=== PATIENT | female | born 1950 | race Caucasian/White ===

== ENCOUNTER 2019-01-26 08:12 | Inpatient (IN) | payer MEDICARE ==
[2019-01-26 08:37] LABS: #Basophils 0.1 thou/uL (0.0-0.2); #Eosinphils 0.6 thou/uL (0.0-0.7); #Lymphocytes 1.5 thou/uL (1.20-3.40); #Monocytes 0.4 thou/uL (0.11-0.59); %Basophils 1.2 % (0.0-1.0); %Eosinophils 8.2 % (0.0-10.0); %Lymphocytes 19.5 % (21.0-51.0); %Monocytes 5.2 % (0.0-10.0); Hemoglobin 13.5 g/dL (12.0-16.0); Mean Corpuscular Hemoglobin 33.2 pg (27.0-31.0); Mean Platelet Volume 7.4 fL (7.4-10.4); Platelet Count 195 thou/uL (130-400); RBC Distribution Width 14.2 % (11.5-14.5); Red Blood Cell (RBC) Count 4.07 mill/uL (4.20-5.40); White Blood Cell (WBC) Count 7.6 thou/uL (4.8-10.8)
[2019-01-26] MEDS ORDERED: Nitroglycerin 2% Ointment 1 INCH/1 GM Packet ONE (08:52)
[2019-01-26] MEDS ORDERED: Furosemide 40 MG/4 ML VIAL ONE (08:52)
[2019-01-26] MEDS ORDERED: Nitrazine Tape 1 ROLL ONE (08:53)
[2019-01-26 09:56] LABS: Carbon Dioxide 29 mmol/L (23-31); Chloride 102 mmol/L (98-107); Potassium 3.3 mmol/L (3.5-5.1); Sodium 138 mmol/L (136-145)
[2019-01-26 09:58] LABS: Anion Gap 10 mmol/L (10-20); BUN (Urea Nitrogen) 13 mg/dL (9.8-20.1); Calc. Creatinine Clearance 0 mL/min (70-130); Estimated GFR-MDRD 35
[2019-01-26 09:59] LABS: Albumin 2.4 g/dL (3.4-4.8); Bilirubin, Total 2.6 mg/dL (0.2-1.2); Calcium 7.9 mg/dL (7.8-10.44); Globulin 5.7 g/dL (2.4-3.5); Glucose 90 mg/dL (80-115); Protein, Total 8.1 g/dL (5.8-8.1)
[2019-01-26 10:00] LABS: ALT (SGPT) 20 U/L (8-55); AST (SGOT) 47 U/L (5-34); Alkaline Phosphatase 87 U/L (40-110)
[2019-01-26] MEDS ORDERED: Aspirin Chewable 81 MG TAB ONE (10:18)
--- NOTE | 2019-01-26 10:25 | RAD ---
PORTABLE CHEST: Date: 01/26/19 HISTORY: Shortness of breath. FINDINGS: Heart size within normal limits for portable technique with atherosclerotic changes of the aorta. The re are some mild chronic appearing interstitial lung changes seen. No focal infiltrative process. IMPRESSION: Chronic appearing lung change. POS: [facility]
[2019-01-26 12:50] LABS: Troponin I Less than 0.010 ng/mL (< 0.028)
[2019-01-26] MEDS ORDERED: Bacteriostatic Water 30 ML VIAL FS PRN (13:01)
[2019-01-26] MEDS ORDERED: Acetaminophen 650 MG Suppository PR PRN (13:07)
--- NOTE | 2019-01-26 14:03 | HP ---
TIME OF ASSESSMENT: 1200 hours. PRIMARY CARE PHYSICIAN: None. CHIEF COMPLAINT: Cough and wheezing. HISTORY OF PRESENT ILLNESS: Ms. Busch is a pleasant 68-year-old woman, who presents with complaints of a new cough for the last three days, productive for white sputum. The patient states she has been wheezing and feeling very short of breath. The patient denies any associated chest pain. She reports feeling feverish at night with chills. She states she was feeling well up until three days ago when she had generalized aching and then began to feel feverish and came down with a cough. Denies being around any sick family members at home. Denies having any history of COPD or asthma. Denies any hemoptysis. Due to feeling unwell, she has been more sedentary for the last three days and reports feeling generally weak. In the emergency department, she underwent an EKG that showed sinus bradycardia with a heart rate of 55. No ST changes or T-wave abnormalities. She had laboratory studies done demonstrating a white count of 7.6, hemoglobin of 13.5, hematocrit 42.2, platelets 195, neutrophils 66%. Sodium 138, potassium 3.3, BUN 13, creatinine 1.48, GFR 35, glucose 90, calcium 7.9, total bilirubin was elevated at 2.6 and AST of 47, ALT 20, alkaline phosphatase 87. Troponin negative x1. BNP 146.5, albumin 2.4. She underwent a chest x-ray that demonstrated chronic appearing lung changes. The patient was thought to be in fluid overload due to history of cirrhosis and was treated with furosemide 80 mg. She was given 324 mg of aspirin and 1 inch of Nitro-Bid. Per the Emergency Department, she had a saturation of 85%, which improved to 96% on 4 L of oxygen by nasal cannula. PAST MEDICAL HISTORY: 1. Nephrolithiasis. 2. Hypothyroidism. 3. Cirrhosis. 4. Irritable bowel syndrome. 5. Hypertension. 6. Psoriasis. 7. Anxiety. 8. Depression. PAST SURGICAL HISTORY: 1. Kidney stone removal. 2. Cholecystectomy. 3. Hernia repair x2. 4. Tonsillectomy. 5. Tubal ligation. SOCIAL HISTORY: The patient lives with her daughter. She recently moved to the area and has not established care with a physician yet. Denies any tobacco use, alcohol consumption, or illicit drug use. ALLERGIES: PENICILLIN, ALBUTEROL. CURRENT MEDICATIONS: 1. Trazodone. 2. Loratadine. 3. Potassium chloride. 4. Lactulose. 5. Morphine. 6. Tylenol with Codeine. 7. Venlafaxine. 8. Synthroid. 9. Tylenol. 10. Lorazepam. 11. Hyoscyamine. 12. Dulcolax. 13. Promethazine. 14. Furosemide. 15. Propranolol. 16. Spironolactone. PHYSICAL EXAMINATION: GENERAL: The patient appears fatigued, but is resting comfortably and is in no acute distress. VITAL SIGNS: Temperature 97.8, pulse 60, blood pressure 148/81, respirations 16, O2 saturation 95% on 4 L of oxygen. HEENT: Normocephalic and atraumatic. Pupils are equal, round, and reactive to light. Sclerae without icterus. Oropharynx is clear. NECK: Supple. No lymphadenopathy. LUNGS: Notable for diffuse inspiratory and expiratory wheezing. No crackles. The patient became significantly short of breath with minimal exertion such as sitting forward in order for me to listen to her lungs. CARDIAC: Regular rate and rhythm. No chest wall tenderness. ABDOMEN: Soft, nondistended, obese, nontender. No guarding or rigidity. No renal angle tenderness. EXTREMITIES: No evidence of edema. No calf tenderness. NEUROLOGIC: Alert and oriented x3. No neuro deficits on exam. SKIN: Warm and dry. INVESTIGATIONS: As mentioned above in HPI. IMPRESSION AND PLAN: Ms. Busch is a 68-year-old woman, who is being admitted for management of the following. 1. Shortness of breath. This was initially felt to be associated with fluid overload. Chest x-ray was unremarkable. No crackles on exam. She did have an elevated BNP 146.5, therefore was treated with 80 mg of IV Lasix in the emergency department. We will obtain an echo, though it appears that the shortness of breath is acute and going on for the last three days along with a cough productive for white sputum, generalized aches and chills. Lactic acid and procalcitonin added on to labs. No evidence of pneumonia on the chest x-ray. Consider CT chest. We will obtain respiratory viral panel as well. Given the fact that she was saturating 85% on room air and does not require oxygen at home and has no underlying lung disease, we will obtain an ABG. We will also add a D-dimer. Due to poor renal function, she may not be able to undergo CT angiogram. We will obtain venous Dopplers. If D-dimer is elevated, we will obtain V/Q scan. 2. Acute kidney injury. The patient with elevated creatinine of 1.48 and a GFR of 35. This was prior to the 80 mg of Lasix given in the emergency department. No evidence of fluid overload on the chest x-ray or on exam. Therefore, we will give very gentle hydration and monitor renal function. Consider Nephrology consult, if renal function worsens. No previous renal functions to compare to, and the patient denies any known history of chronic kidney disease. 3. Elevated bilirubin. Total bilirubin 2.6. We will obtain a direct bilirubin. We will obtain a right upper quadrant ultrasound. Repeat LFTs and lipase with morning labs. Monitor for now. The patient apparently with a known history of cirrhosis. 4. Hypertension. Monitor blood pressure and resume home medications once verified. 5. Hypothyroidism. We will check TSH. Resume home medications once verified. 6. Gastrointestinal prophylaxis with famotidine. 7. Code status full. Surrogate decision maker is her daughter, Beverley Waters. The patient's case was discussed with Dr. Freire, who agrees with plan of care as described above. Job ID: [id number]
[2019-01-26 14:22] LABS: Lactic Acid 1.5 mmol/L (0.5-2.2)
[2019-01-26 14:35] LABS: Actual Bicarbonate (HCO3a) 30.1 mEq/L (22-28); Analyzer IN Cardio ER; Base Excess (BEa) 2.6 mEq/L (-2.0 to +3.0); Calcium, Ionized 1.08 mmol/L (1.12-1.30); Carboxyhemoglobin (COHb) 0.9 gm% (0.0-3.0); Hemoglobin (Hb) 12.8 g/dL (12.0-16.0); Potassium - ABG Lab 3.24 mmol/L (3.70-5.30); pH, Arterial 7.32 (7.35-7.45)
[2019-01-26 14:39] LABS: Puncture Site RRA
--- NOTE | 2019-01-26 15:05 | ULT ---
BILATERAL LOWER EXTREMITY VENOUS ULTRASOUND: Date: 01/26/19 HISTORY: Bilateral lower extremity pain and edema. TECHNIQUE: Multiplanar Vinson scale and color Doppler images were obtained in a bilateral lower extremity venous u ltrasound. Spectral analysis of the Doppler waveforms were performed. FINDINGS: Bilateral common femoral veins, profunda femoral veins, superficial femoral veins, and popliteal vein s are normal in appearance without visible thrombus. These vessels demonstrate normal compression, fl ow, and augmentation. The posterior tibial veins and greater saphenous veins are also patent. IMPRESSION: No evidence of deep venous thrombosis. POS: [facility]
--- NOTE | 2019-01-26 15:12 | ULT ---
RIGHT UPPER QUADRANT ABDOMINAL ULTRASOUND: Date: 01/26/19 COMPARISON: None. HISTORY: Elevated bilirubin with possible ascites. TECHNIQUE: Multiplanar Vinson scale and color Doppler images were obtained in a limited right upper quadrant abdom inal ultrasound. FINDINGS: The liver is nodular and cirrhotic in appearance. There is moderate ascites. No focal liver lesions a re seen. Evaluation is limited secondary to the ascites and cirrhotic appearance of the liver. The pancreas and common bile duct could not be seen at this time. The portal vein was not well visual ized. The right kidney is normal in echogenicity without hydronephrosis or calculus and measures 9.0 cm in length. The gallbladder has been removed. IMPRESSION: Cirrhosis with ascites. POS: [facility]
[2019-01-26 16:15] LABS: Troponin I 0.019 ng/mL (< 0.028)
[2019-01-26] MEDS: Ipratropium Bromide 2.5 ml Neb NEB SCH ×3 (18:56→22:25)
--- NOTE | 2019-01-26 19:12 | NM ---
VQ SCAN: HISTORY: Difficulty breathing. CORRELATION: Chest radiograph from the same date. TECHNIQUE: VQ scan was performed using 10 millicuries Xenon 133 by inhalation for the ventilation study followed by the intravenous administration of 6.6 millicuries of technetium 99m MAA for the perfusion scan. FINDINGS: No mismatched, pleural-based, wedge-shaped, segmental or subsegmental perfusion defects are seen. The re is tracer retention on the wash-out phase of the ventilation study. IMPRESSION: Low probability for pulmonary embolism. POS: [facility]
[2019-01-26] MEDS ORDERED: Potassium Chloride 20 MEQ TAB PO SCH (19:15)
[2019-01-26 20:36] LABS: Actual Bicarbonate (HCO3a) 31.9 mEq/L (22-28); Base Excess (BEa) 4.5 mEq/L (-2.0 to +3.0); Calcium, Ionized 1.09 mmol/L (1.12-1.30); Carboxyhemoglobin (COHb) 0.8 gm% (0.0-3.0); Hemoglobin (Hb) 13.1 g/dL (12.0-16.0); O2 Tension (PaO2) 60.6 mmHg (> 70.0); Potassium - ABG Lab 3.47 mmol/L (3.70-5.30); pH, Arterial 7.34 (7.35-7.45)
[2019-01-26 20:40] LABS: CO2 Tension 60.7 mmHg (35.0-45.0)
[2019-01-26 20:41] LABS: ALV-art Gradient 63.165 (0-20); Puncture Site RRADIAL
[2019-01-26] MEDS ORDERED: Prevnar 13-Val Conj/PF 0.5 ML SYRINGE IM ONE (21:00)
[2019-01-26] MEDS ORDERED: FLU VACC TS2019-20(65YR UP)/PF 180 MCG/0.5 ML SYRINGE IM ONE (21:00)
[2019-01-26] MEDS: Famotidine/PF 20 mg/2ml Vial SLOW IVP SCH (21:34)
[2019-01-26] MEDS: Sodium Chloride 0.9% 1,000 ML IV SCH (21:34)
[2019-01-26] MEDS: methylPREDNISolone Sod Succ 40 MG VIAL IVP SCH (21:34)
[2019-01-27] MEDS: methylPREDNISolone Sod Succ 40 MG VIAL IVP SCH ×3 (01:26→13:05)
[2019-01-27] MEDS: Ipratropium Bromide 2.5 ml Neb NEB SCH ×4 (03:06→13:48)
[2019-01-27 05:02] LABS: #Lymphocytes 0.6 thou/uL (1.20-3.40); #Neutrophils 3.7 thou/uL (1.40-6.50); %Eosinophils 0.6 % (0.0-10.0); %Lymphocytes 13.8 % (21.0-51.0); %Monocytes 0.8 % (0.0-10.0); %Neutrophils 84.8 % (42.0-75.0); Hemoglobin 11.6 g/dL (12.0-16.0); Mean Corpuscular Hemoglobin 33.4 pg (27.0-31.0); Mean Platelet Volume 7.7 fL (7.4-10.4); Platelet Count 135 thou/uL (130-400); RBC Distribution Width 13.9 % (11.5-14.5); Red Blood Cell (RBC) Count 3.46 mill/uL (4.20-5.40); White Blood Cell (WBC) Count 4.4 thou/uL (4.8-10.8)
[2019-01-27 05:22] LABS: ALT (SGPT) 16 U/L (8-55); AST (SGOT) 37 U/L (5-34); Albumin 2.1 g/dL (3.4-4.8); Alkaline Phosphatase 74 U/L (40-110); Bilirubin, Direct 1.2 mg/dL (0.1-0.3); Cardiac Risk 3.7 (Less than 4.5); Cholesterol 89 mg/dl (< 200 Desired); HDL Cholesterol 24 mg/dL (>60 Neg Risk); LDL Cholesterol, Calculated 51 mg/dL; Protein, Total 7.2 g/dL (6.0-8.3); Triglycerides 71 mg/dL (Less than 150)
[2019-01-27 05:25] LABS: Anion Gap 7 mmol/L (10-20); BUN (Urea Nitrogen) 15 mg/dL (9.8-20.1); Calc. Creatinine Clearance 53 mL/min (70-130); Calcium 7.7 mg/dL (7.8-10.44); Carbon Dioxide 32 mmol/L (23-31); Chloride 102 mmol/L (98-107); Estimated GFR-MDRD 35; Glucose 158 mg/dL (80-115); Lipase 21 U/L (8-78); Sodium 137 mmol/L (136-145)
[2019-01-27] MEDS: Famotidine/PF 20 mg/2ml Vial SLOW IVP SCH (09:32)
[2019-01-27 11:44] LABS: Actual Bicarbonate (HCO3a) 25.7 mEq/L (22-28); Base Excess (BEa) -0.7 mEq/L (-2.0 to +3.0); CO2 Tension 49.6 mmHg (35.0-45.0); Calcium, Ionized 1.11 mmol/L (1.12-1.30); Hemoglobin (Hb) 12.7 g/dL (12.0-16.0); O2 Tension (PaO2) 75.4 mmHg (> 70.0); Potassium - ABG Lab 3.83 mmol/L (3.70-5.30); pH, Arterial 7.33 (7.35-7.45)
--- NOTE | 2019-01-27 11:45 | PDOC.HOSPP ---
- Subjective Encounter Date: 01/27/19 Encounter Time: 11:43 Subjective: 68 y/o female with liver cirrhosis, nephrolithiasis, Psoriasis,HTN and IBS admitted with worsening cough and SOB associated with sputum production and wheezing as well as chills and subjective fever. CXR showed chronic appearing interstitial infiltrates. Reports feeling better. - Objective Vital Signs & Weight: Vital Signs (12 hours) Temp Pulse Pulse Pulse Resp BP BP 01/27/19 10:00 65 104/54 L 01/27/19 08:40 68 70 111/56 L 01/27/19 07:45 97.5 F L 74 18 127/62 01/27/19 07:05 63 18 01/27/19 04:00 97.9 F 59 L 16 124/60 01/27/19 03:06 16 Pulse Ox Pulse Ox Pulse Ox 01/27/19 10:00 01/27/19 08:40 93 L 92 L 01/27/19 07:45 93 L 01/27/19 07:05 88 L 01/27/19 04:00 93 L 01/27/19 03:06 Weight Weight 209 lb 6.4 oz I&O: 01/26/19 01/27/19 01/28/19 06:59 06:59 06:59 Intake Total 240 Balance 240 Result Diagrams: 01/27/19 04:21 01/27/19 04:21 Hospitalist ROS - Medication Medications: Active Medications Generic Name Dose Route Start Last Admin Trade Name Freq PRN Reason Stop Dose Admin Famotidine 20 mg 01/26/19 21:00 01/27/19 09:32 Pepcid SLOW IVP 20 mg Q12HR PATSY Administration Sodium Chloride 1,000 mls @ 30 mls/hr 01/26/19 13:30 01/26/19 21:34 Normal Saline 0.9% IV 1,000 mls .Q24H PATSY Administration Ipratropium [place] 2.5 ml 01/26/19 14:30 01/27/19 07:05 Atrovent NEB 2.5 ml [id number] PATSY Administration Methylprednisolone Sodium Succinate 40 mg 01/26/19 18:00 01/27/19 05:50 Solu-Medrol IVP 40 mg Q6HR PATSY Administration - Exam General Appearance: awake alert ENT: normocephalic atraumatic Neck: symmetric, no JVD Heart: RRR, murmur present Respiratory - other findings: fair air entry with prolongedexpiration and rhonchi Gastrointestinal: soft, non-tender, normal bowel sounds, distended Extremities: no cyanosis, no edema Neurological: cranial nerve grossly intact, no focal deficits Psychiatric: A&O x 3 Hosp A/P (1) Acute respiratory failure with hypoxia and hypercapnia Code(s): J96.01 - ACUTE RESPIRATORY FAILURE WITH HYPOXIA; J96.02 - ACUTE RESPIRATORY FAILURE WITH HYPERCAPNIA Status: Acute (2) Pneumonia Code(s): J18.9 - PNEUMONIA, UNSPECIFIED ORGANISM Status: Acute (3) COPD (chronic obstructive pulmonary disease) with acute bronchitis Code(s): J44.0 - CHR OBSTRUCTIVE PULMON DISEASE WITH (ACUTE) LOWER RESP INFCT; J20.9 - ACUTE BRONCHITIS, UNSPECIFIED Status: Acute (4) Decompensated hepatic cirrhosis Code(s): K72.90 - HEPATIC FAILURE, UNSPECIFIED WITHOUT COMA Status: Acute (5) Ascites Code(s): R18.8 - OTHER ASCITES Status: Acute (6) HTN (hypertension) Code(s): I10 - ESSENTIAL (PRIMARY) HYPERTENSION Status: Acute (7) Mitral regurgitation Status: Acute (8) Nephrolithiasis Status: Acute (9) IBS (irritable bowel syndrome) Status: Acute (10) Psoriasis Code(s): L40.9 - PSORIASIS, UNSPECIFIED Status: Acute (11) Hypothyroidism Code(s): E03.9 - HYPOTHYROIDISM, UNSPECIFIED Status: Acute (12) Obesity (BMI 35.0-39.9 without comorbidity) Code(s): E66.9 - OBESITY, UNSPECIFIED Status: Acute (13) CKD (chronic kidney disease) Code(s): N18.9 - CHRONIC KIDNEY DISEASE, UNSPECIFIED Status: Acute (14) CKD (chronic kidney disease) stage 3, GFR 30-59 ml/min Code(s): N18.3 - CHRONIC KIDNEY DISEASE, STAGE 3 (MODERATE) Status: Acute (15) Hypokalemia Code(s): E87.6 - HYPOKALEMIA Status: Acute (16) Hypoalbuminemia Code(s): E88.09 - OTH DISORDERS OF PLASMA-PROTEIN METABOLISM, NEC Status: Acute - Plan Start IV levaquin and oral mucinex. Get sputum culture Continue bronchoodilators and steroid Get urinalysis and urine electrolytes. Hold diuretics. get repeat ABG. Paracentesis contemplated. Get coagulation panel in the am. Start lactulose
[2019-01-27] MEDS ORDERED: guaiFENesin ER 600 MG TAB PO SCH (12:15)
[2019-01-27] MEDS: Sodium Chloride 0.9% 1,000 ML IV SCH (13:07)
[2019-01-27 13:31] LABS: Bacteria/HPF None Seen HPF (None Seen); Bilirubin Negative (Negative); Blood, Urine Negative (Negative); Calcium Oxalate Crystals 2+ HPF (None Seen); Clarity Clear (Clear); Glucose, Urine (Dipstick) Normal (Negative); Leukocyte Negative Leu/uL (Negative); Nitrite Negative (Negative); Protein, Urine (Dipstick) 10 mg/dL (Neg-Trace); RBC/HPF 0-3 HPF (0-3); Urobilinogen 3 mg/dL (Less than 2); WBC/HPF 0-3 HPF (0-3)
[2019-01-27 13:36] LABS: Urine Culture Reflex No No
[2019-01-27 13:47] LABS: Creatinine, Urine 300.82 mg/dL (47-110); Protein, Urine Random Quant 20 mg/dL (1-14); Sodium, Urine Less than 20 mmol/L (Not Available); Urea Nitrogen, Random Urine 670 mg/dl
[2019-01-27] MEDS ORDERED: Ipratropium Bromide 2.5 ml Neb NEB PRN (17:23)
--- NOTE | 2019-01-27 17:40 | CON ---
DATE OF CONSULTATION: 01/27/2019 SERVICE: Pulmonary Medicine. REASON FOR CONSULTATION: Shortness of breath. HISTORY OF PRESENT ILLNESS: The patient is a 68-year-old white female with past medical history significant for advanced cirrhosis. For the past 3 days, she has had increasing abdominal swelling and difficulty breathing. She has decreased p.o. intake. She has known cirrhosis, and she was scheduled to get a paracentesis a couple of days ago, but her nursing facility did not bring her. Ultimately, she had this increasing belly discomfort and swelling. She has been coughing, but has not been able to liberate any sputum. She has a dyspnea on exertion, and some audible wheezing. Otherwise, she did not have any fevers or chills, cough, sputum production, or night sweats. Overall, she really does not feel sick. She has cannot breathe because of her belly distention based on what she tells me. PAST MEDICAL HISTORY: 1. Cirrhosis, advanced. 2. Hypothyroidism. 3. Nephrolithiasis. 4. IBS. 5. Hypertension. 6. Psoriasis. 7. Anxiety disorder. 8. Major depressive disorder. PAST SURGICAL HISTORY: 1. Kidney stone extraction. 2. Cholecystectomy. 3. Herniorrhaphy x2. 4. Tonsillectomy. 5. Tubal ligation. SOCIAL HISTORY: Negative for alcohol, tobacco, or illicit drug use. She was in a nursing facility, but has subsequently left that. She was recently on hospice because she was doing well, she was actually discharged. Denies any current alcohol, tobacco, or illicit drug use. She has no exposure to chemicals, dust, asbestos, or tuberculosis. FAMILY HISTORY: Noncontributory. ALLERGIES: PENICILLIN, ALBUTEROL. MEDICATIONS: List of her inpatient medications was reviewed. No specific updates were made at this time. REVIEW OF SYSTEMS: General; head, ears, eyes, nose, and throat; cardiovascular; respiratory; GI; ; musculoskeletal; neurologic; and skin is negative except as mentioned is the HPI. PHYSICAL EXAMINATION: VITAL SIGNS: Afebrile. Pulse 77, blood pressure 114/59, respirations 18, and saturation 93% on 2L nasal cannula. GENERAL: The patient is awake and alert, in no apparent distress. LUNGS: There is decreased air entry. There is absolutely no prolonged expiratory phase. I do hear a little bit of wheezing. Most of this is transmitted from the upper airway. Dependent crackles are minimal. HEART: Normal rate. Regular. ABDOMEN: Widely distended. Bowel sounds are active. There is tenderness to palpation throughout, but there is no rebound or guarding present. NEUROLOGIC: Grossly nonfocal. : No Gamino. MUSCULOSKELETAL: No cyanosis or clubbing. I appreciate no edema. LABORATORY DATA: Sodium 137, bicarb 32, creatinine 1.48. Basic metabolic profile is otherwise unremarkable. Direct bilirubin is 1.2, with a total bilirubin of 2.0. Liver function studies otherwise unremarkable. TSH 43. Procalcitonin 0.06. Lipase 21. BNP 146. Troponin is negative. Urinalysis is unremarkable except for calcium oxalate crystals. Respiratory virus panel is positive for rhinovirus. Respiratory cultures unremarkable. ASSESSMENT: 1. Acute bronchitis secondary to rhinovirus, improving. 2. Cirrhosis with ascites. DISCUSSION AND PLAN: The patient may have a little bit of bronchitis, but I think her biggest issue with her respiration is her abdominal swelling and tense ascites. I will set her up for paracentesis tomorrow morning with Interventional Radiology for both diagnostic and therapeutic purposes. Steroids will be dropped to prednisone. We will limit her to a 5-day course. Nebulized medications will be provided on an as-needed basis only. I do not believe any antibiotics are absolutely mandatory at this point. Pulmonary/Critical Care will follow along for 1 more day. If she has improvement in respiratory symptoms with a paracentesis, she will be stable for discharge from the hospital. Job ID: [id number]
[2019-01-27] MEDS: guaiFENesin ER 600 MG TAB PO SCH (20:19)
[2019-01-28 05:03] LABS: #Lymphocytes 0.8 thou/uL (1.20-3.40); #Monocytes 0.4 thou/uL (0.11-0.59); #Neutrophils 7.8 thou/uL (1.40-6.50); %Eosinophils 0.2 % (0.0-10.0); %Lymphocytes 8.5 % (21.0-51.0); %Monocytes 4.4 % (0.0-10.0); %Neutrophils 86.9 % (42.0-75.0); Hemoglobin 11.2 g/dL (12.0-16.0); Mean Corpuscular HGB CONC 32.1 g/dL (32.0-36.0); Mean Corpuscular Hemoglobin 33.3 pg (27.0-31.0); Mean Platelet Volume 7.7 fL (7.4-10.4); Platelet Count 129 thou/uL (130-400); RBC Distribution Width 14.1 % (11.5-14.5); Red Blood Cell (RBC) Count 3.36 mill/uL (4.20-5.40)
[2019-01-28 05:04] LABS: INR-International Normal Ratio 1.7; PTT 37.5 SEC (22.9-36.1); Prothrombin Time 19.9 SEC (12.0-14.7)
[2019-01-28 05:18] LABS: Anion Gap 9 mmol/L (10-20); BUN (Urea Nitrogen) 17 mg/dL (9.8-20.1); BUN/Creatinine Ratio 12.23; Calc. Creatinine Clearance 56 mL/min (70-130); Calcium 7.9 mg/dL (7.8-10.44); Carbon Dioxide 30 mmol/L (23-31); Chloride 102 mmol/L (98-107); Estimated GFR-MDRD 37; Glucose 125 mg/dL (80-115); Phosphorus 2.7 mg/dL (2.3-4.7); Potassium 3.8 mmol/L (3.5-5.1); Sodium 137 mmol/L (136-145)
[2019-01-28] MEDS: predniSONE 20 MG TAB PO SCH (07:27)
[2019-01-28] MEDS: guaiFENesin ER 600 MG TAB PO SCH ×2 (07:28→19:45)
[2019-01-28] MEDS ORDERED: Phytonadione 10 MG/ML AMP PO SCH (08:00)
--- NOTE | 2019-01-28 09:33 | PRG ---
DATE OF SERVICE: 01/28/2019 SERVICE: Pulmonary Medicine. INTERVAL HISTORY: The patient is breathing a little bit better today. That being said, she has not made any robust recovery. She indicates that her cough is improved slightly. Denies any fevers, chills, nausea, or vomiting. There were no significant overnight events. She is yet to go down for paracentesis. PHYSICAL EXAMINATION: VITAL SIGNS: Afebrile, pulse 66, blood pressure 136/63, respirations 17, and saturation 94% on 2 L nasal cannula. GENERAL: The patient is awake and alert, in no apparent distress. LUNGS: Much improved air entry. There is no prolonged expiratory phase, though minimal wheezing is present. Rhonchi have much improved. HEART: Normal rate and regular. ABDOMEN: Soft, nontender, and nondistended. Bowel sounds are positive. MUSCULOSKELETAL: No cyanosis or clubbing. No pitting in the bilateral lower extremities. NEUROLOGIC: Grossly nonfocal. LABORATORY DATA: WBC 9.0, hemoglobin 11.2 and stable, platelets 129,000, gently downtrending. INR 1.7. Creatinine 1.39. Basic metabolic profile is otherwise unremarkable. Albumin 2.0 and procalcitonin 0.06. Respiratory virus panel is positive for rhinovirus. Respiratory culture is negative to date. ASSESSMENT: 1. Acute hypoxic respiratory failure, resolving. 2. Acute bronchitis secondary to rhinovirus, resolving. 3. Cirrhosis with tense ascites. DISCUSSION AND PLAN: I believe most of the patient's respiratory difficulties are associated with her tense ascites. That being said, the acute bronchitis certainly is not helping. She can have a 5-day course of steroids to help with the inflammation of the lung. If her breathing is considerably better and she is off oxygen after her paracentesis, she can be considered for transition out of the hospital. I do not believe she has COPD. The chest x-ray suggests her lung volumes are quite small and expiratory time at bedside is quite short. If she develops progressive dyspnea on exertion in the outpatient setting, she is more than welcome to come and visit with me in clinic, but no formal followup will be arranged. If she gets increasing respiratory difficulties, please give me a phone call. At this point, I will sign off. Job ID: [id number]
--- NOTE | 2019-01-28 11:23 | ULT ---
Sonographic guided paracentesis HISTORY: Recurrent ascites. FINDINGS: After explaining the procedure and answering all questions, sonographic survey shows large amount of free fluid throughout the abdomen. Sterile technique, buffered local anesthesia, sonographic guidance, and a right lower quadrant approa ch were used to carefully advance a 19-gauge Yueh needle and catheter into the free fluid. Catheter was left to drain a total volume of 4.0 L cloudy yellow liquid. Catheter was removed with small amoun t of fluid remaining. Patient tolerated the procedure well and was returned in good condition. IMPRESSION: Technically successful sonographic guided paracentesis.
[2019-01-28] MEDS: Acetaminophen 325 MG TAB PO PRN (12:30)
[2019-01-28 13:37] VITALS: BMI 36.1
--- NOTE | 2019-01-28 15:45 | PDOC.HOSPP ---
- Subjective Encounter Date: 01/28/19 Encounter Time: 15:44 Subjective: 68 y/o female with liver cirrhosis, nephrolithiasis, Psoriasis,HTN and IBS admitted with worsening cough and SOB associated with sputum production and wheezing as well as chills and subjective fever. CXR showed chronic appearing interstitial infiltrates. Had paracentesis earlier today with improvement of respiratory status such that oxygen was weaned off. She however continue to have cough. She does think she is ready to go home. - Objective Vital Signs & Weight: Vital Signs (12 hours) Temp Pulse Pulse Resp BP BP Pulse Ox 01/28/19 13:54 77 113/88 01/28/19 11:01 97.7 F 63 16 115/69 92 L 01/28/19 07:01 97.6 F 66 17 136/63 94 L Weight Admit Weight 209 lb Weight 210 lb 2 oz I&O: 01/27/19 01/28/19 01/29/19 06:59 06:59 06:59 Intake Total 1140 Output Total 650 Balance 490 Result Diagrams: 01/28/19 04:41 01/28/19 04:41 Hospitalist ROS - Medication Medications: Active Medications Generic Name Dose Route Start Last Admin Trade Name Freq PRN Reason Stop Dose Admin Acetaminophen 650 mg 01/26/19 13:07 01/28/19 12:30 Tylenol PO 650 mg Q4H PRN Administration Headache/Fever/Mild Pain (1-3) Guaifenesin 600 mg 01/27/19 21:00 01/28/19 07:28 Mucinex PO 600 mg Q12HR PATSY Administration Ipratropium [place] 2.5 ml 01/27/19 17:23 01/27/19 18:17 Atrovent NEB 2.5 ml Q6H PRN Administration SOB &/or Wheezing Prednisone 40 mg 01/28/19 08:00 01/28/19 07:27 Prednisone PO 01/30/19 08:01 40 mg QAM-WM PATSY Administration - Exam General Appearance: awake alert ENT: normocephalic atraumatic, moist mucosa Neck: supple, symmetric, no JVD Heart: RRR, murmur present Respiratory - other findings: fair air entry bilaterally with transmitted sound and scattered rhonchi Gastrointestinal: soft, non-tender, normal bowel sounds Extremities: no edema Neurological: cranial nerve grossly intact, no focal deficits Psychiatric: normal affect, A&O x 3 Hosp A/P (1) Acute respiratory failure with hypoxia and hypercapnia Code(s): J96.01 - ACUTE RESPIRATORY FAILURE WITH HYPOXIA; J96.02 - ACUTE RESPIRATORY FAILURE WITH HYPERCAPNIA Status: Acute (2) Pneumonia Code(s): J18.9 - PNEUMONIA, UNSPECIFIED ORGANISM Status: Acute (3) COPD (chronic obstructive pulmonary disease) with acute bronchitis Code(s): J44.0 - CHR OBSTRUCTIVE PULMON DISEASE WITH (ACUTE) LOWER RESP INFCT; J20.9 - ACUTE BRONCHITIS, UNSPECIFIED Status: Acute (4) Decompensated hepatic cirrhosis Code(s): K72.90 - HEPATIC FAILURE, UNSPECIFIED WITHOUT COMA Status: Acute (5) Ascites Code(s): R18.8 - OTHER ASCITES Status: Acute (6) HTN (hypertension) Code(s): I10 - ESSENTIAL (PRIMARY) HYPERTENSION Status: Acute (7) Mitral regurgitation Status: Acute (8) Nephrolithiasis Status: Acute (9) IBS (irritable bowel syndrome) Status: Acute (10) Psoriasis Code(s): L40.9 - PSORIASIS, UNSPECIFIED Status: Acute (11) Hypothyroidism Code(s): E03.9 - HYPOTHYROIDISM, UNSPECIFIED Status: Acute (12) Obesity (BMI 35.0-39.9 without comorbidity) Code(s): E66.9 - OBESITY, UNSPECIFIED Status: Acute (13) CKD (chronic kidney disease) Code(s): N18.9 - CHRONIC KIDNEY DISEASE, UNSPECIFIED Status: Acute (14) CKD (chronic kidney disease) stage 3, GFR 30-59 ml/min Code(s): N18.3 - CHRONIC KIDNEY DISEASE, STAGE 3 (MODERATE) Status: Acute (15) Hypokalemia Code(s): E87.6 - HYPOKALEMIA Status: Acute (16) Hypoalbuminemia Code(s): E88.09 - OTH DISORDERS OF PLASMA-PROTEIN METABOLISM, NEC Status: Acute (17) Coagulopathy Status: Acute - Plan Continue steroid, bronchodilators and mucinex. Off antibiotic as per Pulmonary Continue to hold diuretics. Start Vitamin K for coagulaopathy. Continue lactulose Repeat Renal function and INR in the am.
[2019-01-29] MEDS: Acetaminophen 325 MG TAB PO PRN (03:06)
[2019-01-29 05:12] LABS: INR-International Normal Ratio 1.6; Prothrombin Time 19.1 SEC (12.0-14.7)
[2019-01-29 05:27] LABS: ALT (SGPT) 15 U/L (8-55); AST (SGOT) 30 U/L (5-34); Albumin 1.9 g/dL (3.4-4.8); Alkaline Phosphatase 75 U/L (40-110); Anion Gap 7 mmol/L (10-20); BUN (Urea Nitrogen) 19 mg/dL (9.8-20.1); Bilirubin, Total 1.2 mg/dL (0.2-1.2); Calc. Creatinine Clearance 67 mL/min (70-130); Calcium 7.8 mg/dL (7.8-10.44); Carbon Dioxide 31 mmol/L (23-31); Chloride 102 mmol/L (98-107); Estimated GFR-MDRD 45; Globulin 4.8 g/dL (2.4-3.5); Glucose 97 mg/dL (80-115); Potassium 3.6 mmol/L (3.5-5.1); Protein, Total 6.7 g/dL (6.0-8.3); Sodium 136 mmol/L (136-145)
[2019-01-29] MEDS: predniSONE 20 MG TAB PO SCH (08:44)
[2019-01-29] MEDS: guaiFENesin ER 600 MG TAB PO SCH (08:45)
[2019-01-29] MEDS ORDERED: Phytonadione 10 MG/ML AMP PO SCH (09:00)
[2019-01-29 11:25] VITALS: BP 137/67; TEMP 97.5
--- NOTE | 2019-01-30 22:26 | DIS ---
DATE OF ADMISSION: 01/26/2019 DATE OF DISCHARGE: 01/29/2019 DISCHARGE DIAGNOSES: 1. Acute respiratory failure with hypoxia and hypercapnia. 2. Acute bronchitis. 3. Decompensated hepatic cirrhosis. 4. Ascites. 5. Hypertension. 6. Mitral regurgitation. 7. History of nephrolithiasis. 8. History of irritable bowel syndrome. 9. Psoriasis. 10. Hypothyroidism. 11. Morbid obesity. 12. Chronic kidney disease stage 3. 13. Hypokalemia. 14. Hypoalbuminemia. 15. 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 CONSULTATIONS: Pulmonary and Critical Care. PROCEDURE PERFORMED: Paracentesis. HOSPITAL COURSE: A 68-year-old female with liver cirrhosis, nephrolithiasis, psoriasis, hypertension, and irritable bowel syndrome, admitted with worsening cough and shortness of breath associated with sputum production and wheezing as well as chills and subjective fever. Chest x-ray showed chronic-appearing interstitial infiltrate. Arterial blood gas showed respiratory acidosis with hypercarbia, pCO2 of 60. Impression of acute bronchitis with COPD to rule out pneumonia leading to acute respiratory failure with hypoxia and hypercapnia was made and patient was started on antibiotics therapy as well as steroid and bronchodilators. Further evaluation revealed abdominal distention and ascites. It was subsequently felt that the respiratory symptoms were purely due to abdominal distention causing atelectasis of the lung. Thoracentesis was arranged, following which respiratory symptoms improved and patient was subsequently weaned off oxygen. However, she continued to cough, hence steroids and bronchodilators were continued. Pulmonary was of the view that the patient does not need antibiotics, but she needed to complete steroid course. Patient improved generally and was subsequently discharged home. PHYSICAL EXAMINATION: VITAL SIGNS: Temperature 97.5, pulse 62, respiratory rate 18, SpO2 of 92% on room air, blood pressure 137/67. GENERAL: Elderly female, in no distress. Afebrile. Anicteric. Acyanotic. HEENT: Normocephalic, atraumatic. Oral mucosa is moist. CARDIOVASCULAR: Regular rhythm and rate with soft systolic murmur. RESPIRATORY: Fair air entry bilaterally. Few transmitted breath sounds and few scattered rhonchi. Work of breathing is not increased. GASTROINTESTINAL: Full, soft, nontender, nondistended with normal bowel sounds. EXTREMITIES: Grossly normal looking, atraumatic with no edema. CENTRAL NERVOUS SYSTEM: Conscious, alert, oriented x3 with appropriate mental status. Cranial nerves 2 through 12 are grossly intact. DISCHARGE CONDITION: Improved. DISCHARGE DISPOSITION: Home. DISCHARGE MEDICATIONS: 1. Furosemide 20 mg p.o. daily. 2. Levothyroxine 150 mcg p.o. daily. 3. Propranolol 20 mg p.o. daily. 4. Trazodone 50 mg p.o. daily at bedtime. 5. Venlafaxine 37.5 mg p.o. daily at bedtime. 6. Mucinex 600 mg p.o. b.i.d. 7. Acetaminophen 650 mg p.o. q.4 p.r.n. for pain. 8. Albuterol HFA one inhalation every 4 hours p.r.n. for shortness of breath. 9. Lactulose 10 g p.o. daily. 10. Spironolactone 25 mg p.o. daily. TIME SPENT: This discharge took more than 36 minutes. Job ID: [id number]
== END 2019-01-29 12:50 | disposition home or self-care (01) | DRG 432 ==
LOC: ERS 08:12 → 2NO 18:32
PROVIDERS: ADMIT Internal Medicine; ATTEND Student in an Organized Health Care Education/Training Program
PROC: 0W9G3ZZ Drainage of Peritoneal Cavity, Percutaneous Approach (ICD-10-PCS; principal; 2019-01-28)
DX: K74.60 Unspecified cirrhosis of liver (principal); J96.01 Acute respiratory failure with hypoxia; J96.02 Acute respiratory failure with hypercapnia; J18.9 Pneumonia, unspecified organism; I13.0 Hypertensive heart and chronic kidney disease with heart failure and stage 1 through stage 4 chronic kidney disease, or unspecified chronic kidney disease; N17.9 Acute kidney failure, unspecified; J44.1 Chronic obstructive pulmonary disease with (acute) exacerbation; R18.8 Other ascites; J44.0 Chronic obstructive pulmonary disease with (acute) lower respiratory infection; N18.3 Chronic kidney disease, stage 3 (moderate); E88.09 Other disorders of plasma-protein metabolism, not elsewhere classified; J20.9 Acute bronchitis, unspecified; L04.9 Acute lymphadenitis, unspecified; E03.9 Hypothyroidism, unspecified; F41.9 Anxiety disorder, unspecified; F32.9 Major depressive disorder, single episode, unspecified; E66.9 Obesity, unspecified; E87.6 Hypokalemia; Z98.51 Tubal ligation status; Z90.49 Acquired absence of other specified parts of digestive tract; Z88.0 Allergy status to penicillin
CPT/HCPCS: 36415; 36416; 49083; 71045; 76705; 78582; 80048; 80053; 80061; 80069; 80076; 81001; 82248; 82570; 82805; 83605; 83690; 83735; 83880; 84145; 84156; 84300; 84443; 84484; 84540; 85025; 85379; 85610; 85730; 87070; 87205; 87633; 90471; 90662; 90670; 93005; 93306; 93970; 96374; A9540; A9558; G0008; G0009; J1940; J1956; J2920; J3430; J7512; S0028

== ENCOUNTER 2019-02-06 09:30 | Inpatient (IN) | payer MEDICARE ==
[2019-02-06 11:09] LABS: #Eosinphils 0.3 thou/uL (0.0-0.7); #Lymphocytes 1.5 thou/uL (1.20-3.40); #Monocytes 0.4 thou/uL (0.11-0.59); #Neutrophils 5.8 thou/uL (1.40-6.50); %Basophils 0.6 % (0.0-1.0); %Eosinophils 3.8 % (0.0-10.0); %Lymphocytes 18.4 % (21.0-51.0); %Monocytes 5.4 % (0.0-10.0); %Neutrophils 71.9 % (42.0-75.0); Hemoglobin 12.5 g/dL (12.0-16.0); Mean Corpuscular HGB CONC 32.7 g/dL (32.0-36.0); Mean Corpuscular Hemoglobin 34.3 pg (27.0-31.0); Mean Platelet Volume 7.9 fL (7.4-10.4); Platelet Count 182 thou/uL (130-400); RBC Distribution Width 14.6 % (11.5-14.5); Red Blood Cell (RBC) Count 3.64 mill/uL (4.20-5.40); White Blood Cell (WBC) Count 8.1 thou/uL (4.8-10.8)
[2019-02-06] MEDS ORDERED: Iopamidol-370 76% 500 ML 1 ML ONE (11:42)
[2019-02-06 11:52] LABS: ALT (SGPT) 16 U/L (8-55); AST (SGOT) 49 U/L (5-34); Albumin 2.4 g/dL (3.4-4.8); Alkaline Phosphatase 75 U/L (40-110); Anion Gap 11 mmol/L (10-20); BUN (Urea Nitrogen) 12 mg/dL (9.8-20.1); Bilirubin, Total 3.9 mg/dL (0.2-1.2); Calc. Creatinine Clearance 0 mL/min (70-130); Calcium 8.2 mg/dL (7.8-10.44); Carbon Dioxide 30 mmol/L (23-31); Chloride 101 mmol/L (98-107); Estimated GFR-MDRD 59; Globulin 5.7 g/dL (2.4-3.5); Glucose 162 mg/dL (80-115); Lipase 17 U/L (8-78); Potassium 4.1 mmol/L (3.5-5.1); Protein, Total 8.1 g/dL (6.0-8.3); Sodium 138 mmol/L (136-145)
--- NOTE | 2019-02-06 12:24 | CT ---
CT ANGIOGRAM OF THE CHEST: HISTORY: Dyspnea. COMPARISON: None. TECHNIQUE: CT angiogram of the chest is performed in the axial plane. Three-dimensional reformatted images are s ubmitted for interpretation. FINDINGS: Mediastinum: No mass, lymphadenopathy or hematoma. Heart: Normal size. No significant pericardial fluid. Aorta: No aneurysm or dissection Upper solid abdominal viscera: Nodularity of the liver compatible with cirrhotic change. There is jojo dence of extensive ascites. Axilla: There are enlarged bilateral axillary lymph nodes. Right axillary lymph node measures 1.6 x 0 .9 cm. Enlarged left axillary lymph node measures 1.0 x 2.0 cm. Trachea and central bronchi: Patent. Pleural spaces: No effusion. Lung parenchyma: Dependent atelectatic changes in the lung bases. There is a 1.1 x 1.1 cm bleb in the middle lobe. Pneumothorax: None. Osseous structures: No lytic or blastic lesions. Pulmonary arteries: Adequate contrast opacification pulmonary arterial system to the level of segment al arteries. No filling defect to suggest pulmonary embolism. IMPRESSION: 1. Nonspecific enlarged bilateral axillary lymph nodes 2. Cirrhosis with ascites. 3. No evidence of pulmonary artery embolism to the level of the segmental arteries. Transcribed Date/Time: 02/06/2019 12:32 PM
[2019-02-06 19:10] LABS: RBC Count-Automated (BF) 1017 /cumm; WBC/Nucleated-Auto (BF) 92 uL
[2019-02-06 19:11] LABS: BF Color Yellow; Body Fluid Source Ascites Body Fluid; Clarity Cloudy/Turbid (Clear); Tube # EDTA
[2019-02-06 19:14] LABS: BF Segmented Neutrophils 28 %; Cell Count Non Hematic 35 %
[2019-02-06 19:15] LABS: Eosinophils 1 %; Lymphocytes 36 %
[2019-02-06] MEDS ORDERED: Acetaminophen 325 MG TAB PO PRN (20:11)
[2019-02-06] MEDS ORDERED: Ondansetron PF 4 MG/2 ML Vial IVP PRN (20:11)
[2019-02-06] MEDS ORDERED: Ondansetron ODT 4 MG TAB SL PRN (20:11)
[2019-02-06 20:12] VITALS: BMI 32.1
[2019-02-06] MEDS ORDERED: Vancomycin HCl 1.75 GM in Sodium Chloride 0.9% 500 ML IVPB SCH (21:00)
[2019-02-06] MEDS: Enoxaparin Sodium 40 MG/0.4 ML SYRINGE SC SCH (21:34)
--- NOTE | 2019-02-07 10:34 | PDOC.HOSPP ---
- Subjective Encounter Date: 02/07/19 Encounter Time: 10:30 Subjective: expresses no complaint. Feels better. - Objective Vital Signs & Weight: Vital Signs (12 hours) Temp Pulse Resp BP Pulse Ox 02/07/19 07:46 98.0 F 96 18 107/70 97 02/07/19 04:00 99.3 F 19 115/70 99 02/06/19 23:48 98.8 F 81 19 140/82 98 Weight Weight 187 lb 1.6 oz I&O: 02/06/19 02/07/19 02/08/19 06:59 06:59 06:59 Intake Total 870 Balance 870 Result Diagrams: 02/06/19 10:31 02/06/19 10:31 Hospitalist ROS - Medication Medications: Active Medications Generic Name Dose Route Start Last Admin Trade Name Freq PRN Reason Stop Dose Admin Enoxaparin Sodium 40 mg 02/06/19 21:00 02/06/19 21:34 Lovenox SC 40 mg 0900,2100 PATSY Administration Levofloxacin 500 mg/ Device 100 mls @ 100 mls/hr 02/06/19 23:00 02/06/19 23: 25 IVPB 100 mls 2300 PATSY Administration - Exam General Appearance: NAD Neck: no JVD Heart: RRR Respiratory: CTAB Gastrointestinal: soft Extremities: no edema Neurological: no weakness Psychiatric: normal affect Hosp A/P (1) COPD (chronic obstructive pulmonary disease) with acute bronchitis Code(s): J44.0 - CHR OBSTRUCTIVE PULMON DISEASE WITH (ACUTE) LOWER RESP INFCT; J20.9 - ACUTE BRONCHITIS, UNSPECIFIED Status: Acute Plan: On bronchodilators. (2) Decompensated hepatic cirrhosis Code(s): K72.90 - HEPATIC FAILURE, UNSPECIFIED WITHOUT COMA Status: Acute Plan: Milky peritoneal fluid. ?chylomicrn. f/u pritoneal fluid triglycerides.. (3) HTN (hypertension) Code(s): I10 - ESSENTIAL (PRIMARY) HYPERTENSION Status: Acute Plan: controlled. - Plan Continue current management. f/u peritoneal fluid studies.
[2019-02-07] MEDS: Ipratropium Bromide 2.5 ml Neb NEB SCH ×3 (14:06→22:05)
[2019-02-07] MEDS: Enoxaparin Sodium 40 MG/0.4 ML SYRINGE SC SCH ×2 (15:40→19:46)
--- NOTE | 2019-02-07 17:20 | PDOC.EVN ---
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
[2019-02-07] MEDS: Budesonide 0.5 MG/2 ML NEB INH SCH (18:53)
[2019-02-07] MEDS: Venlafaxine XR 37.5 MG CAP PO SCH (19:46)
[2019-02-07] MEDS: Vancomycin HCl 1.25 GM in Sodium Chloride 0.9% 250 ML 250 ML IVPB SCH (19:46)
[2019-02-08] MEDS: Ipratropium Bromide 2.5 ml Neb NEB SCH ×6 (03:45→22:24)
[2019-02-08 05:55] LABS: Cardiac Risk 3.3 (Less than 4.5)
[2019-02-08] MEDS: Budesonide 0.5 MG/2 ML NEB INH SCH ×2 (07:35→18:48)
[2019-02-08] MEDS: Enoxaparin Sodium 40 MG/0.4 ML SYRINGE SC SCH ×2 (08:52→20:17)
[2019-02-08] MEDS: Spironolactone 25 MG TAB PO SCH (08:53)
[2019-02-08] MEDS: Propranolol HCl 20 MG TAB PO SCH (08:53)
[2019-02-08] MEDS: Furosemide 20 MG TAB PO SCH (08:53)
[2019-02-08] MEDS: Levothyroxine 150 MCG TAB PO SCH (08:53)
--- NOTE | 2019-02-08 12:13 | PDOC.HOSPP ---
- Subjective Encounter Date: 02/08/19 Encounter Time: 11:00 Subjective: Some abdominal discomfort.. - Objective Vital Signs & Weight: Vital Signs (12 hours) Temp Pulse Resp BP Pulse Ox 02/08/19 11:58 98.4 F 75 20 113/72 97 02/08/19 10:52 87 14 95 02/08/19 07:37 98 02/08/19 07:36 87 16 98 02/08/19 07:35 87 16 98 02/08/19 07:21 98.5 F 85 20 122/73 7 L 02/08/19 04:06 98.3 F 94 20 123/79 97 Weight Admit Weight 187 lb 1.6 oz Weight 187 lb 1.6 oz I&O: 02/07/19 02/08/19 02/09/19 06:59 06:59 06:59 Intake Total 870 620 Balance 870 620 Result Diagrams: 02/06/19 10:31 02/06/19 10:31 Hospitalist ROS - Medication Medications: Active Medications Generic Name Dose Route Start Last Admin Trade Name Freq PRN Reason Stop Dose Admin Budesonide 0.5 mg 02/07/19 18:30 02/08/19 07:35 Pulmicort Neb Solution INH 0.5 mg BID-RT PATSY Administration Enoxaparin Sodium 40 mg 02/06/19 21:00 02/08/19 08:52 Lovenox SC 40 mg 0900,2100 PATSY Administration Furosemide 20 mg 02/08/19 09:00 02/08/19 08:53 Lasix PO 20 mg DAILY PATSY Administration Vancomycin HCl 1.25 gm/ Sodium 250 mls @ 250 mls/hr 02/07/19 21:00 02/07/19 19:46 Chloride IVPB 250 mls 2100 PATSY Administration Levofloxacin 500 mg/ Device 100 mls @ 100 mls/hr 02/06/19 23:00 02/07/19 22: 37 IVPB 100 mls 2300 PATSY Administration Ipratropium [place] 2.5 ml 02/07/19 14:30 02/08/19 10:52 Atrovent NEB 2.5 ml [id number] PATSY Administration Lactulose 10 gm 02/08/19 09:00 02/08/19 08:52 Lactulose PO 10 gm DAILY PATSY Administration Levothyroxine Sodium 150 mcg 02/08/19 09:00 02/08/19 08:53 Synthroid PO 150 mcg DAILY PATSY Administration Propranolol HCl 20 mg 02/08/19 09:00 02/08/19 08:53 Inderal PO 20 mg DAILY PATSY Administration Spironolactone 25 mg 02/08/19 09:00 02/08/19 08:53 Aldactone PO 25 mg DAILY PATSY Administration Venlafaxine HCl 37.5 mg 02/07/19 21:00 02/07/19 19:46 Effexor Xr PO 37.5 mg HS PATSY Administration - Exam General Appearance: NAD Neck: no JVD Heart: RRR Respiratory: CTAB Gastrointestinal: soft (+Shifting dullness.) Hosp A/P (1) COPD (chronic obstructive pulmonary disease) with acute bronchitis Code(s): J44.0 - CHR OBSTRUCTIVE PULMON DISEASE WITH (ACUTE) LOWER RESP INFCT; J20.9 - ACUTE BRONCHITIS, UNSPECIFIED Status: Acute (2) Decompensated hepatic cirrhosis Code(s): K72.90 - HEPATIC FAILURE, UNSPECIFIED WITHOUT COMA Status: Acute (3) HTN (hypertension) Code(s): I10 - ESSENTIAL (PRIMARY) HYPERTENSION Status: Acute (4) Chylous ascites Code(s): I89.8 - OTH NONINFECTIVE DISORDERS OF LYMPHATIC VESSELS AND NODES Status: Acute (5) Chylous ascites Code(s): I89.8 - OTH NONINFECTIVE DISORDERS OF LYMPHATIC VESSELS AND NODES Status: Acute - Plan 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 Oncology consulted to exclude malignancy... f/u ascitis culture, pathology..
[2019-02-08] MEDS ORDERED: Iopamidol-370 76% 500 ML 1 ML ONE (12:35)
--- NOTE | 2019-02-08 17:00 | CT ---
CT abdomen and pelvis with IV and oral contrast HISTORY: Abdomen pain. Ascites. FINDINGS: Old left lower posterior rib fractures. Large amount of free fluid is present throughout th e abdomen and pelvis. Liver remains small, heterogeneous, with a nodular contour. Spleen measures up to 12.2 cm. Varices evident within the left side of the abdomen. No evidence of bowel obstruction. Calcification throughout the arterial structures. Diverticula of th e colon without adjacent inflammation. Heterogeneous fluid density associated with the expanded musculature of the lateral aspect of the rig ht abdominal wall. Superficial to this is a large ill-defined area of fluid and stranding within the subcutaneous fat. No enlarged lymph nodes are evident within the abdomen or pelvis. Ligation clips associated with each adnexa. Ovaries are atrophied in a 68-year-old and not well delin eated on this exam. Prominent degenerative changes of the lumbar spine. There is near complete compression of the T11 [place] tebral body which is sclerotic. Acute kyphotic angulation at this level with partial slippage of the facets. There is minimal compression and sclerosis associated with the T8 vertebral body. IMPRESSION: Cirrhosis with a large amount of ascites and varices. Large amount of ascites. No evidence of abdominal adenopathy. Ovaries atrophied. Atherosclerosis. Large fluid density abnormality associated with the expanded right lateral abdominal musculature with extensive overlying stranding of the subcutaneous fat. This may represent a hematoma of the abdominal wall with overlying contusion or component of hematoma. Chronic compression of the T8 and T11 vertebral bodies with acute kyphotic angulation and facet slipp age at the T11 level.
[2019-02-08] MEDS: Venlafaxine XR 37.5 MG CAP PO SCH (20:17)
[2019-02-08 20:37] LABS: Vancomycin, Trough 9.8 ug/mL
[2019-02-08] MEDS: Vancomycin HCl 1.25 GM in Sodium Chloride 0.9% 250 ML 250 ML IVPB SCH (21:18)
[2019-02-08] MEDS: Vancomycin HCl 750 MG in Sodium Chloride 0.9% 250 ML 250 ML IVPB SCH (21:26)
[2019-02-08] MEDS ORDERED: Vancomycin HCl 750 MG in Sodium Chloride 0.9% 250 ML 250 ML IVPB SCH (22:00)
[2019-02-09] MEDS: Ipratropium Bromide 2.5 ml Neb NEB SCH ×6 (02:19→22:10)
[2019-02-09] MEDS: Budesonide 0.5 MG/2 ML NEB INH SCH ×2 (08:08→18:41)
[2019-02-09] MEDS: Enoxaparin Sodium 40 MG/0.4 ML SYRINGE SC SCH ×2 (08:39→20:21)
[2019-02-09] MEDS: Furosemide 20 MG TAB PO SCH (08:41)
[2019-02-09] MEDS: Propranolol HCl 20 MG TAB PO SCH (08:41)
[2019-02-09] MEDS: Spironolactone 25 MG TAB PO SCH (08:41)
[2019-02-09] MEDS: Levothyroxine 150 MCG TAB PO SCH (08:41)
[2019-02-09] MEDS: Vancomycin HCl 750 MG in Sodium Chloride 0.9% 250 ML 250 ML IVPB SCH ×2 (14:12→15:19)
--- NOTE | 2019-02-09 17:26 | CON ---
DATE OF CONSULTATION: 02/09/2019 REQUESTING PHYSICIAN: Mendy Trevino MD REASON FOR CONSULTATION: Cirrhosis with ascites. HISTORY OF PRESENT ILLNESS: Zayda Busch is a 68-year-old woman, who recently moved to the [facility] to live with her daughter. Previously, she had been in a snf facility in [place]. Ms. Busch has a history of COPD, hypothyroidism, nephrolithiasis, status post surgical removal of the kidney stone. She also gives a history of cirrhosis. This was evidently diagnosed at the time of the cholecystectomy about 4 years ago. The patient cannot recall ever having undergone EGD or liver biopsy. She recalls that at one point she was hospitalized with altered mental status. Her outpatient medications include lactulose as well as propranolol, so I assume that she has a prior diagnosis of hepatic encephalopathy and perhaps esophageal varices. The patient relates that she never really had any problems with fluid retention until June or earlier this year, at which time she reports having been hospitalized in [place] with paracentesis performed at that time. The patient has been on diuretics since then. She says she has not required any paracentesis from then until late January. In the interim, she says that she had a lot of medication changes in [place], but then she was recently hospitalized here a couple of weeks ago with ascites causing shortness of breath and hypoxia. She had 4 L paracentesis on that admission and was discharged on Lasix 20 mg daily and spironolactone 25 mg daily. She reports that fairly rapidly over the past 2 weeks since then her abdominal distention returned. She had progressive shortness of breath and so she presented to the hospital and was admitted again 3 days ago. She had 8 L paracentesis upon admission at this time. Fluid studies demonstrated an elevated triglyceride level, but no evidence for SBP. The patient reports that she feels her abdomen is already distending again. She has been kept on a relatively low dose of diuretics this admission. Current oxygen saturations are good on 2L nasal cannula. She has no other complaints really. There is no nausea or vomiting. No significant abdominal pain aside just from the discomfort of distention. She finds it difficult to get up and move around. REVIEW OF SYSTEMS: Full review of systems including constitutional, head, eyes, ears, nose, throat, GI, , cardiovascular, respiratory, musculoskeletal, neurologic systems is negative except as noted in the HPI. PAST MEDICAL HISTORY: 1. COPD. 2. Hypertension. 3. Cholecystectomy. 4. Cirrhosis, unknown etiology, diagnosed about 4 years ago per the patient. 5. Chronic ascites. 6. Nephrolithiasis. 7. Hypothyroidism. 8. IBS. 9. Depression/anxiety. 10. Hernia surgery. FAMILY HISTORY: Negative for liver disease. SOCIAL HISTORY: No smoking or alcohol history. The patient was recently in a snf facility, now living with her daughter in [place]. ALLERGIES: ALBUTEROL, ETANERCEPT, AND PENICILLIN. OUTPATIENT MEDICATIONS: 1. Trazodone 50 mg nightly. 2. Mucinex 600 mg every 12 hours. 3. Venlafaxine 37.5 mg nightly. 4. Spironolactone 25 mg daily. 5. Lasix 20 mg daily. 6. Propranolol 20 mg daily. 7. Levothyroxine 150 mcg daily. 8. Lactulose 10 g daily. 9. Tylenol p.r.n. INPATIENT MEDICATIONS: 1. Pulmicort nebulizer b.i.d. 2. Lasix 20 mg daily. 3. Spironolactone 25 mg daily. 4. Lactulose 10 g daily. 5. Atrovent. 6. Levofloxacin IV. 7. Vancomycin IV. 8. Propranolol 20 mg daily. 9. Venlafaxine 37.5 mg p.o. nightly. PHYSICAL EXAMINATION: VITAL SIGNS: Temperature 97.9, pulse 82, blood pressure 128/72, and 94% oxygen saturation on 2L nasal cannula. GENERAL: A 68-year-old woman, lying in bed comfortably, in no distress. SKIN: No jaundice. No rashes were palpable. EYES: No scleral icterus. Extraocular movements intact. ENT: Mucous membranes moist. No oral lesions. She has nasal cannula in place. HEART: Regular rate and rhythm. LUNGS: Clear to auscultation bilaterally. LYMPH: No submandibular or supraclavicular lymphadenopathy. NECK: Thyroid, nontender to palpation. ABDOMEN: Moderate distention from ascites. Positive fluid wave, dullness to percussion in the flanks. The abdomen is not tense. There is evidence of resolving ecchymosis to the right side of abdomen at recent paracentesis site. Nontender. Bowel sounds are present. EXTREMITIES: No peripheral edema. NEUROLOGIC: Cranial nerves II through XII intact bilaterally. No asterixis. VESSELS: Radial pulses 2+ bilaterally. LABORATORY STUDIES: WBC 8.1, hemoglobin 12.5, and platelets 182. Sodium 138, potassium 4.1, BUN 12, creatinine 0.94, and glucose 162. Total bilirubin 3.9, alkaline phosphatase 75, AST 49, ALT 16, and albumin 2.4. TSH is 43. INR 1.6. Lipase 17. AFP 1.1. Troponin negative. Paracentesis fluid study showed 92 wbc's, only 28% PMNs. Triglycerides are 259. I do not see that a fluid albumin level was performed. IMAGING STUDIES: Abdominal ultrasound from 01/26/2019 showed cirrhotic liver configuration with ascites. Admission CT abdomen and pelvis demonstrated a large amount of ascites, small nodular liver, abdominal varices in the left side as well as a right abdominal wall hematoma. CT chest showed enlarged bilateral axillary lymph nodes. No evidence of pulmonary embolus or pleural effusion. ASSESSMENT AND PLAN: A 68-year-old woman presenting with recent decompensation of cirrhosis with ascites. 1. Cirrhosis, unknown etiology. 2. Ascites, recent decompensation over the past month. The patient carries a diagnosis of cirrhosis, but it is unclear what the etiology is. We will get some lab workup with morning labs tomorrow. I will further explore this, including viral hepatitis serologies, autoimmune markers, ceruloplasmin, iron studies. MELD score is 17. She does have a mild coagulopathy, evidence of synthetic dysfunction, but her primary decompensation right now is the ascites. Thankfully, it looks like her renal function is satisfactory and we certainly have room to go up on the diuretics. I will increase this to Lasix 40 mg daily and spironolactone 100 mg daily. I discussed the importance of a low-sodium diet with the patient as well as her daughter. Hopefully, with adherence to low-sodium diet and increasing diuretics as much as we can, we will be able to get control of the ascites and avoid frequent paracentesis going forward. Otherwise, continue with the lactulose and propranolol. Thank you for the consultation. Please call anytime with questions or concerns. Job ID: [id number]
--- NOTE | 2019-02-09 19:00 | PDOC.HOSPP ---
- Subjective Encounter Date: 02/09/19 Encounter Time: 17:00 Subjective: The patient is doing well, states her abdomen is started to get more distended, mostly on the right side. She states it is getting difficult to breathe. Had paracentesis x 2, one on Thanksgiving with 8L removed, another with 4L removed. No shortness of breath - Objective Vital Signs & Weight: Vital Signs (12 hours) Temp Pulse Resp BP Pulse Ox 02/09/19 18:41 76 16 98 02/09/19 14:21 71 16 98 02/09/19 10:24 82 20 94 L 02/09/19 08:17 97.9 F 71 20 128/72 100 02/09/19 08:08 83 20 95 02/09/19 08:06 83 20 95 Weight Admit Weight 187 lb 1.6 oz Weight 187 lb 1.6 oz I&O: 02/08/19 02/09/19 02/10/19 06:59 06:59 06:59 Intake Total 620 1100 Balance 620 1100 Result Diagrams: 02/06/19 10:31 02/06/19 10:31 Hospitalist ROS - Review of Systems Constitutional: denies: fever, chills - Medication Medications: Active Medications Generic Name Dose Route Start Last Admin Trade Name Freq PRN Reason Stop Dose Admin Budesonide 0.5 mg 02/07/19 18:30 02/09/19 18:41 Pulmicort Neb Solution INH 0.5 mg BID-RT PATSY Administration Enoxaparin Sodium 40 mg 02/06/19 21:00 02/09/19 08:39 Lovenox SC Not Given 0900,2100 PATSY Levofloxacin 500 mg/ Device 100 mls @ 100 mls/hr 02/06/19 23:00 02/09/19 00: 21 IVPB 100 mls 2300 PATSY Administration Vancomycin HCl 750 mg/ Sodium 250 mls @ 250 mls/hr 02/09/19 14:00 02/09/19 14 :12 Chloride IVPB 250 mls 0200,1400 PATSY Administration Ipratropium [place] 2.5 ml 02/07/19 14:30 02/09/19 18:41 Atrovent NEB 2.5 ml [id number] PATSY Administration Lactulose 10 gm 02/08/19 09:00 02/09/19 08:40 Lactulose PO 10 gm DAILY PATSY Administration Levothyroxine Sodium 150 mcg 02/08/19 09:00 02/09/19 08:41 Synthroid PO 150 mcg DAILY PATSY Administration Propranolol HCl 20 mg 02/08/19 09:00 02/09/19 08:41 Inderal PO 20 mg DAILY PATSY Administration Venlafaxine HCl 37.5 mg 02/07/19 21:00 02/08/19 20:17 Effexor Xr PO 37.5 mg HS PATSY Administration - Exam General Appearance: NAD, awake alert Eye: PERRL, anicteric sclera ENT: normocephalic atraumatic, no oropharyngeal lesions Neck: supple, symmetric, no JVD, no thyromegaly Heart: RRR, no murmur, no gallops, no rubs Respiratory: CTAB, no wheezes, no rales, no ronchi Gastrointestinal: soft, non-distended Gastrointestinal - other findings: abdomen distended more swollen on right side. Maculopapular rash Extremities: no cyanosis, no clubbing, no edema, clubbing Skin: normal turgor, no lesions, no rashes Neurological: cranial nerve grossly intact, normal sensation to touch, no focal deficits, no new deficit Musculoskeletal: normal tone, normal strength, no muscle wasting Hosp A/P - Plan CT abdomen: cirrhosis with large amount of ascites and varices. Compression of T8 and T11 CTA thorax: bilaterally enlarged axillary lymph nodes This is a 68 year old female patient here with chylous ascites Decompensated cirrhosis - s/p paracentesis with elevated triglyceride. No malignancy evident. No evidence of SBP. Unclear cause, send hepatitis panel, ceruloplasmin, autoimmune workup. GI on boad - was on vanc and levaquin empiricallym\, but probably could be d/c - on lasix 40 mg and spironolactone 100 mg per patient - will order paracentesis for tomorrow with fluid LDH, protein, glucose, triglyceride. If not enough fluid may be from hematoma Right lateral hematoma - trend CBC Depression - continue effexor, trazodone Hyperglycemia - glucose 162, check A1C in morning Code status: full code
[2019-02-09] MEDS: Venlafaxine XR 37.5 MG CAP PO SCH (20:21)
[2019-02-10] MEDS: traMADol HCl 50 MG TAB PO PRN ×4 (02:05→20:50)
[2019-02-10] MEDS: Vancomycin HCl 750 MG in Sodium Chloride 0.9% 250 ML 250 ML IVPB SCH ×2 (02:06→15:54)
[2019-02-10] MEDS: Ipratropium Bromide 2.5 ml Neb NEB SCH ×6 (02:28→22:10)
[2019-02-10 06:15] LABS: Mean Corpuscular HGB CONC 32.6 g/dL (32.0-36.0); Mean Corpuscular Hemoglobin 34.1 pg (27.0-31.0); Mean Platelet Volume 7.3 fL (7.4-10.4); Platelet Count 193 thou/uL (130-400); RBC Distribution Width 14.9 % (11.5-14.5); Red Blood Cell (RBC) Count 3.24 mill/uL (4.20-5.40); White Blood Cell (WBC) Count 8.3 thou/uL (4.8-10.8)
[2019-02-10 06:20] LABS: INR-International Normal Ratio 1.4; Prothrombin Time 17.4 SEC (12.0-14.7)
[2019-02-10] MEDS: Budesonide 0.5 MG/2 ML NEB INH SCH ×2 (06:50→18:44)
[2019-02-10 07:00] LABS: ALT (SGPT) 11 U/L (8-55); AST (SGOT) 25 U/L (5-34); Albumin 1.9 g/dL (3.4-4.8); Alkaline Phosphatase 79 U/L (40-110); Bilirubin, Direct 0.8 mg/dL (0.1-0.3); Bilirubin, Total 1.4 mg/dL (0.2-1.2); Protein, Total 6.2 g/dL (6.0-8.3)
[2019-02-10 07:07] LABS: ALT (SGPT) 11 U/L (8-55); AST (SGOT) 25 U/L (5-34); Albumin 1.8 g/dL (3.4-4.8); Alkaline Phosphatase 79 U/L (40-110); Anion Gap 6 mmol/L (10-20); BUN (Urea Nitrogen) 9 mg/dL (9.8-20.1); Bilirubin, Total 1.4 mg/dL (0.2-1.2); Calc. Creatinine Clearance 81 mL/min (70-130); Calcium 7.7 mg/dL (7.8-10.44); Carbon Dioxide 30 mmol/L (23-31); Chloride 99 mmol/L (98-107); Estimated GFR-MDRD 64; Globulin 4.4 g/dL (2.4-3.5); Glucose 87 mg/dL (80-115); Iron 63 ug/dL (50-170); Iron Binding Capacity, Total 123 mcg/dL (265-497); Potassium 3.7 mmol/L (3.5-5.1); Protein, Total 6.2 g/dL (6.0-8.3); Sodium 131 mmol/L (136-145)
[2019-02-10 08:26] LABS: HBCM Index 0.07 S/CO (0-0.79); HBSAg Index 0.16 S/CO (0-0.99); Hep A IgM AB Non-Reactive (NonReactive); Hep A IgM S/CO 0.16 S/CO (0-0.79); Hep B Surf Ag Non-Reactive S/CO (NonReactive); Hepatitis B Core IgM Abs Non-Reactive (NonReactive)
[2019-02-10 08:31] LABS: Hep C IgG Ab Reflex HepC Qnt (NonReactive); Hep C Index 1.39 S/CO (0-0.79)
[2019-02-10] MEDS: Propranolol HCl 20 MG TAB PO SCH (08:42)
[2019-02-10] MEDS: Furosemide 40 MG TAB PO SCH (08:42)
[2019-02-10] MEDS: Levothyroxine 150 MCG TAB PO SCH (08:42)
[2019-02-10] MEDS: Spironolactone 100 MG TAB PO SCH (08:42)
[2019-02-10] MEDS: Enoxaparin Sodium 40 MG/0.4 ML SYRINGE SC SCH ×2 (08:42→20:51)
[2019-02-10] MEDS ORDERED: Sodium Bicarbonate 2.5 MEQ/5 ML VIAL ONE (11:11)
[2019-02-10 11:19] LABS: ANA Symphony (Qualitative) Negative (Negative); ANA Symphony (Quantitative) 0.4 Ratio (< 0.7 Negative); EliA Vaculitis New Method **** NEW METHOD ****; Mitochondrial Ab 1.4 U/mL (<4 Negative); dsDNA IgG Antibody 1.5 IU/mL (<10 Negative)
[2019-02-10 13:10] LABS: A/G Ratio 0.5 (0.7-1.7); Alpha 1 0.2 g/dL (0.0-0.4); Alpha 2 0.3 g/dL (0.4-1.0); Beta 0.7 g/dL (0.7-1.3); Globulin, Total 4.1 g/dL (2.2-3.9); M-Spike Not Observed g/dL (Not Observed); Protein Electrophoresis Intrp Note: (.)
[2019-02-10 13:33] LABS: RBC Count-Automated (BF) 343 /cumm; WBC/Nucleated-Auto (BF) 76 uL
--- NOTE | 2019-02-10 14:05 | ULT ---
Exam: Ultrasound guided paracentesis HISTORY: Ascites COMPARISON: 01/28/2019 FINDINGS: Successful ultrasound-guided paracentesis. Total of 3200 mL of yellow color ascites was asp irated. TECHNIQUE: Consent obtained reformatory ultrasound-guided paracentesis. Right lower quadrant was deem ed appropriate. Skin was prepped and draped in a sterile fashion. 1% lidocaine, buffered with sodium bicarbonate was used for local anesthesia. Under ultrasound guidance, a 5 Turkish 7 cm Yueh cat heter is advanced in the peritoneal space. A total of 3200 mL of yellow color ascites was aspirated. No immediate or postprocedural complications IMPRESSION: Successful ultrasound-guided paracentesis.
[2019-02-10 14:13] LABS: BF Color Yellow; Body Fluid Source Paracentesis Fluid; Clarity Cloudy/Turbid (Clear); Tube # EDTA
[2019-02-10 14:21] LABS: BF Segmented Neutrophils 10 %; Cell Count Non Hematic 47 %; Lymphocytes 43 %
--- NOTE | 2019-02-10 14:48 | PRG ---
DATE OF SERVICE: 02/10/2019 SUBJECTIVE: Ms. Busch underwent further paracentesis 3.2 L of fluid removed earlier today. She says she is feeling a lot better. She is breathing easy at the moment. She is tolerating her low-sodium diet. No other complaints. OBJECTIVE: VITAL SIGNS: Temperature 98.7, pulse 78, blood pressure 99/59, and 95% oxygen saturation on 2 L nasal cannula. GENERAL: No acute distress. HEART: Regular rate and rhythm. LUNGS: Clear to auscultation bilaterally. ABDOMEN: Less distended, soft, nontender to palpation throughout. EXTREMITIES: No peripheral edema. LABORATORY STUDIES: WBC 8.3, hemoglobin 11.0, and platelets 193. INR 1.4. Sodium 131, potassium 3.7, BUN 9, creatinine 0.87, total bilirubin is down to 1.4, direct bilirubin 0.8, alkaline phosphatase 79, AST 25, ALT 11, albumin is 1.9. Serum total protein is 6.2. Her SPEP did not demonstrate any M spike. AFP is normal at 1.1. Ascites fluid studies from earlier today show amylase less than 5, LDH less than 25. Further studies from today are pending. VIVIANA is negative. AMA is negative. ASMA is pending. Hepatitis A IgM is negative. Hepatitis B surface antigen is negative. Hepatitis C antibody is positive. Quantitative RNA is pending. ASSESSMENT AND PLAN: 1. Cirrhosis. 2. Ascites. 3. Positive hepatitis C antibody. The patient is now status post removal of 7.2 L of fluid this week after 8 L of fluid removed a couple of weeks ago. We have gone up on her diuretics to Lasix 40 mg daily and spironolactone 100 mg daily. Renal function is good. Trend the CMP tomorrow. From my perspective, if renal function is stable and the patient is doing well from a respiratory standpoint, the patient could potentially be discharged from the hospital on current diuretic doses. It is possible we will need to make further dose adjustments upward, but this could be done on an outpatient basis. We will have her follow up in the [facility] in the next couple of weeks. Hepatitis C antibody is positive, waiting on confirmatory RNA. If this is also positive, then we could consider oral antiviral treatment for the hepatitis C once her ascites is under better control. It is going to be important that she adhere to a low-sodium diet going forward. Job ID: [id number]
[2019-02-10 14:55] LABS: Vancomycin, Trough 15.4 ug/mL
--- NOTE | 2019-02-10 18:09 | PDOC.HOSPP ---
- Subjective Encounter Date: 02/10/19 Encounter Time: 18:06 Subjective: The patient had a paracentesis today. She got 3.2L removed today. She feels much more comfortable. - Objective Vital Signs & Weight: Vital Signs (12 hours) Temp Pulse Resp BP Pulse Ox 02/10/19 14:19 73 20 96 02/10/19 10:52 78 20 95 02/10/19 08:00 98.7 F 76 18 99/59 L 95 02/10/19 06:50 76 16 96 02/10/19 06:48 76 16 96 Weight Admit Weight 187 lb 1.6 oz Weight 187 lb 1.6 oz I&O: 02/09/19 02/10/19 02/11/19 06:59 06:59 06:59 Intake Total 1100 1150 Balance 1100 1150 Result Diagrams: 02/10/19 05:50 02/10/19 05:50 Hospitalist ROS - Review of Systems Constitutional: denies: fever, chills - Medication Medications: Active Medications Generic Name Dose Route Start Last Admin Trade Name Jose Aq PRN Reason Stop Dose Admin Budesonide 0.5 mg 02/07/19 18:30 02/10/19 06:50 Pulmicort Neb Solution INH 0.5 mg BID-RT PATSY Administration Enoxaparin Sodium 40 mg 02/06/19 21:00 02/10/19 08:42 Lovenox SC Not Given 0900,2100 PATSY Furosemide 40 mg 02/10/19 07:30 02/10/19 08:42 Lasix PO 40 mg DAILY-AC PATSY Administration Ipratropium [place] 2.5 ml 02/07/19 14:30 02/10/19 14:19 Atrovent NEB 2.5 ml [id number] PATSY Administration Lactulose 10 gm 02/08/19 09:00 02/10/19 08:42 Lactulose PO 10 gm DAILY PATSY Administration Levothyroxine Sodium 150 mcg 02/08/19 09:00 02/10/19 08:42 Synthroid PO 150 mcg DAILY PATSY Administration Propranolol HCl 20 mg 02/08/19 09:00 02/10/19 08:42 Inderal PO 20 mg DAILY PATSY Administration Spironolactone 100 mg 02/10/19 08:00 02/10/19 08:42 Aldactone PO 100 mg QAM-WM PATSY Administration Tramadol HCl 50 mg 02/10/19 01:56 02/10/19 14:33 Ultram PO 50 mg Q6H PRN Administration Moderate Pain (4-6) Venlafaxine HCl 37.5 mg 02/07/19 21:00 02/09/19 20:21 Effexor Xr PO 37.5 mg HS PATSY Administration - Exam General Appearance: NAD, awake alert Eye: PERRL, anicteric sclera ENT: normocephalic atraumatic, no oropharyngeal lesions Neck: supple, symmetric, no JVD, no thyromegaly Heart: RRR, no murmur, no gallops, no rubs Respiratory: CTAB, no wheezes, no rales, no ronchi Gastrointestinal: soft, non-tender, non-distended, normal bowel sounds, no palpable masses Extremities: no cyanosis, no clubbing, no edema Skin: normal turgor, no lesions, no rashes Neurological: cranial nerve grossly intact, normal sensation to touch, no focal deficits, no new deficit Hosp A/P - Plan CT abdomen: cirrhosis with large amount of ascites and varices. 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 No malignancy evident. No evidence of SBP. Unclear cause, send hepatitis panel, ceruloplasmin, autoimmune workup. GI on board. Repeat paracentesis today, send fluid LDH, will check fluid albumin to evaluate SAAG gradient - d/c antibiotics - on lasix 40 mg and spironolactone 100 mg per patient - anti mitochondrial negative, anti DS DNA negative Right lateral hematoma - trend CBC Depression - continue effexor, trazodone Hyperglycemia - glucose 162, check A1C in morning Code status: full code
[2019-02-10] MEDS: Venlafaxine XR 37.5 MG CAP PO SCH (20:50)
[2019-02-11] MEDS: Ipratropium Bromide 2.5 ml Neb NEB SCH ×6 (01:57→22:16)
[2019-02-11] MEDS: traMADol HCl 50 MG TAB PO PRN ×2 (06:21→20:11)
[2019-02-11] MEDS: Budesonide 0.5 MG/2 ML NEB INH SCH ×2 (06:49→18:37)
[2019-02-11 07:13] LABS: ALT (SGPT) 12 U/L (8-55); AST (SGOT) 28 U/L (5-34); Albumin 1.7 g/dL (3.4-4.8); Alkaline Phosphatase 66 U/L (40-110); Anion Gap 8 mmol/L (10-20); BUN (Urea Nitrogen) 9 mg/dL (9.8-20.1); Bilirubin, Total 1.7 mg/dL (0.2-1.2); Calc. Creatinine Clearance 90 mL/min (70-130); Calcium 7.7 mg/dL (7.8-10.44); Carbon Dioxide 28 mmol/L (23-31); Chloride 102 mmol/L (98-107); Estimated GFR-MDRD 73; Globulin 4.6 g/dL (2.4-3.5); Glucose 78 mg/dL (80-115); Protein, Total 6.3 g/dL (6.0-8.3); Sodium 134 mmol/L (136-145)
[2019-02-11 07:40] LABS: Hemoglobin 11.3 g/dL (12.0-16.0); Mean Corpuscular HGB CONC 32.5 g/dL (32.0-36.0); Mean Corpuscular Hemoglobin 34.5 pg (27.0-31.0); Mean Platelet Volume 7.4 fL (7.4-10.4); Platelet Count 160 thou/uL (130-400); RBC Distribution Width 15.1 % (11.5-14.5); Red Blood Cell (RBC) Count 3.28 mill/uL (4.20-5.40); White Blood Cell (WBC) Count 6.1 thou/uL (4.8-10.8)
[2019-02-11] MEDS: Levothyroxine 150 MCG TAB PO SCH (08:09)
[2019-02-11] MEDS: Propranolol HCl 20 MG TAB PO SCH (08:09)
[2019-02-11] MEDS: Furosemide 40 MG TAB PO SCH (08:10)
[2019-02-11] MEDS: Spironolactone 100 MG TAB PO SCH (08:10)
[2019-02-11] MEDS: Enoxaparin Sodium 40 MG/0.4 ML SYRINGE SC SCH ×2 (08:10→20:11)
[2019-02-11] MEDS: Folic Acid 1 MG TAB PO SCH (09:01)
[2019-02-11 12:09] LABS: Albumin, Fluid Less than 0.2 g/dL (Not Estab.)
--- NOTE | 2019-02-11 17:58 | PRG ---
DATE OF SERVICE: 02/11/2019 SUBJECTIVE: Ms. Busch is feeling fine. She has a little bit of residual right abdominal tenderness. No significant increase in distention. She is breathing okay, doing well off oxygen this evening. OBJECTIVE: VITAL SIGNS: Temperature 98.0, pulse 75, blood pressure 99/64, and 96% oxygen saturation on room air. GENERAL: No acute distress. HEART: Regular rate and rhythm. LUNGS: Clear to auscultation bilaterally. ABDOMEN: Mild distention. Soft. Some tenderness to palpation in the right side, but no guarding or rebound tenderness. EXTREMITIES: No peripheral edema. LABORATORY STUDIES: WBC 6.1, hemoglobin 11.3, MCV 106.0, platelets 160. INR is 1.4. Sodium 134, potassium 4.0, BUN 9, creatinine 0.78, calcium 7.7, total bilirubin 1.7, alkaline phosphatase 66. AST 28, ALT 12, albumin 1.7. VIVIANA negative. AMA negative. ASMA is pending. Hepatitis C antibody positive. Quantitative RNA viral load is pending. Serum ceruloplasmin is 17.0, folate 5.3, and vitamin B12 of 968. ASSESSMENT AND PLAN: 1. Cirrhosis, of likely secondary to hepatitis C. We are awaiting confirmatory HCV RNA titer. If this is positive, we will consider antiviral treatment course on an outpatient basis once her ascites is better controlled. 2. Ascites. There is no evidence of spontaneous bacterial peritonitis. We have increased her diuretics to Lasix 40 mg daily and spironolactone 100 mg daily. Renal function is stable today. I think the patient could be discharged on current diuretic doses. Continue to follow a low-sodium diet. We will see her back in clinic in the next 2 to 3 weeks, recheck renal function, just diuretics as necessary. 3. Folic acid deficiency. We would recommend daily multivitamin as well as folic acid 1 mg daily supplementation. 4. Low serum ceruloplasmin. Ceruloplasmin is marginally low at 17. Hepatitis C is a much more likely cause of her cirrhosis than Cale's disease. We will plan to just recheck ceruloplasmin level on an outpatient basis. GI will sign off, but please call back anytime with questions or concerns. Job ID: [id number] [facility]
[2019-02-11] MEDS: Venlafaxine XR 37.5 MG CAP PO SCH (20:11)
--- NOTE | 2019-02-11 20:29 | PDOC.HOSPP ---
- Subjective Encounter Date: 02/11/19 Encounter Time: 20:28 Subjective: The patient is doing well from paracentesis, feels more comfortable, less fluid than before. She has minimal edema. Hepatitis C viral RNA pending. Still has mild hematoma in her abdomen. Cleared from GI standpoint - Objective Vital Signs & Weight: Vital Signs (12 hours) Temp Pulse Resp BP Pulse Ox 02/11/19 19:53 98.3 F 80 18 104/68 92 L 02/11/19 18:23 70 16 02/11/19 14:37 75 16 95 02/11/19 10:19 71 14 97 Weight Admit Weight 187 lb 1.6 oz Weight 187 lb 1.6 oz I&O: 02/10/19 02/11/19 02/12/19 06:59 06:59 06:59 Intake Total 1150 400 960 Balance 1150 400 960 Result Diagrams: 02/11/19 07:30 02/11/19 06:28 Hospitalist ROS - Review of Systems Constitutional: denies: fever, chills - Medication Medications: Active Medications Generic Name Dose Route Start Last Admin Trade Name Freq PRN Reason Stop Dose Admin Budesonide 0.5 mg 02/07/19 18:30 02/11/19 18:37 Pulmicort Neb Solution INH 0.5 mg BID-RT PATSY Administration Enoxaparin Sodium 40 mg 02/06/19 21:00 02/11/19 20:11 Lovenox SC 40 mg 0900,2100 PATSY Administration Folic Acid 1 mg 02/11/19 09:00 02/11/19 09:01 Folvite PO 1 mg DAILY PATSY Administration Furosemide 40 mg 02/10/19 07:30 02/11/19 08:10 Lasix PO 40 mg DAILY-AC PATSY Administration Ipratropium [place] 2.5 ml 02/07/19 14:30 02/11/19 18:23 Atrovent NEB 2.5 ml [id number] PATSY Administration Lactulose 10 gm 02/08/19 09:00 02/11/19 08:09 Lactulose PO 10 gm DAILY PATSY Administration Levothyroxine Sodium 150 mcg 02/08/19 09:00 02/11/19 08:09 Synthroid PO 150 mcg DAILY APTSY Administration Propranolol HCl 20 mg 02/08/19 09:00 02/11/19 08:09 Inderal PO 20 mg DAILY PATSY Administration Spironolactone 100 mg 02/10/19 08:00 02/11/19 08:10 Aldactone PO 100 mg QAM-WM PATSY Administration Tramadol HCl 50 mg 02/10/19 01:56 02/11/19 20:11 Ultram PO 50 mg Q6H PRN Administration Moderate Pain (4-6) Venlafaxine HCl 37.5 mg 02/07/19 21:00 02/11/19 20:11 Effexor Xr PO 37.5 mg HS PATSY Administration - Exam General Appearance: NAD, awake alert Eye: PERRL, anicteric sclera ENT: normocephalic atraumatic, no oropharyngeal lesions Neck: supple, symmetric, no JVD, no thyromegaly Heart: RRR, no murmur, no gallops, no rubs Respiratory: CTAB, no wheezes, no rales, no ronchi Gastrointestinal: soft Gastrointestinal - other findings: mild distension in right side of abdomen. Dull to percussion, left tympanic Extremities: no cyanosis, no clubbing, 1+ LE edema Skin: normal turgor, no lesions, no rashes Neurological: cranial nerve grossly intact, normal sensation to touch, no focal deficits, no new deficit Hosp A/P - Plan CT abdomen: cirrhosis with large amount of ascites and varices. 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 No malignancy evident. No evidence of SBP. Unclear cause, send hepatitis panel, ceruloplasmin, autoimmune workup. GI on board. Repeat paracentesis today, send fluid LDH, will check fluid albumin to evaluate SAAG gradient - d/c antibiotics - on lasix 40 mg and spironolactone 100 mgt - anti mitochondrial negative, anti DS DNA negative, VIVIANA negative. Ceruloplasmin low - hep C viral RNA pending Folic acid deficiency anemia - start folate 1 mg daily Elevated IGG - SPEP Pending and UPEP Right lateral hematoma - CBC stable at 11 Depression - continue effexor, trazodone Dispo: possibly d/c in morning Code status: full code
[2019-02-12] MEDS: Ipratropium Bromide 2.5 ml Neb NEB SCH ×4 (02:17→14:12)
[2019-02-12] MEDS: Budesonide 0.5 MG/2 ML NEB INH SCH (07:49)
[2019-02-12] MEDS: traMADol HCl 50 MG TAB PO PRN (09:19)
[2019-02-12] MEDS: Levothyroxine 150 MCG TAB PO SCH (09:20)
[2019-02-12] MEDS: Propranolol HCl 20 MG TAB PO SCH (09:20)
[2019-02-12] MEDS: Folic Acid 1 MG TAB PO SCH (09:20)
[2019-02-12] MEDS: Furosemide 40 MG TAB PO SCH (09:21)
[2019-02-12] MEDS: Enoxaparin Sodium 40 MG/0.4 ML SYRINGE SC SCH (09:21)
[2019-02-12] MEDS: Spironolactone 100 MG TAB PO SCH (09:21)
[2019-02-12 11:46] LABS: Hemoglobin 11.5 g/dL (12.0-16.0); Mean Corpuscular HGB CONC 33.3 g/dL (32.0-36.0); Mean Corpuscular Hemoglobin 34.8 pg (27.0-31.0); Mean Platelet Volume 7.5 fL (7.4-10.4); Platelet Count 174 thou/uL (130-400); RBC Distribution Width 15.1 % (11.5-14.5); Red Blood Cell (RBC) Count 3.29 mill/uL (4.20-5.40); White Blood Cell (WBC) Count 7.1 thou/uL (4.8-10.8)
[2019-02-12 12:25] LABS: ALT (SGPT) 11 U/L (8-55); AST (SGOT) 26 U/L (5-34); Albumin 1.9 g/dL (3.4-4.8); Alkaline Phosphatase 71 U/L (40-110); Anion Gap 6 mmol/L (10-20); BUN (Urea Nitrogen) 12 mg/dL (9.8-20.1); Bilirubin, Total 1.4 mg/dL (0.2-1.2); Calc. Creatinine Clearance 77 mL/min (70-130); Calcium 7.8 mg/dL (7.8-10.44); Carbon Dioxide 33 mmol/L (23-31); Chloride 99 mmol/L (98-107); Estimated GFR-MDRD 61; Globulin 4.6 g/dL (2.4-3.5); Glucose 102 mg/dL (80-115); Potassium 3.6 mmol/L (3.5-5.1); Protein, Total 6.5 g/dL (6.0-8.3); Sodium 134 mmol/L (136-145)
[2019-02-12 14:44] VITALS: BP 105/59; TEMP 98.7
[2019-02-12 16:09] LABS: Hep C PCR-Quant HCV Not Detected IU/mL (.)
--- NOTE | 2019-02-13 07:38 | DIS ---
DATE OF ADMISSION: 02/09/2019 DATE OF DISCHARGE: 02/12/2019 DISCHARGE DIAGNOSES: Decompensated cirrhosis, possibly from hepatitis C, positive anti-smooth muscle antibody, folic acid deficiency anemia, elevated IgG, right lateral abdominal hematoma, depression, hyponatremia. CONSULTATIONS: GI with Dr. Saji Murphy. PROCEDURES: Paracentesis x2. BRIEF HISTORY OF PRESENT ILLNESS: This is a 68-year-old female with a past medical history of cirrhosis for the past 5 years, hypothyroidism, diabetes, IBS, who presented to the emergency room with worsening abdominal distention and shortness of breath for the past 5 days. She was sent by her PCP due to hypoxia in the 80s. The patient was sent to the emergency room for further workup. She reported some shortness of breath from her abdominal distention. She reported that she had a paracentesis done a few weeks prior at an alternative hospital. The patient reported that she was not sure what the cause of her cirrhosis was and never drank alcohol in her life. The patient denied any nausea or vomiting. She was admitted for further workup. HOSPITAL COURSE: Decompensated cirrhosis possibly secondary to hepatitis C: The patient underwent a paracentesis on the with 8 bottles of cloudy fluid removed. She was initially started on IV vancomycin and Levaquin empirically for possible SBP. Her fluid studies however came back negative, so this was eventually discontinued. The patient underwent GI consultation and was started on spironolactone 100 mg and Lasix 40 mg. The patient developed a subcutaneous hematoma from her initial paracentesis. On the , she underwent a repeat paracentesis with 3 L of fluid removed. Cytology was negative for malignancy both times. Her SAAG gradient was 1.7, which is indicative of portal hypertension. Additional workup for the cause of her cirrhosis revealed that she was positive for hepatitis C. Her HCV RNA however came back undetected so she possibly cleared the infection. The patient also was noted to have a low ceruloplasmin level at [address] Murphy felt low suspicion for Cale's disease. Autoimmune workup was positive for an anti-smooth muscle antibody titer of 27; however, VIVIANA, adez-csybfy-aihhuwdh DNA and anti-mitochondrial antibody were negative. She will need a repeat ceruloplasmin level done as an outpatient to consider further workup of Cale disease, however this is less likely. The patient was monitored for an additional 2 days after paracentesis and the ascites did not reaccumulate. She was felt to be stable for discharge and was discharged on spironolactone and Lasix. She was advised to follow up with Dr. Murphy in 2-3 weeks and was told to take a low-sodium diet and wear compression stockings. Elevated IGG level: The patient did have a positive serum IgG of 2955. An SPEP and a UPEP were sent which were still pending at this time. Folic acid deficiency anemia: The patient was noted to have a hemoglobin of 11 with an elevated MCV. Her folate levels came back low at 5.30 and vitamin B12 of 968. She was started on folic acid supplementation. Right lateral hematoma: The patient did have a large expanded right lateral abdominal hematoma where her paracentesis was. She was monitored with serial CBCs and this remained stable. This can be followed up as an outpatient. Compression fracture T11 and T8: This was noted on her CT abdomen which is noted to be chronic. The patient denied any back pain. Left lower posterior rib fractures: The patient denied any complaints of chest pain, however. Varices: This was noted on her CT abdomen. Unable to quantify how large the varices are. After discussion with GI, it was decided that nadolol did not need to be prescribed since there is no evidence of large varices. This can be followed up as an outpatient with Dr. Murphy. Enlarged axillary lymph nodes: The patient was noted to have some enlarged axillary lymph fluids on CTA chest. This should be followed up as an outpatient. Possible pulmonary nodule in the middle lobe: CTA chest noted 1.1 x 1.1 cm bleb in the middle lobe. Consider outpatient followup. The patient denied any chest pain. Hyponatremia: The patient has a sodium of 134. She denies any dizziness or lightheadedness. This can be monitored as an outpatient. DISCHARGE PHYSICAL EXAMINATION: VITAL SIGNS: Temperature 98.7, heart rate 78, respiratory rate 18, O2 saturation 92% on room air, blood pressure 105/59. GENERAL: The patient is obese, in no acute distress. CVS: Regular rate and rhythm with no murmurs, rubs, or gallops. LUNGS: Clear to auscultation bilaterally. ABDOMEN: Positive bowel sounds, soft, nontender. The patient does have some distention on the right side from her hematoma. Her left side is tympanic to percussion. EXTREMITIES: Mild 2+ edema. PERTINENT LABORATORY DATA: CBC 02/12: Shows white blood cell count 7.1, hemoglobin/hematocrit 11.5/34.4, MCV 105, platelet count 174. BMP 02/12: Shows a sodium 134, carbon dioxide 33, bilirubin 1.4. Ceruloplasmin : 17. Vitamin B12: 968. Folate: 5.30. Hepatitis panel: Shows positive hepatitis C antibody, hep C RNA not detected. Serum IgG : elevated at 2955. SPEP and UPEP are pending. VIVIANA : negative. Nrey-vkjdvu-efmuekxw DNA : 1.5. Anti-mitochondrial antibody :1.4. Anti-smooth muscle antibody titer : + 27. Paracentesis of the fluid on 02/10: shows cloudy turbid fluid with 76 white blood cells, 343 rbc's, 10% segmented neutrophils, fluid LDH of less than 25, fluid amylase less than 5, flue triglycerides of 220. PERTINENT IMAGING: CTA chest 02/06: Shows nonspecific enlarged bilateral axillary lymph nodes, cirrhosis with ascites, no evidence of PE. CT of abdomen and pelvis 02/08: Shows cirrhosis with a large amount of ascites and varices. There is near complete compression of the T11 vertebral body which is sclerotic. There is minimal compression and sclerosis associated with T8 vertebral body. There is a large right lateral abdominal hematoma. DISCHARGE INSTRUCTIONS: The patient is to follow up with her PCP in a week and needs her ceruloplasmin level repeated and consider repeating anti-smooth muscle antibody titer. She should also follow up for her lymphadenopathy noted on CT scan. She should also follow up of her anemia and hyponatremia as an outpatient as well. DISCHARGE CONDITION: Stable. ACTIVITY: As tolerated. DIET: Low sodium, low protein diet. DISCHARGE MEDICATIONS: New medications: 1. Folic acid 1 mg p.o. daily. 2. Furosemide 40 mg p.o. daily. 3. Spironolactone 100 mg p.o. q.a.m. All other home medications were resumed. Please refer to discharge med worksheet. Job ID: [id number] [facility]
[2019-02-13 16:09] LABS: IgA - Total IgA (Sendout) 534 mg/dL (87-352); Immunoglobulin - G (Sendout) 2735 mg/dL (700-1600); Immunoglobulin - M (Sendout) 186 mg/dL (26-217)
[2019-02-14 01:07] LABS: Lipase-Fluid 5 U/L (.)
[2019-02-14 13:09] LABS: Albumin-Ur 22.3 % (.); Alpha 1 - Ur 7.7 % (.); Alpha 2 - Ur 19.5 % (.); Beta-Ur 32.5 % (.); Gamma-Ur 17.9 % (.); M-Spike,% Not Observed % (Not Observed); Protein, Urine Less than 4.0 mg/dL (Not Estab.)
== END 2019-02-12 14:58 | disposition home or self-care (01) | DRG 433 ==
LOC: ERS 09:30 → T4-B 20:10 → OBSVTOIN 02-09 14:13
PROVIDERS: ADMIT Hospitalist; ATTEND Hospitalist
PROC: 0W9G3ZZ Drainage of Peritoneal Cavity, Percutaneous Approach (ICD-10-PCS; principal; 2019-02-10)
DX: K74.60 Unspecified cirrhosis of liver (principal); J44.0 Chronic obstructive pulmonary disease with (acute) lower respiratory infection; B19.20 Unspecified viral hepatitis C without hepatic coma; D52.9 Folate deficiency anemia, unspecified; F32.9 Major depressive disorder, single episode, unspecified; I89.8 Other specified noninfective disorders of lymphatic vessels and lymph nodes; J20.9 Acute bronchitis, unspecified; E03.9 Hypothyroidism, unspecified; F41.9 Anxiety disorder, unspecified; R73.9 Hyperglycemia, unspecified; Z88.8 Allergy status to other drugs, medicaments and biological substances; Z88.0 Allergy status to penicillin; Z90.49 Acquired absence of other specified parts of digestive tract; Z79.899 Other long term (current) drug therapy; Z79.890 Hormone replacement therapy
CPT/HCPCS: 36415; 36416; 49083; 71275; 74177; 80053; 80061; 80074; 80202; 82042; 82105; 82150; 82390; 82465; 82607; 82728; 82746; 82945; 83516; 83540; 83550; 83615; 83690; 84157; 84165; 84166; 84478; 84484; 85025; 85027; 85060; 85610; 85730; 86038; 86225; 86334; 87070; 87205; 87522; 87902; 88112; 89051; 94640; J1650; J1956; J3370; J7050; J7626; Q9967

== ENCOUNTER 2019-02-19 10:47 | Day surgery (SDC) | payer MEDICARE ==
[2019-02-18 16:25] VITALS: BMI 32.5
[2019-02-19] MEDS ORDERED: Sodium Bicarbonate 2.5 MEQ/5 ML VIAL ONE (11:15)
--- NOTE | 2019-02-19 12:14 | ULT ---
Ultrasound-guided paracentesis: HISTORY: Symptomatic ascites FINDINGS: Informed consent obtained prior to the procedure. Preprocedural imaging demonstrated intrap eritoneal free fluid. An area was marked in the right lower quadrant mid axillary line, and then meticulously prepped and d raped in normal sterile fashion and anesthetized with 1% buffered lidocaine. With direct sonographic guidance, a 19-gauge needle and 5 Wolof Yueh catheter were advanced into the abdomen. After the return of fluid, the catheter was advanced, and the needle was removed. Approximately 5 L of cloudy yellow fluid was aspirated. The introducer sheath was removed, and hemost asis was achieved with direct pressure. A dry sterile dressing was placed. The patient tolerated the procedure well and without immediate complication. IMPRESSION: Technically successful ultrasound-guided paracentesis.
[2019-02-19 14:01] VITALS: BP 123/65; TEMP 97.9
[2019-02-19 16:24] LABS: RBC Count-Automated (BF) 48 /cumm; WBC/Nucleated-Auto (BF) 162 uL
[2019-02-19 16:51] LABS: Body Fluid Source Ascites Body Fluid; Clarity Cloudy/Turbid (Clear)
[2019-02-19 16:56] LABS: BF Color Yellow; Tube # EDTA
[2019-02-19 17:33] LABS: BF Segmented Neutrophils 49 %; Cell Count Non Hematic 16 %; Lymphocytes 35 %
== END 2019-02-19 12:15 | disposition home or self-care (01) ==
LOC: ULT 10:47
PROVIDERS: ATTEND Internal Medicine
PROC: 0W9G3ZZ Drainage of Peritoneal Cavity, Percutaneous Approach (ICD-10-PCS; principal; 2019-02-19)
DX: R18.8 Other ascites (principal); K74.60 Unspecified cirrhosis of liver; I10 Essential (primary) hypertension; E03.9 Hypothyroidism, unspecified; M19.90 Unspecified osteoarthritis, unspecified site; K58.9 Irritable bowel syndrome, unspecified; Z88.0 Allergy status to penicillin; Z88.8 Allergy status to other drugs, medicaments and biological substances
CPT/HCPCS: 49083; 82042; 85060; 87070; 87205; 89051

== ENCOUNTER 2019-03-26 09:02 | Inpatient (IN) | payer MEDICARE ==
[2019-03-26 10:24] LABS: #Lymphocytes 1.1 thou/uL (1.20-3.40); #Monocytes 0.5 thou/uL (0.11-0.59); #Neutrophils 10.4 thou/uL (1.40-6.50); %Basophils 0.1 % (0.0-1.0); %Eosinophils 0.2 % (0.0-10.0); %Lymphocytes 9.4 % (21.0-51.0); %Neutrophils 86.3 % (42.0-75.0); Hemoglobin 14.3 g/dL (12.0-16.0); Mean Corpuscular Hemoglobin 35.1 pg (27.0-31.0); Mean Platelet Volume 7.7 fL (7.4-10.4); Platelet Count 237 thou/uL (130-400); RBC Distribution Width 13.6 % (11.5-14.5); Red Blood Cell (RBC) Count 4.09 mill/uL (4.20-5.40)
[2019-03-26] MEDS ORDERED: Ondansetron PF 4 MG/2 ML Vial ONE (10:32)
[2019-03-26] MEDS ORDERED: Famotidine/PF 20 mg/2ml Vial ONE (10:32)
[2019-03-26 10:48] LABS: ALT (SGPT) 12 U/L (8-55); AST (SGOT) 29 U/L (5-34); Albumin 2.7 g/dL (3.4-4.8); Alkaline Phosphatase 71 U/L (40-110); Anion Gap 11 mmol/L (10-20); BUN (Urea Nitrogen) 13 mg/dL (9.8-20.1); Bilirubin, Total 3.1 mg/dL (0.2-1.2); CK (CPK) 50 U/L (29-168); Calc. Creatinine Clearance 0 mL/min (70-130); Calcium 8.3 mg/dL (7.8-10.44); Carbon Dioxide 24 mmol/L (23-31); Chloride 103 mmol/L (98-107); Estimated GFR-MDRD 64; Glucose 152 mg/dL (80-115); Lipase 7 U/L (8-78); Potassium 3.3 mmol/L (3.5-5.1); Protein, Total 7.7 g/dL (6.0-8.3); Sodium 135 mmol/L (136-145)
[2019-03-26] MEDS ORDERED: Morphine 4 MG/ML VIAL ONE (11:17)
--- NOTE | 2019-03-26 12:47 | CT ---
CT OF THE ABDOMEN AND PELVIS WITH IV CONTRAST INDICATION: Abdominal pain with vomiting and body aches COMPARISON: CT of the abdomen and pelvis dated February 08, 2019. FINDINGS: ABDOMEN: Lung bases: Mild bibasilar atelectasis Liver: Cirrhotic morphology to the liver. No definite focal lesion is evident. Gallbladder: Not seen Pancreas: Normal. Adrenal glands: Normal. Spleen: 11.6 cm in length; mild to moderate perisplenic varicosities are slightly more pronounced jaja n on the prior exam. Kidneys and ureters: Normal. No hydronephrosis. Vasculature: There are moderate vascular calcifications seen involving the visualized vasculature. Lymph nodes:No lymphadenopathy. Free fluid in abdomen:There is moderate ascites PELVIS: Small and large bowel: There are loops of small bowel within the central lower abdomen that demonstra alex moderate wall thickening particularly on image 59 of series 2. There is a partially occlusive venous thrombus within the SMV extending into SMV branches of the lower central mesentery. There is a lso a partially occlusive thrombus extending into the main portal vein. There are scattered colonic diverticulosis. Appendix:Normal Bladder: Decompressed Rectal and perirectal soft tissues:Normal. Reproductive structures: Normal. Free fluid in pelvis: Moderate Lymphadenopathy pelvis: No lymphadenopathy is evident. Osseous structures: There are stable compression abnormalities involving T11 and T8. There is scatte red degenerative and osteoarthritic changes. Soft tissues:Normal. IMPRESSION: 1. Interval development of partially occlusive thrombus within the SMV extending into the SMV branche s of the lower central mesentery inducing ischemic enteritis to loops of small bowel within the lower central abdomen. There is also partial occlusive thrombus present within the main portal vein. Findings called to Zayda Kennedy, nurse practitioner at 12:40 PM on March 26, 2019. 2. Cirrhosis with findings of portal hypertension. Moderate ascites 3. Colonic diverticulosis. 4. Stable compression abnormality of T11 and T8
[2019-03-26 13:57] LABS: Lactic Acid 1.7 mmol/L (0.5-2.2)
[2019-03-26] MEDS ORDERED: Acetaminophen 325 MG TAB PO PRN (13:58)
[2019-03-26] MEDS ORDERED: Morphine 4 MG/ML VIAL SLOW IVP PRN (13:58)
[2019-03-26] MEDS ORDERED: Ondansetron PF 4 MG/2 ML Vial IVP PRN (13:58)
[2019-03-26] MEDS ORDERED: Ondansetron ODT 4 MG TAB SL PRN (13:58)
[2019-03-26] MEDS ORDERED: Heparin 25,000 units/D5W 500 ML IVPB SCH (14:18)
[2019-03-26] MEDS ORDERED: Heparin 10,000 UNITS/ 10 ML VIAL SLOW IVP SCH ×2 (14:18→17:30)
--- NOTE | 2019-03-26 14:26 | PDOC.HHP ---
Hospitalist HPI - History of Present Illness Abdominal pain History of Present Illness: Ms. 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 She states it started yesterday, character of pain is described as pressure like, located left sided upper and lower abdomen, non-radiating, timing has been continuous, exacerbated by movement, alleviated by laying down, severity is 10/10 at its worse, currently now 4/10. She states she normally has pain when she develops ascites in her belly, but that this pain feels distinctly different. This pain is mainly left sided. In the ED, a CT was ordered which demonstrated partially occlusive thrombus in the SMV extending into the SMV branches of the lower central mesentery including ischemic enteritis. There is also thrombus in the main portal vein. Otherwise denies fever, chills, nausea, vomiting, chest pain, shortness of breath, or other associated sxs. Hospitalist ROS - Review of Systems Constitutional: denies: fever, chills, sweats, weakness, malaise, other Eyes: denies: pain, vision change, conjunctivae inflammation, eyelid inflammation, redness, other ENT: denies: ear pain, ear discharge, nose pain, nose discharge, nose congestion , mouth pain, mouth swelling, throat pain, throat swelling, other Respiratory: denies: cough, dry, shortness of breath, hemoptysis, SOB with excertion, pleuritic pain, sputum, wheezing, other Cardiovascular: denies: chest pain, palpitations, orthopnea, paroxysmal noc. dyspnea, edema, light headedness, other Gastrointestinal: reports: nausea, abdominal pain. denies: vomiting, diarrhea, constipation, melena, hematochezia, other Genitourinary: denies: dysuria, frequency, incontinence, hematuria, retention, other Musculoskeletal: denies: neck pain, shoulder pain, arm pain, back pain, hand pain, leg pain, foot pain, other Skin: denies: rash, lesions, dodie, bruising, other Neurological: denies: weakness, numbness, incoordination, change in speech, confusion, seizures, other - Medication Medications: Medication Instructions Recorded Confirmed Type Levothyroxine Sodium 150 mcg PO DAILY 01/26/19 02/19/19 History Propranolol HCl 20 mg PO DAILY 01/26/19 02/19/19 History Venlafaxine [Effexor XR] 37.5 mg PO HS 01/26/19 02/19/19 History traZODone HCl [Trazodone HCl] 50 mg PO HS 01/26/19 02/19/19 History Acetaminophen [Tylenol Regular 650 mg PO Q4H PRN tab 01/29/19 02/19/19 Rx Strength] Lactulose 10 gm PO DAILY #30 packet 01/29/19 02/19/19 Rx guaiFENesin ER [Mucinex] 600 mg PO Q12HR #20 tab 01/29/19 02/19/19 Rx Folic Acid [Folvite] 1 mg PO DAILY #30 tab 02/12/19 02/19/19 Rx Furosemide [Lasix] 40 mg PO DAILY-AC #30 tab 02/12/19 02/19/19 Rx Spironolactone [Aldactone] 100 mg PO QAM-WM #30 tab 02/12/19 02/19/19 Rx Hospitalist History - Past Medical History Cardiac: reports: HTN Pulmonary: reports: no pertinent 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 Gastrointestinal: reports: Other (Cirrhosis) Heme/Onc: reports: no pertinent history Hepatobiliary: reports: Cirrhosis Psych: reports: no pertinent history Musculoskeletal: reports: no pertinent history Rheumatologic: reports: no pertinent history Infectious Disease: reports: no pertinent history ENT: reports: no pertinent history Endocrine: reports: Hyperthyroidism - Past Surgical History Past Surgical History: reports: Cholecystectomy, Hernia Repair - Family History Family History: reports: no pertinent history - Social History Alcohol: reports: None Drugs: reports: none Living Situation: With Family - Exam General Appearance: NAD, awake alert Eye: PERRL, anicteric sclera ENT: normocephalic atraumatic, no oropharyngeal lesions, moist mucosa Neck: supple, symmetric, no JVD, no thyromegaly, no lymphadenopathy, no carotid bruit Heart: RRR, no murmur, no gallops, no rubs, normal peripheral pulses Respiratory: CTAB, no wheezes, no rales, no ronchi, normal chest expansion, no tachypnea, normal percussion Gastrointestinal: soft, normal bowel sounds, no palpable masses, no hepatomegaly , no splenomegaly, no bruit, distended Gastrointestinal - other findings: distended vein, protuberant, tenderness to palpation along left upper/lower Extremities: no cyanosis, no clubbing, no edema Skin: normal turgor, no lesions, no rashes Neurological: cranial nerve grossly intact, normal sensation to touch, no weakness, no focal deficits, no new deficit Musculoskeletal: normal tone, normal strength, no muscle wasting Psychiatric: normal affect, normal behavior, A&O x 3 Hospitalist Results - Labs Result Diagrams: 03/26/19 14:23 03/26/19 10:15 Lab results: WBC 12.0 thou/uL (4.8-10.8) H 03/26/19 10:15 Hgb 14.3 g/dL (12.0-16.0) 03/26/19 10:15 Hct 43.4 % (36.0-47.0) 03/26/19 10:15 MCV 106.0 fL (78.0-98.0) H 03/26/19 10:15 Plt Count 237 thou/uL (130-400) 03/26/19 10:15 Neutrophils % 86.3 % (42.0-75.0) H 03/26/19 10:15 Sodium 135 mmol/L (136-145) L 03/26/19 10:15 Potassium 3.3 mmol/L (3.5-5.1) L 03/26/19 10:15 Chloride 103 mmol/L (98-107) 03/26/19 10:15 Carbon Dioxide 24 mmol/L (23-31) 03/26/19 10:15 BUN 13 mg/dL (9.8-20.1) 03/26/19 10:15 Creatinine 0.88 mg/dL (0.6-1.1) 03/26/19 10:15 Glucose 152 mg/dL (80-115) H 03/26/19 10:15 Lactic Acid 1.7 mmol/L (0.5-2.2) 03/26/19 13:31 Calcium 8.3 mg/dL (7.8-10.44) 03/26/19 10:15 Total Bilirubin 3.1 mg/dL (0.2-1.2) H 03/26/19 10:15 AST 29 U/L (5-34) 03/26/19 10:15 ALT 12 U/L (8-55) 03/26/19 10:15 Alkaline Phosphatase 71 U/L (40-110) 03/26/19 10:15 Creatine Kinase 50 U/L (29-168) 03/26/19 10:15 Serum Total Protein 7.7 g/dL (6.0-8.3) 03/26/19 10:15 Albumin 2.7 g/dL (3.4-4.8) L 03/26/19 10:15 Lipase 7 U/L (8-78) L 03/26/19 10:15 - Radiology Interpretation CT scan - abdomen Status: report reviewed by pr Hospitalist H&P A/P - Problem (1) Superior mesenteric vein thrombosis Code(s): K55.069 - ACUTE INFARCTION OF INTESTINE, PART AND EXTENT UNSPECIFIED Status: Acute (2) Decompensated hepatic cirrhosis Code(s): K72.90 - HEPATIC FAILURE, UNSPECIFIED WITHOUT COMA Status: Acute (3) HTN (hypertension) Code(s): I10 - ESSENTIAL (PRIMARY) HYPERTENSION Status: Acute (4) Hypothyroidism Code(s): E03.9 - HYPOTHYROIDISM, UNSPECIFIED Status: Acute (5) Depression Code(s): F32.9 - MAJOR DEPRESSIVE DISORDER, SINGLE EPISODE, UNSPECIFIED Status : Acute - Plan Plan: Admit to surgical unit for further management Will start on Heparin drip for SMV/portal thrombosis, titrate drip as per protocol Consult placed to surgery and GI team for further recommendations. Will continue other medications from home for chronic conditions once reconciled Code Status: Full Code ACP: Daughter is surrogate decision maker Disposition: Admit for SMV thrombosis. Likely greater than 2 midnights required in eval and tx of thrombosis and selection of NOAC.
[2019-03-26] MEDS ORDERED: Iopamidol-370 76% 500 ML 1 ML ONE (14:29)
[2019-03-26 14:37] LABS: Hemoglobin 13.5 g/dL (12.0-16.0); Platelet Count 166 thou/uL (130-400)
[2019-03-26 16:22] VITALS: BMI 29.2
[2019-03-26 18:13] LABS: INR-International Normal Ratio 1.5; PTT 35.4 SEC (22.9-36.1); Prothrombin Time 17.6 SEC (12.0-14.7)
[2019-03-26] MEDS: Lactated Ringer's 1,000 ML IV SCH (18:15)
[2019-03-26] MEDS: Heparin 25,000 units/D5W 500 ML IV SCH (19:13)
--- NOTE | 2019-03-26 21:20 | CON ---
DATE OF CONSULTATION: 03/26/2019 CHIEF COMPLAINT: Abdominal pain. HISTORY OF PRESENT ILLNESS: Ms. Busch is a 68-year-old woman with a history of cirrhosis and ascites, who presented to the emergency room with abdominal pain. Yesterday evening, she had relatively sudden onset periumbilical to lower abdominal pain, which was sharp, cramping and continuous. The pain has persisted throughout the day and she ultimately went on to the emergency room this morning for further care. She had a CT scan performed of the abdomen and pelvis that showed an acute thrombus in the mesenteric vein and branches as well as portal vein. These were nonocclusive thrombus that was noted. She did have some bowel wall thickening of the distal small bowel associated with this. She vomited last night, but has not had further nausea and vomiting today. She states that she has lost over 50 pounds with diuresis since originally presenting with cirrhosis and ascites back in January. She has had paracentesis 3 or 4 times since then. She was seen by my partner, Dr. Murphy with previous hospitalization. She has had no fever associated with this. Her pain has improved somewhat with morphine in the emergency room and IV fluids. She has had no diarrhea or constipation or blood in the stool. She has 2 or 3 normal stools per day per her report. PAST MEDICAL HISTORY: COPD, hypertension, cirrhosis, cholecystectomy, ascites, hypothyroidism, kidney stones. PAST SURGICAL HISTORY: Hernia surgery. FAMILY HISTORY: Negative for GI malignancy or liver disease. SOCIAL HISTORY: No alcohol, tobacco, or drugs. ALLERGIES: ALBUTEROL, ETANERCEPT, PENICILLIN. SHE STATES THAT THE REACTION TO PENICILLIN WAS SEVERE AND THAT SHE QUITS BREATHING WITH IT. MEDICATIONS: Outpatient medications; 1. Furosemide. 2. Lactulose. 3. Levothyroxine. 4. Propranolol. 5. Spironolactone. 6. Venlafaxine. 7. Trazodone. REVIEW OF SYSTEMS: Negative x10 systems reviewed, except as stated in the history of present illness. PHYSICAL EXAMINATION: VITAL SIGNS: Temperature 97.8, pulse 95, blood pressure 126/86. GENERAL: She is in no acute distress. Alert and oriented x3. She appears comfortable. HEENT: Her eyes have no scleral icterus. Oropharynx is clear without lesions. NECK: No cervical or supraclavicular lymphadenopathy. LUNGS: Clear to auscultation bilaterally. HEART: Regular rate and rhythm without murmur. ABDOMEN: Soft, not apparently tender to palpation, mildly distended with ascites. Bowel sounds are absent. EXTREMITIES: No lower extremity edema. LABORATORY DATA: White blood cell count 12.0, hemoglobin 13.5, platelets 166. INR 1.4 back in February. Creatinine 0.88, bilirubin 3.1, AST ALT 12, alkaline phosphatase 71, albumin 2.7, lipase 7. Alpha fetoprotein was 1.1 on 02/08/2019. IMPRESSION: 1. Acute mesenteric vein thrombosis with nonocclusive thrombosis of the superior mesenteric vein branches and mesenteric vein and nonocclusive thrombosis of the portal vein. She has early signs of ischemia with significant pain and vomiting along with thickening of the bowel by CT scan and decreased bowel sounds. Given the portal vein involvement and partial thrombosis, it is likely that she will be able to be treated medically without need to progress to surgery. She will receive IV fluids to optimize perfusion to the gut and anticoagulation and bowel rest. If she starts developing nausea or bowel distention, then NG tube should be placed to suction. 2. Cirrhosis. Currently cryptogenic. She has antibody to hepatitis C, but does not have chronic hepatitis C as her viral load is undetectable. She does have decompensated cirrhosis with elevated bilirubin and low albumin and elevated INR and ascites. 3. Ascites. She has undergone paracentesis previously. She has not had prior spontaneous bacterial peritonitis. RECOMMENDATIONS: 1. Anticoagulation. She has been started on heparin. This can likely be transitioned to Lovenox tomorrow or enoxaparin tomorrow. 2. Bowel rest. If she develops abdominal distention or nausea, then place NG tube for bowel decompression. Distention of the bowel with fluid will further compromise vascular flow to the gut and increase risk for ischemia. 3. Start antibiotics for prophylaxis for spontaneous bacterial peritonitis. If she does develop a bowel wall edema and some degree of ischemia that can increase the risk for SBP. She has a history of a severe allergy to penicillin, so rather than cephalosporin I will give ciprofloxacin. Job ID: [id number]
[2019-03-27 02:24] LABS: PTT Greater than 250.0 SEC (22.9-36.1)
[2019-03-27] MEDS: Morphine 4 MG/ML VIAL SLOW IVP PRN ×2 (03:49→15:13)
[2019-03-27] MEDS: Lactated Ringer's 1,000 ML IV SCH ×2 (03:53→15:15)
[2019-03-27] MEDS ORDERED: Ondansetron PF 4 MG/2 ML Vial SLOW IVP PRN (04:17)
[2019-03-27 04:52] LABS: #Basophils 0.1 thou/uL (0.0-0.2); #Eosinphils 0.2 thou/uL (0.0-0.7); #Lymphocytes 1.5 thou/uL (1.20-3.40); #Monocytes 0.8 thou/uL (0.11-0.59); #Neutrophils 11.9 thou/uL (1.40-6.50); %Basophils 0.5 % (0.0-1.0); %Eosinophils 1.1 % (0.0-10.0); %Lymphocytes 10.4 % (21.0-51.0); %Monocytes 5.8 % (0.0-10.0); %Neutrophils 82.2 % (42.0-75.0); Hemoglobin 12.9 g/dL (12.0-16.0); Mean Corpuscular Hemoglobin 35.2 pg (27.0-31.0); Platelet Count 203 thou/uL (130-400); RBC Distribution Width 13.6 % (11.5-14.5); Red Blood Cell (RBC) Count 3.66 mill/uL (4.20-5.40); White Blood Cell (WBC) Count 14.5 thou/uL (4.8-10.8)
[2019-03-27 05:10] LABS: PTT 219.2 SEC (22.9-36.1)
[2019-03-27 05:12] LABS: Anion Gap 12 mmol/L (10-20); BUN (Urea Nitrogen) 13 mg/dL (9.8-20.1); Calc. Creatinine Clearance 75 mL/min (70-130); Calcium 7.9 mg/dL (7.8-10.44); Carbon Dioxide 22 mmol/L (23-31); Chloride 105 mmol/L (98-107); Estimated GFR-MDRD 66; Glucose 105 mg/dL (80-115); Potassium 3.3 mmol/L (3.5-5.1); Sodium 136 mmol/L (136-145)
--- NOTE | 2019-03-27 12:13 | PRG ---
DATE OF SERVICE: 03/27/2019 SUBJECTIVE: Ms. Busch continues to have periumbilical to lower abdominal pain. She vomited a small amount this morning, still feels a little bit nauseated. She has had no flatus or bowel movement. She urinated this morning. OBJECTIVE: VITAL SIGNS: Temperature 98.1, pulse 98, blood pressure 95/70. GENERAL: She is in no acute distress. She is alert and oriented x3. She appears comfortable. HEENT: Her eyes have no scleral icterus. Her oropharynx is clear without lesions. LUNGS: Clear to auscultation bilaterally. HEART: Regular rate and rhythm without murmur. ABDOMEN: Soft. She has tenderness in the periumbilical region. Her bowel sounds are active today. This is an improvement from yesterday. EXTREMITIES: Have no lower extremity edema. LABORATORY DATA: White blood cell count 14.5, hemoglobin 12.9, platelets 203. INR 1.5. Creatinine 0.85. IMPRESSION: 1. Partially occlusive thrombus in the superior mesenteric vein and branches and portal vein. This is likely secondary to her cirrhosis. Involvement including the portal vein tends to have lower likelihood of progression to infarction. She did have bowel wall thickening and has had significant pain, still concerning for some degree of ischemia. Her white blood cell count did creep up a bit today. Her vital signs are otherwise stable, and she is complaining of being hungry, which at least is a positive sign. Given that she threw up this morning and has had no stool or air output from her rectum today, I think that placement of an NG tube to decompress the bowel to optimize blood flow to the bowel is indicated at this point. She does not appear to have infarction fully at this point and should not require surgery currently; however, if she does ultimately develop transmural infarction, then she will be extremely high risk given her underlying decompensated cirrhosis. 2. Decompensated cirrhosis with ascites, elevated bilirubin, and low albumin. 3. Ascites. RECOMMENDATIONS: 1. Anticoagulation. Currently, on heparin drip. We can likely transition to Lovenox soon as this will be more predictable and easily managed than the heparin drip. 2. Antibiotics for SBP prophylaxis given the risk of bacterial translocation with bowel ischemia and ascites. 3. NG tube placement to low intermittent suction. 4. IV fluids to help optimize bowel perfusion. Job ID: [id number]
[2019-03-27 14:45] LABS: PTT 229.4 SEC (22.9-36.1)
--- NOTE | 2019-03-27 14:59 | PRG ---
DATE OF SERVICE: 03/27/2019 ADDENDUM: I injected lidocaine jelly with Uro-Jet into her right naris. The 16-Uzbek NG tube was placed partly into her nasal cavity, but I met mild resistance. The PTT was then reported at over 300 and I did not force the NG tube at that point. If she develops more significant abdominal pain or recurrent vomiting or distention, then we can repeat attempted NG placement. Otherwise, for now, I will hold off the NG tube as the tube did not go smoothly to her naris and her PTT is so high. Job ID: [id number]
--- NOTE | 2019-03-27 18:38 | PDOC.HOSPP ---
- Subjective Subjective: Continues with abdominal pain left sided. Associated with nausea. Otherwise no sxs reported. - Objective Vital Signs & Weight: Vital Signs (12 hours) Temp Pulse Resp BP Pulse Ox 03/27/19 15:32 98.7 F 92 17 95/73 91 L 03/27/19 11:15 98.1 F 98 14 95/70 91 L 03/27/19 08:00 95 03/27/19 07:44 98.1 F 99 16 124/81 95 Weight Weight 170 lb 8 oz I&O: 03/26/19 03/27/19 03/28/19 06:59 06:59 06:59 Intake Total 1272 Output Total 150 Balance 1122 Result Diagrams: 03/27/19 04:35 03/27/19 04:35 Hospitalist ROS - Review of Systems Constitutional: denies: fever, chills, sweats, weakness, malaise, other Eyes: denies: pain, vision change, conjunctivae inflammation, eyelid inflammation, redness, other ENT: denies: ear pain, ear discharge, nose pain, nose discharge, nose congestion , mouth pain, mouth swelling, throat pain, throat swelling, other Respiratory: denies: cough, dry, shortness of breath, hemoptysis, SOB with excertion, pleuritic pain, sputum, wheezing, other Cardiovascular: denies: chest pain, palpitations, orthopnea, paroxysmal noc. dyspnea, edema, light headedness, other Gastrointestinal: reports: nausea. denies: vomiting, abdominal pain, diarrhea, constipation, melena, hematochezia, other Genitourinary: denies: dysuria, frequency, incontinence, hematuria, retention, other Musculoskeletal: denies: neck pain, shoulder pain, arm pain, back pain, hand pain, leg pain, foot pain, other Skin: denies: rash, lesions, dodie, bruising, other Neurological: denies: weakness, numbness, incoordination, change in speech, confusion, seizures, other - Medication Medications: Active Medications Generic Name Dose Route Start Last Admin Trade Name Freq PRN Reason Stop Dose Admin Heparin Sodium (Porcine) 6,160 units 03/26/19 17:30 03/26/19 18:35 Heparin 1,000 Units/Ml (10 Ml) SLOW IVP 6,160 unit WILLCALL PATSY Administration Heparin Sodium/Dextrose 500 mls @ 0 mls/hr 03/26/19 17:30 03/26/19 19:13 Heparin 25,000 Units/D5w 500 Ml IV 500 mls INF PATSY Administration Protocol As Directed Ciprofloxacin/Dextrose 400 mg/ 200 mls @ 200 mls/hr 03/26/19 21:00 03/27/19 08:29 Device IVPB 200 mls Q12HR PATSY Administration Lactated Ringer's 1,000 mls @ 100 mls/hr 03/26/19 17:45 03/27/19 15:15 Lactated Ringer's IV 1,000 mls .Q10H PATSY Administration Morphine Sulfate 4 mg 03/27/19 03:39 03/27/19 15:13 Morphine SLOW IVP 4 mg Q4H PRN Administration Pain Ondansetron HCl 4 mg 03/27/19 04:17 03/27/19 16:58 Zofran SLOW IVP 4 mg Q6H PRN Administration Nausea/Vomiting - Exam General Appearance: NAD, awake alert Eye: PERRL, anicteric sclera ENT: normocephalic atraumatic, no oropharyngeal lesions, moist mucosa Neck: supple, symmetric, no JVD, no thyromegaly, no lymphadenopathy, no carotid bruit Heart: RRR, no murmur, no gallops, no rubs, normal peripheral pulses Respiratory: CTAB, no wheezes, no rales, no ronchi, normal chest expansion, no tachypnea, normal percussion Gastrointestinal: normal bowel sounds, no palpable masses, no hepatomegaly, no splenomegaly, no bruit, tender to palpation, diminished bowl sounds Extremities: no cyanosis, no clubbing, no edema Skin: normal turgor, no lesions, no rashes Neurological: cranial nerve grossly intact, normal sensation to touch, no weakness, no focal deficits, no new deficit Musculoskeletal: normal tone, normal strength, no muscle wasting Psychiatric: normal affect, normal behavior, A&O x 3 Hosp A/P (1) Superior mesenteric vein thrombosis Code(s): K55.069 - ACUTE INFARCTION OF INTESTINE, PART AND EXTENT UNSPECIFIED Status: Acute (2) Decompensated hepatic cirrhosis Code(s): K72.90 - HEPATIC FAILURE, UNSPECIFIED WITHOUT COMA Status: Acute (3) HTN (hypertension) Code(s): I10 - ESSENTIAL (PRIMARY) HYPERTENSION Status: Acute (4) Hypothyroidism Code(s): E03.9 - HYPOTHYROIDISM, UNSPECIFIED Status: Acute (5) Depression Code(s): F32.9 - MAJOR DEPRESSIVE DISORDER, SINGLE EPISODE, UNSPECIFIED Status : Acute - Plan Continue with heparin drip. She is a very poor surgical candidate if the bowel infarcts. Surgery is aware of patient but no formal consult for now. Discussed with GI, plan is to possible switch in the coming days on NOAC of choice. Will continue other medication for chronic conditions including lactulose, levothyroxine, trazodone, lasix, sprinolactone, and effexor Continue to trend daily lactic acid and WBCs. Disposition: Continue heparin drip. Continue to support pain/nausea sxs.
[2019-03-27] MEDS: Spironolactone 100 MG TAB PO SCH (21:14)
[2019-03-27] MEDS: Propranolol HCl 20 MG TAB PO SCH (21:14)
[2019-03-27] MEDS: traZODone HCl 50 MG TAB PO SCH (21:15)
[2019-03-27] MEDS: Venlafaxine XR 37.5 MG CAP PO SCH (21:15)
[2019-03-27 22:44] LABS: PTT 240.5 SEC (22.9-36.1)
[2019-03-28] MEDS: Lactated Ringer's 1,000 ML IV SCH ×4 (00:43→23:34)
[2019-03-28] MEDS: Levothyroxine 150 MCG TAB PO SCH (05:44)
[2019-03-28] MEDS: Heparin 25,000 units/D5W 500 ML IV SCH (05:45)
[2019-03-28 05:49] LABS: #Eosinphils 0.3 thou/uL (0.0-0.7); #Lymphocytes 1.4 thou/uL (1.20-3.40); #Monocytes 0.7 thou/uL (0.11-0.59); #Neutrophils 7.3 thou/uL (1.40-6.50); %Basophils 0.1 % (0.0-1.0); %Eosinophils 2.8 % (0.0-10.0); %Lymphocytes 14.6 % (21.0-51.0); %Monocytes 7.2 % (0.0-10.0); %Neutrophils 75.2 % (42.0-75.0); Mean Corpuscular Hemoglobin 35.5 pg (27.0-31.0); Mean Platelet Volume 8.4 fL (7.4-10.4); Platelet Count 157 thou/uL (130-400); RBC Distribution Width 13.5 % (11.5-14.5); Red Blood Cell (RBC) Count 3.09 mill/uL (4.20-5.40); White Blood Cell (WBC) Count 9.8 thou/uL (4.8-10.8)
[2019-03-28 06:07] LABS: Lactic Acid 1.8 mmol/L (0.5-2.2)
[2019-03-28 06:16] LABS: ALT (SGPT) 12 U/L (8-55); AST (SGOT) 44 U/L (5-34); Albumin 2.2 g/dL (3.4-4.8); Alkaline Phosphatase 62 U/L (40-110); Anion Gap 11 mmol/L (10-20); BUN (Urea Nitrogen) 13 mg/dL (9.8-20.1); Bilirubin, Total 1.8 mg/dL (0.2-1.2); Calc. Creatinine Clearance 72 mL/min (70-130); Calcium 7.6 mg/dL (7.8-10.44); Carbon Dioxide 23 mmol/L (23-31); Chloride 104 mmol/L (98-107); Estimated GFR-MDRD 63; Globulin 4.2 g/dL (2.4-3.5); Glucose 103 mg/dL (80-115); Potassium 4.1 mmol/L (3.5-5.1); Protein, Total 6.4 g/dL (6.0-8.3); Sodium 134 mmol/L (136-145)
[2019-03-28] MEDS: Furosemide 20 MG TAB PO SCH (08:06)
[2019-03-28] MEDS: Propranolol HCl 20 MG TAB PO SCH ×2 (08:06→20:59)
[2019-03-28] MEDS: Loratadine 10 MG TAB PO SCH (08:06)
[2019-03-28] MEDS: Potassium Chloride 10 MEQ TAB PO SCH (08:06)
[2019-03-28] MEDS: Spironolactone 100 MG TAB PO SCH ×3 (08:14→20:59)
[2019-03-28 14:25] LABS: Hemoglobin 11.1 g/dL (12.0-16.0); Platelet Count 162 thou/uL (130-400)
--- NOTE | 2019-03-28 15:14 | PDOC.HOSPP ---
- Subjective Subjective: Continues with moderate abdominal pain left sided. No vomiting, diarrhea, sob, cp, fever, or chills. States she is passing bowel movement. - Objective Vital Signs & Weight: Vital Signs (12 hours) Temp Pulse Resp BP Pulse Ox 03/28/19 11:11 98.9 F 60 17 103/69 92 L 03/28/19 08:20 92 L 03/28/19 07:30 98.9 F 72 19 132/79 92 L 03/28/19 04:00 97.9 F 73 18 133/76 93 L Weight Weight 170 lb 8 oz I&O: 03/27/19 03/28/19 03/29/19 06:59 06:59 06:59 Intake Total 1272 1500 Output Total 150 Balance 1122 1500 Result Diagrams: 03/28/19 14:11 03/28/19 05:22 Hospitalist ROS - Review of Systems All other systems reviewed; all pertinent +/- noted in HPI/Subj - Medication Medications: Active Medications Generic Name Dose Route Start Last Admin Trade Name Jose Aq PRN Reason Stop Dose Admin Furosemide 20 mg 03/28/19 07:30 03/28/19 08:06 Lasix PO 20 mg DAILY-AC PATSY Administration Heparin Sodium (Porcine) 6,160 units 03/26/19 17:30 03/26/19 18:35 Heparin 1,000 Units/Ml (10 Ml) SLOW IVP 6,160 unit WILLCALL PATSY Administration Heparin Sodium/Dextrose 500 mls @ 0 mls/hr 03/26/19 17:30 03/28/19 05:45 Heparin 25,000 Units/D5w 500 Ml IV 500 mls INF PATSY Administration Protocol As Directed Ciprofloxacin/Dextrose 400 mg/ 200 mls @ 200 mls/hr 03/26/19 21:00 03/28/19 08:06 Device IVPB 200 mls Q12HR PATSY Administration Lactated Ringer's 1,000 mls @ 100 mls/hr 03/26/19 17:45 03/28/19 13:11 Lactated Ringer's IV 1,000 mls .Q10H PATSY Administration Lactulose 20 gm 03/27/19 21:00 03/28/19 14:47 Lactulose PO Not Given TID PATSY Levothyroxine Sodium 150 mcg 03/28/19 06:00 03/28/19 05:44 Synthroid PO 150 mcg 0600 PATSY Administration Loratadine 10 mg 03/28/19 09:00 03/28/19 08:06 Claritin PO 10 mg DAILY PATSY Administration Morphine Sulfate 4 mg 03/27/19 03:39 03/27/19 15:13 Morphine SLOW IVP 4 mg Q4H PRN Administration Pain Ondansetron HCl 4 mg 03/27/19 04:17 03/27/19 16:58 Zofran SLOW IVP 4 mg Q6H PRN Administration Nausea/Vomiting Potassium Chloride 10 meq 03/28/19 09:00 03/28/19 08:06 Klor-Con 10 PO 10 meq DAILY PATSY Administration Propranolol HCl 20 mg 03/27/19 21:00 03/28/19 08:06 Inderal PO 20 mg BID PATSY Administration Spironolactone 50 mg 03/27/19 21:00 03/28/19 14:17 Aldactone PO 50 mg TID PATSY Administration Trazodone HCl 50 mg 03/27/19 21:00 03/27/19 21:15 Desyrel PO 50 mg HS PATSY Administration Venlafaxine HCl 37.5 mg 03/27/19 21:00 03/27/19 21:15 Effexor Xr PO 37.5 mg HS PATSY Administration - Exam General Appearance: NAD, awake alert Eye: PERRL, anicteric sclera ENT: normocephalic atraumatic, no oropharyngeal lesions, moist mucosa Neck: supple, symmetric, no JVD, no thyromegaly, no lymphadenopathy, no carotid bruit Heart: RRR, no murmur, no gallops, no rubs, normal peripheral pulses Respiratory: CTAB, no wheezes, no rales, no ronchi, normal chest expansion, no tachypnea, normal percussion Gastrointestinal: non-distended, normal bowel sounds, no palpable masses, no hepatomegaly, no splenomegaly, no bruit, tender to palpation Gastrointestinal - other findings: left quadrant Extremities: no cyanosis, no clubbing, no edema Skin: normal turgor, no lesions, no rashes Neurological: cranial nerve grossly intact, normal sensation to touch, no weakness, no focal deficits, no new deficit Musculoskeletal: normal tone, normal strength, no muscle wasting Psychiatric: normal affect, normal behavior, A&O x 3 Hosp A/P (1) Superior mesenteric vein thrombosis Code(s): K55.069 - ACUTE INFARCTION OF INTESTINE, PART AND EXTENT UNSPECIFIED Status: Acute (2) Decompensated hepatic cirrhosis Code(s): K72.90 - HEPATIC FAILURE, UNSPECIFIED WITHOUT COMA Status: Acute (3) HTN (hypertension) Code(s): I10 - ESSENTIAL (PRIMARY) HYPERTENSION Status: Acute (4) Hypothyroidism Code(s): E03.9 - HYPOTHYROIDISM, UNSPECIFIED Status: Acute (5) Depression Code(s): F32.9 - MAJOR DEPRESSIVE DISORDER, SINGLE EPISODE, UNSPECIFIED Status : Acute - Plan Continue with heparin drip. She is a very poor surgical candidate if the bowel infarcts. Surgery is aware of patient but no formal consult for now. Discussed with GI, plan is to possible switch in the coming days on NOAC of choice. Will continue other medication for chronic conditions including lactulose, levothyroxine, trazodone, lasix, sprinolactone, and effexor Continue to trend daily lactic acid and WBCs, improving Continue ciprofloxacin for SBP prophylaxis Disposition: Continue heparin drip. GI to advance diet to clears today. Continue to support pain/nausea sxs.
--- NOTE | 2019-03-28 16:50 | PRG ---
DATE OF SERVICE: 03/28/2019 SUBJECTIVE: This is a 68-year-old female with liver cirrhosis, ascites. The patient admitted to the hospital yesterday with abdominal pain and also CAT scan showing evidence of venous thrombosis. She was found to have blood clots and also portal veins. She had IV heparin. abdomen is distended and bloated yesterday. Attempted NG tube was not successful. She is actually feeling better today. She is awake, alert, and communicative. She is having loose stools and also passing flatus. There is no nausea, no vomiting. She really wants to eat today. PHYSICAL EXAMINATION: GENERAL: Appears very comfortable. She is awake, alert, oriented to time, place, and person. VITAL SIGNS: Temperature 98.9 degrees Fahrenheit, pulse is 60, blood pressure 103/69. CARDIOVASCULAR SYSTEM: First and second heart sounds normal. LUNGS: Clear to auscultation. ABDOMEN: Distended, but soft to palpate. Abdomen is tender more over the epigastric area, periumbilical area, and also left upper quadrant. There is no tenderness over the right side. Bowel sounds are active. LABORATORY DATA: From today, lytes are normal. Glucose is 103, calcium is 7.6, bilirubin 1.8, albumin 2.2. CBC; WBC count had come down to 9800, hemoglobin 11, hematocrit 33.2, MCV 107. RECOMMENDATION: 1. Clear liquid diet. 2. Continue anticoagulation. 3. Follow up labs. Job ID: [id number]
[2019-03-28 19:49] LABS: PTT 180.5 SEC (22.9-36.1)
[2019-03-28] MEDS: Venlafaxine XR 37.5 MG CAP PO SCH (20:59)
[2019-03-28] MEDS: traZODone HCl 50 MG TAB PO SCH (20:59)
[2019-03-28] MEDS: Morphine 4 MG/ML VIAL SLOW IVP PRN (21:10)
[2019-03-29 04:26] LABS: #Basophils 0.1 thou/uL (0.0-0.2); #Eosinphils 0.5 thou/uL (0.0-0.7); #Lymphocytes 1.8 thou/uL (1.20-3.40); #Monocytes 0.6 thou/uL (0.11-0.59); #Neutrophils 5.7 thou/uL (1.40-6.50); %Basophils 0.7 % (0.0-1.0); %Eosinophils 5.6 % (0.0-10.0); %Lymphocytes 20.2 % (21.0-51.0); %Monocytes 7.4 % (0.0-10.0); %Neutrophils 66.1 % (42.0-75.0); Hemoglobin 11.7 g/dL (12.0-16.0); Mean Corpuscular Hemoglobin 35.4 pg (27.0-31.0); Mean Platelet Volume 8.1 fL (7.4-10.4); Platelet Count 182 thou/uL (130-400); RBC Distribution Width 13.4 % (11.5-14.5); Red Blood Cell (RBC) Count 3.29 mill/uL (4.20-5.40); White Blood Cell (WBC) Count 8.6 thou/uL (4.8-10.8)
[2019-03-29 04:41] LABS: Anion Gap 8 mmol/L (10-20); BUN (Urea Nitrogen) 10 mg/dL (9.8-20.1); Calc. Creatinine Clearance 77 mL/min (70-130); Calcium 7.5 mg/dL (7.8-10.44); Carbon Dioxide 26 mmol/L (23-31); Chloride 102 mmol/L (98-107); Estimated GFR-MDRD 68; Glucose 99 mg/dL (80-115); Lactic Acid 1.4 mmol/L (0.5-2.2); Potassium 3.4 mmol/L (3.5-5.1); Sodium 133 mmol/L (136-145)
[2019-03-29] MEDS: Levothyroxine 150 MCG TAB PO SCH (05:17)
[2019-03-29] MEDS: Lactated Ringer's 1,000 ML IV SCH ×2 (05:17→11:34)
[2019-03-29] MEDS: Loratadine 10 MG TAB PO SCH (08:17)
[2019-03-29] MEDS: Furosemide 20 MG TAB PO SCH (08:17)
[2019-03-29] MEDS: Potassium Chloride 10 MEQ TAB PO SCH (08:17)
[2019-03-29] MEDS: Propranolol HCl 20 MG TAB PO SCH ×2 (10:32→20:42)
[2019-03-29] MEDS: Spironolactone 100 MG TAB PO SCH (10:37)
--- NOTE | 2019-03-29 11:06 | PDOC.HOSPP ---
- Subjective Subjective: Still has some left sided abdominal pain, states much improved. No nausea or vomiting, passing BM. - Objective Vital Signs & Weight: Vital Signs (12 hours) Temp Pulse Resp BP Pulse Ox 03/29/19 08:10 90 L 03/29/19 07:43 98.2 F 68 18 98/66 90 L 03/29/19 04:00 98 F 66 16 118/80 92 L 03/29/19 00:00 97.8 F 68 18 123/72 92 L Weight Weight 170 lb 8 oz I&O: 03/28/19 03/29/19 03/30/19 06:59 06:59 06:59 Intake Total 1500 1198 Balance 1500 1198 Result Diagrams: 03/29/19 04:06 03/29/19 04:06 Hospitalist ROS - Review of Systems All other systems reviewed; all pertinent +/- noted in HPI/Subj - Medication Medications: Active Medications Generic Name Dose Route Start Last Admin Trade Name Freq PRN Reason Stop Dose Admin Furosemide 20 mg 03/28/19 07:30 03/29/19 08:17 Lasix PO 20 mg DAILY-AC PATSY Administration Heparin Sodium (Porcine) 6,160 units 03/26/19 17:30 03/26/19 18:35 Heparin 1,000 Units/Ml (10 Ml) SLOW IVP 6,160 unit WILLCALL PATSY Administration Heparin Sodium/Dextrose 500 mls @ 0 mls/hr 03/26/19 17:30 03/28/19 05:45 Heparin 25,000 Units/D5w 500 Ml IV 500 mls INF PATSY Administration Protocol As Directed Ciprofloxacin/Dextrose 400 mg/ 200 mls @ 200 mls/hr 03/26/19 21:00 03/29/19 08:18 Device IVPB 200 mls Q12HR PASTY Administration Lactated Ringer's 1,000 mls @ 100 mls/hr 03/26/19 17:45 03/29/19 05:17 Lactated Ringer's IV Not Given .Q10H PATSY Lactulose 20 gm 03/27/19 21:00 03/29/19 08:17 Lactulose PO 20 gm TID PATSY Administration Levothyroxine Sodium 150 mcg 03/28/19 06:00 03/29/19 05:17 Synthroid PO 150 mcg 0600 PATSY Administration Loratadine 10 mg 03/28/19 09:00 03/29/19 08:17 Claritin PO 10 mg DAILY PATSY Administration Morphine Sulfate 4 mg 03/27/19 03:39 03/28/19 21:10 Morphine SLOW IVP 4 mg Q4H PRN Administration Pain Ondansetron HCl 4 mg 03/27/19 04:17 03/27/19 16:58 Zofran SLOW IVP 4 mg Q6H PRN Administration Nausea/Vomiting Potassium Chloride 10 meq 03/28/19 09:00 03/29/19 08:17 Klor-Con 10 PO 10 meq DAILY PATSY Administration Propranolol HCl 20 mg 03/27/19 21:00 03/29/19 10:32 Inderal PO 20 mg BID PATSY Administration Trazodone HCl 50 mg 03/27/19 21:00 03/28/19 20:59 Desyrel PO 50 mg HS PATSY Administration Venlafaxine HCl 37.5 mg 03/27/19 21:00 03/28/19 20:59 Effexor Xr PO 37.5 mg HS PATSY Administration - Exam General Appearance: NAD, awake alert Eye: PERRL, anicteric sclera ENT: normocephalic atraumatic, no oropharyngeal lesions, moist mucosa Neck: supple, symmetric, no JVD, no thyromegaly, no lymphadenopathy, no carotid bruit Heart: RRR, no murmur, no gallops, no rubs, normal peripheral pulses Respiratory: CTAB, no wheezes, no rales, no ronchi, normal chest expansion, no tachypnea, normal percussion Gastrointestinal: soft, non-distended, normal bowel sounds, no palpable masses, no hepatomegaly, no splenomegaly, no bruit Gastrointestinal - other findings: left sided abdominal tenderness to palpation Extremities: no cyanosis, no clubbing, no edema Skin: normal turgor, no lesions, no rashes Neurological: cranial nerve grossly intact, normal sensation to touch, no weakness, no focal deficits, no new deficit Musculoskeletal: normal tone, normal strength, no muscle wasting Psychiatric: normal affect, normal behavior, A&O x 3 Hosp A/P (1) Superior mesenteric vein thrombosis Code(s): K55.069 - ACUTE INFARCTION OF INTESTINE, PART AND EXTENT UNSPECIFIED Status: Acute (2) Decompensated hepatic cirrhosis Code(s): K72.90 - HEPATIC FAILURE, UNSPECIFIED WITHOUT COMA Status: Acute (3) HTN (hypertension) Code(s): I10 - ESSENTIAL (PRIMARY) HYPERTENSION Status: Acute (4) Hypothyroidism Code(s): E03.9 - HYPOTHYROIDISM, UNSPECIFIED Status: Acute (5) Depression Code(s): F32.9 - MAJOR DEPRESSIVE DISORDER, SINGLE EPISODE, UNSPECIFIED Status : Acute - Plan Continue with heparin drip. She is a very poor surgical candidate if the bowel infarcts. Surgery is aware of patient but no formal consult for now. Discussed with GI, plan is to possible switch in the coming days on NOAC of choice. Will continue other medication for chronic conditions including lactulose, levothyroxine, trazodone, lasix, sprinolactone, and effexor Continue to trend daily lactic acid and WBCs, improving Continue ciprofloxacin for SBP prophylaxis Disposition: Continue heparin drip for today, will switch to Elliquis tomorrow. If ok with GI can d/c in next 24 to 48 hrs.
[2019-03-29] MEDS: Spironolactone 25 MG TAB PO SCH ×2 (11:34→15:36)
[2019-03-29 11:46] LABS: PTT 222.3 SEC (22.9-36.1)
--- NOTE | 2019-03-29 16:14 | PRG ---
DATE OF SERVICE: 03/29/2019 SUBJECTIVE: This is a 68-year-old female with chronic liver disease, hospitalized for abdominal pain, was found to have evidence of venous thrombosis. The CAT scan showed thrombus in the SMV and portal vein. She is on IV heparin. Her abdominal pain is improving slowly but steadily. She is tolerating clear liquid diet. She was passing a large amount of flatus and had stool yesterday, but today she had only one stool. She has mild nausea this morning. She had no vomiting. PHYSICAL EXAMINATION: GENERAL: Appears comfortable. VITAL SIGNS: Stable, afebrile, pulse is 68, blood pressure 98/66. CARDIOVASCULAR: First and second heart sounds heard. LUNGS: Clear to auscultation. ABDOMEN: Soft compared to yesterday. Abdomen is mildly tender. Tenderness is much less than before. She has active bowel sounds. LABORATORY DATA: From today, CBC; WBC 8600, hemoglobin 11.7, hematocrit 32.3, platelet count only 82,000. Chem-7 is normal. Potassium slightly over 3.4, calcium is 7.5, BUN is 8. CLINICAL IMPRESSION: 1. Liver cirrhosis, portal hypertension. 2. Venous thrombosis of the SMV and also portal veins, on heparin. 3. Abdominal pain, most likely from venous thrombosis, but her abdominal pain is markedly improved. Abdomen is actually lot softer and less distended. RECOMMENDATIONS: 1. Advance diet to full liquid diet today. 2. Continue heparin, may consider switching over to Lovenox or oral anticoagulation. Dr. Murphy will assume care from tomorrow. Job ID: [id number]
[2019-03-29] MEDS: Venlafaxine XR 37.5 MG CAP PO SCH (20:42)
[2019-03-29] MEDS: Morphine 4 MG/ML VIAL SLOW IVP PRN (20:42)
[2019-03-29] MEDS: traZODone HCl 50 MG TAB PO SCH (20:42)
[2019-03-30] MEDS: Lactated Ringer's 1,000 ML IV SCH ×2 (00:58→13:21)
[2019-03-30 03:21] LABS: #Eosinphils 0.5 thou/uL (0.0-0.7); #Lymphocytes 1.5 thou/uL (1.20-3.40); #Monocytes 0.7 thou/uL (0.11-0.59); #Neutrophils 5.8 thou/uL (1.40-6.50); %Basophils 0.6 % (0.0-1.0); %Eosinophils 5.7 % (0.0-10.0); %Lymphocytes 17.2 % (21.0-51.0); %Monocytes 7.6 % (0.0-10.0); %Neutrophils 68.8 % (42.0-75.0); Hemoglobin 11.4 g/dL (12.0-16.0); Mean Corpuscular HGB CONC 33.2 g/dL (32.0-36.0); Mean Corpuscular Hemoglobin 35.9 pg (27.0-31.0); Platelet Count 180 thou/uL (130-400); RBC Distribution Width 13.6 % (11.5-14.5); Red Blood Cell (RBC) Count 3.17 mill/uL (4.20-5.40); White Blood Cell (WBC) Count 8.5 thou/uL (4.8-10.8)
[2019-03-30 03:31] LABS: PTT 115.1 SEC (22.9-36.1)
[2019-03-30 03:43] LABS: Anion Gap 5 mmol/L (10-20); BUN (Urea Nitrogen) 7 mg/dL (9.8-20.1); Calc. Creatinine Clearance 80 mL/min (70-130); Calcium 7.3 mg/dL (7.8-10.44); Carbon Dioxide 29 mmol/L (23-31); Chloride 102 mmol/L (98-107); Estimated GFR-MDRD 71; Glucose 128 mg/dL (80-115); Potassium 3.3 mmol/L (3.5-5.1); Sodium 133 mmol/L (136-145)
[2019-03-30] MEDS: Heparin 25,000 units/D5W 500 ML IV SCH (04:35)
[2019-03-30] MEDS: Levothyroxine 150 MCG TAB PO SCH (05:16)
[2019-03-30] MEDS: Calcium Carbonate 500 MG ChewTAB PO PRN (05:16)
[2019-03-30] MEDS: Apixaban 5 MG TAB PO SCH ×2 (10:01→21:00)
[2019-03-30] MEDS: Furosemide 20 MG TAB PO SCH (10:02)
[2019-03-30] MEDS: Potassium Chloride 10 MEQ TAB PO SCH (10:02)
[2019-03-30] MEDS: Loratadine 10 MG TAB PO SCH (10:02)
[2019-03-30] MEDS: Spironolactone 25 MG TAB PO SCH ×3 (10:02→17:33)
[2019-03-30] MEDS: Propranolol HCl 20 MG TAB PO SCH ×2 (10:03→20:59)
[2019-03-30 13:16] LABS: Actual Bicarbonate (HCO3a) 23.5 mEq/L (22-28); CO2 Tension 43.3 mmHg (35.0-45.0); Calcium, Ionized 1.15 mmol/L (1.12-1.30); Carboxyhemoglobin (COHb) 1.2 gm% (0.0-3.0); Hemoglobin (Hb) 12.7 g/dL (12.0-16.0); O2 Tension (PaO2) 92.4 mmHg (> 70.0); Potassium - ABG Lab 3.46 mmol/L (3.70-5.30); pH, Arterial 7.35 (7.35-7.45)
[2019-03-30 13:17] LABS: ALV-art Gradient 53.115 (0-20); Puncture Site RRA
[2019-03-30] MEDS: Sodium Chloride 0.9% 1,000 ML IV SCH (13:22)
--- NOTE | 2019-03-30 13:57 | RAD ---
Portable chest: HISTORY: Shortness of breath COMPARISON: 01/26/2019 FINDINGS: Lung hogue are clear. Heart and mediastinum appear unremarkable. Vascularity is normal. Visualized osseous structures unremarkable. IMPRESSION: No acute finding
[2019-03-30] MEDS ORDERED: cefTRIAXone Sodium 2,000 MG in Syringe 0 ML IVPB SCH (14:00)
[2019-03-30] MEDS: Ipratropium Oral Inhaler INH SCH ×2 (14:26→19:14)
[2019-03-30] MEDS: cefTRIAXone\\ROCEPHIN 2 GM in Sodium Chloride 0.9% 100 ML IVPB SCH (14:57)
--- NOTE | 2019-03-30 16:42 | PRG ---
DATE OF SERVICE: 03/30/2019 SUBJECTIVE: Ms. Busch states that her belly pain is better than when she came in. She is eating a liquid diet. Would like to have a little more maybe. Her nurses told me that she has been started on Eliquis and her heparin drip has been stopped. This was started for findings of a partially occlusive thrombus in the SMV and in the main portal vein and ascites. She was placed on empiric treatment for possible SBP. She did not have a paracentesis this admission. Her pain has improved over the weekend. OBJECTIVE: VITAL SIGNS: Temperature 98.7, pulse 68, blood pressure 114/67. GENERAL: She has petechiae in her skin. She has frail skin. She has muscle wasting. LUNGS: Clear. HEART: Regular rhythm without clicks or murmurs. ABDOMEN: Soft. There is slight protuberant. There is shifting dullness. There is no fluid wave. Bowel sounds are positive. LABORATORY DATA: White count 8.5, hemoglobin 11.4, platelet count 180. Sodium 133, potassium 3.3, BUN and creatinine are 7 and 0.8. Albumin was 2.2. AST 44, bilirubin 1.8, ALT 12. ASSESSMENT: Portal vein thrombosis of unclear etiology. Her CT scan on admission showed no overt hepatomas. She had AFP that was normal in 02/2019 related to portal hypertension. She has been started on anticoagulation. RECOMMENDATION: Despite having EGD tomorrow before we commit to long-term anticoagulation, make sure if there is any significant varices with a platelet count of 180,000 that is probably less likely, but still needs to be checked. We will plan for hep varices screening with EGD tomorrow in light of need for long-term anticoagulation. Job ID: [id number]
--- NOTE | 2019-03-30 16:46 | PDOC.HOSPP ---
- Subjective Subjective: Seen and examined. Follow up on portal vein thrombosis. Has been transition to Eliquis therapy. Having shortness of breath today. Chest x-ray shows no acute cardiothoracic process. ABG on nasal cannula as negative for hypoxia. Patient is diffusely wheezy. Started breathing treatments. Will start steroids. Patient denies history of tobacco use and has never been told she has breathing problems in the past. BNP is on the high end of normal, and again there is no pulmonary edema on chest x-ray so congestive heart failure is unlikely. - Objective Vital Signs & Weight: Vital Signs (12 hours) Temp Pulse Resp BP Pulse Ox 03/30/19 14:26 65 16 95 03/30/19 11:35 98.7 F 68 20 114/67 93 L 03/30/19 08:00 93 L 03/30/19 07:40 97.9 F 68 20 111/63 93 L Weight Weight 170 lb 8 oz I&O: 03/29/19 03/30/19 03/31/19 06:59 06:59 06:59 Intake Total 1198 1914 Balance 1198 1914 Result Diagrams: 03/30/19 03:05 03/30/19 03:05 Radiology Reviewed by me: Yes Hospitalist ROS - Review of Systems All other systems reviewed; all pertinent +/- noted in HPI/Subj - Medication Medications: Active Medications Generic Name Dose Route Start Last Admin Trade Name Freq PRN Reason Stop Dose Admin Apixaban 10 mg 03/30/19 09:00 03/30/19 10:01 Eliquis PO 04/05/19 21:01 10 mg BID PATSY Administration Calcium Carbonate 1,000 mg 03/30/19 03:56 03/30/19 05:16 Tums PO 1,000 mg Q4H PRN Administration Heartburn Furosemide 20 mg 03/28/19 07:30 03/30/19 10:02 Lasix PO 20 mg DAILY-AC PATSY Administration Sodium Chloride 1,000 mls @ 50 mls/hr 03/30/19 13:00 03/30/19 13:22 Normal Saline 0.9% IV 1,000 mls .Q20H PATSY Administration Ceftriaxone Sodium 2 gm/ 100 mls @ 5 mls/hr 03/30/19 14:00 03/30/19 14:57 Sodium Chloride IVPB 100 mls Q24HR PATSY Administration Ipratropium [place] 1 puff 03/30/19 15:00 03/30/19 14:26 Atrovent Hfa INH 1 puff QID-RT PATSY Administration Lactulose 20 gm 03/27/19 21:00 03/30/19 14:58 Lactulose PO 20 gm TID PATSY Administration Levothyroxine Sodium 150 mcg 03/28/19 06:00 03/30/19 05:16 Synthroid PO 150 mcg 0600 PATSY Administration Loratadine 10 mg 03/28/19 09:00 03/30/19 10:02 Claritin PO 10 mg DAILY PATSY Administration Morphine Sulfate 4 mg 03/27/19 03:39 03/29/19 20:42 Morphine SLOW IVP 4 mg Q4H PRN Administration Pain Ondansetron HCl 4 mg 03/27/19 04:17 03/27/19 16:58 Zofran SLOW IVP 4 mg Q6H PRN Administration Nausea/Vomiting Potassium Chloride 10 meq 03/28/19 09:00 03/30/19 10:02 Klor-Con 10 PO 10 meq DAILY PATSY Administration Propranolol HCl 20 mg 03/27/19 21:00 03/30/19 10:03 Inderal PO 20 mg BID PATSY Administration Spironolactone 50 mg 03/29/19 12:00 03/30/19 13:23 Aldactone PO 50 mg TID-WM PATSY Administration Trazodone HCl 50 mg 03/27/19 21:00 03/29/19 20:42 Desyrel PO 50 mg HS PATSY Administration Venlafaxine HCl 37.5 mg 03/27/19 21:00 03/29/19 20:42 Effexor Xr PO 37.5 mg HS PATSY Administration - Exam General Appearance: ill appearing Eye: PERRL ENT: normocephalic atraumatic, moist mucosa Neck: supple, symmetric, no lymphadenopathy Heart: no murmur, no gallops, no rubs Respiratory: no rales, normal chest expansion, no tachypnea, rhonchi, wheezes ( moderate) Gastrointestinal: soft, non-tender, no guarding, no rigidity Extremities: no cyanosis, no edema Skin: no rashes Neurological: cranial nerve grossly intact, no focal deficits Musculoskeletal: generalized weakness Psychiatric: A&O x 3 Hosp A/P (1) Superior mesenteric vein thrombosis Code(s): K55.069 - ACUTE INFARCTION OF INTESTINE, PART AND EXTENT UNSPECIFIED Status: Acute (2) Acute respiratory failure with hypoxia and hypercapnia Code(s): J96.01 - ACUTE RESPIRATORY FAILURE WITH HYPOXIA; J96.02 - ACUTE RESPIRATORY FAILURE WITH HYPERCAPNIA Status: Acute (3) Ascites Code(s): R18.8 - OTHER ASCITES Status: Acute (4) CKD (chronic kidney disease) Code(s): N18.9 - CHRONIC KIDNEY DISEASE, UNSPECIFIED Status: Acute (5) COPD (chronic obstructive pulmonary disease) with acute bronchitis Code(s): J44.0 - CHR OBSTRUCTIVE PULMON DISEASE WITH (ACUTE) LOWER RESP INFCT; J20.9 - ACUTE BRONCHITIS, UNSPECIFIED Status: Acute (6) Coagulopathy Status: Acute (7) HTN (hypertension) Code(s): I10 - ESSENTIAL (PRIMARY) HYPERTENSION Status: Acute (8) Hypoalbuminemia Code(s): E88.09 - OTH DISORDERS OF PLASMA-PROTEIN METABOLISM, NEC Status: Acute - Plan Plan: medical unit gastroenterology consultation, recommendations appreciated general surgery consultation, recommendations appreciated worsening shortness of breath this afternoon chest x-ray negative for focal pneumonia or pulmonary edema BNP at the high end of normal ABG does not demonstrate hypoxia patient is diffusely wheezy change to pulmonary specific antibiotics start steroids COPD has been documented in the past though the patient does deny smoking history placed on oral anticoagulation for portal vein thrombosis, with eliquis cirrhosis of the liver, multifactorial with hepatitis C and smooth muscle antibody positive continue other home medications is able blood pressure control blood sugar control G.I. prophylaxis DVT prophylaxis
[2019-03-30] MEDS ORDERED: Bacteriostatic Water 30 ML VIAL FS PRN (17:16)
[2019-03-30] MEDS: methylPREDNISolone Sod Succ 40 MG VIAL IVP SCH ×2 (17:33→22:55)
[2019-03-30] MEDS: Venlafaxine XR 37.5 MG CAP PO SCH (20:59)
[2019-03-30] MEDS: traZODone HCl 50 MG TAB PO SCH (20:59)
[2019-03-30] MEDS: Morphine 4 MG/ML VIAL SLOW IVP PRN (20:59)
[2019-03-31] MEDS: Propranolol HCl 20 MG TAB PO SCH ×2 (05:35→21:28)
[2019-03-31] MEDS: methylPREDNISolone Sod Succ 40 MG VIAL IVP SCH ×3 (05:35→17:19)
[2019-03-31] MEDS: Levothyroxine 150 MCG TAB PO SCH (05:35)
[2019-03-31] MEDS: Calcium Carbonate 500 MG ChewTAB PO PRN ×2 (05:44→22:23)
[2019-03-31] MEDS: Ipratropium Oral Inhaler INH SCH ×4 (06:52→19:25)
[2019-03-31] MEDS: Spironolactone 25 MG TAB PO SCH ×3 (09:02→15:14)
[2019-03-31] MEDS: Potassium Chloride 10 MEQ TAB PO SCH (09:02)
[2019-03-31] MEDS: Loratadine 10 MG TAB PO SCH (09:02)
[2019-03-31] MEDS: Furosemide 20 MG TAB PO SCH (09:02)
[2019-03-31] MEDS: Sodium Chloride 0.9% 1,000 ML IV SCH (09:03)
[2019-03-31] MEDS: Apixaban 5 MG TAB PO SCH (09:03)
[2019-03-31] MEDS ORDERED: PROPOFOL 200 MG/20 ML VIAL ONE (11:33)
[2019-03-31] MEDS ORDERED: Lidocaine 1% PF 5 ML VIAL ONE (11:33)
--- NOTE | 2019-03-31 11:59 | PQF ---
DATE: 03-31-19 ATTN: DR. BASIA AQUINO Please exercise your independent, professional judgment in responding to the clarification form. Clinical indicators are provided on the bottom of this form for your review Please check appropriate box(s): [ ] Hyponatremia [ XX ] Insignificant Lab Values [ ] Other diagnosis [ ] Unable to determine In addition, please specify: Present on Admission (POA): [ XX ] Yes [ ] No [ ] Unable to determine For continuity of documentation, please document condition throughout progress notes and discharge summary. Thank You. CLINICAL INDICATORS - SIGNS / SYMPTOMS/ LABS are present in the medical record: SODIUM: 03-26-19: 135 03-27-19: 136 03-28-19: 134 03-29-19: 133 03-30-19: 133 ER NOTES 03-26-19: ABD PAIN, VOMITING, BODY ACHES, UNABLE TO KEEP FLUIDS DOWN, LIVER CIRRHOSIS RISK FACTORS: ER NOTES 03-26-19: ABD PAIN, VOMITING, BODY ACHES, UNABLE TO KEEP FLUIDS DOWN, LIVER CIRRHOSIS TREATMENT: ER NOTES 03-26-19: NS IVF, ONDANSETRON HCL IV SERIES OF LABS 03-26-19 TO 03-30-19 (This form is maintained as a part of the permanent medical record) 2014 [employer], [email or web address]. All Rights Reserved LIZBETH [email or web address] Office: [phone] AMANDA
[2019-03-31] MEDS ORDERED: Promethazine HCl 25 MG/ML VIAL IM PRN (12:22)
[2019-03-31] MEDS ORDERED: Promethazine HCl 25 MG/ML VIAL SLOW IVP PRN (12:22)
[2019-03-31] MEDS ORDERED: Ondansetron HCl/PF 4 MG/2 ML Vial IVP PRN (12:22)
[2019-03-31] MEDS ORDERED: Fentanyl 100 MCG/2 ML VIAL ONE (12:51)
--- NOTE | 2019-03-31 12:58 | PDOC.HOSPP ---
- Subjective Subjective: Seen and examined. Patient feeling much better today. Breathing better. She is NPO for EGD. I have adjusted her antibiotics yesterday for coverage of pulmonary organisms in addition to spontaneous bacterial peritonitis. Patient with ascites from cirrhosis on admission. Time was given questions, all answered in detail. - Objective Vital Signs & Weight: Vital Signs (12 hours) Temp Pulse Resp BP BP Pulse Ox 03/31/19 08:00 97 03/31/19 07:29 98 F 64 19 98/67 97 03/31/19 03:56 97.9 F 63 16 122/80 92 L Weight Weight 170 lb 8 oz I&O: 03/30/19 03/31/19 04/01/19 06:59 06:59 06:59 Intake Total 1913 1080 Balance 1913 1080 Result Diagrams: 03/30/19 03:05 03/30/19 03:05 Radiology Reviewed by me: Yes Hospitalist ROS - Review of Systems All other systems reviewed; all pertinent +/- noted in HPI/Subj - Medication Medications: Active Medications Generic Name Dose Route Start Last Admin Trade Name Freq PRN Reason Stop Dose Admin Apixaban 10 mg 03/30/19 09:00 03/31/19 09:03 Eliquis PO 04/05/19 21:01 Not Given BID PATSY Calcium Carbonate 1,000 mg 03/30/19 03:56 03/31/19 05:44 Tums PO 1,000 mg Q4H PRN Administration Heartburn Furosemide 20 mg 03/28/19 07:30 03/31/19 09:02 Lasix PO 20 mg DAILY-AC PATSY Administration Sodium Chloride 1,000 mls @ 50 mls/hr 03/30/19 13:00 03/31/19 09:03 Normal Saline 0.9% IV 1,000 mls .Q20H PATSY Administration Ceftriaxone Sodium 2 gm/ 100 mls @ 5 mls/hr 03/30/19 14:00 03/30/19 14:57 Sodium Chloride IVPB 100 mls Q24HR PATSY Administration Ipratropium [place] 1 puff 03/30/19 15:00 03/31/19 11:01 Atrovent Hfa INH 1 puff QID-RT PATSY Administration Lactulose 20 gm 03/27/19 21:00 03/31/19 09:02 Lactulose PO 20 gm TID PATSY Administration Levothyroxine Sodium 150 mcg 03/28/19 06:00 03/31/19 05:35 Synthroid PO 150 mcg 0600 PATSY Administration Loratadine 10 mg 03/28/19 09:00 03/31/19 09:02 Claritin PO 10 mg DAILY PATSY Administration Methylprednisolone Sodium Succinate 40 mg 03/30/19 18:00 03/31/19 12:10 Solu-Medrol IVP Not Given Q6HR PATSY Morphine Sulfate 4 mg 03/27/19 03:39 03/30/19 20:59 Morphine SLOW IVP 4 mg Q4H PRN Administration Pain Ondansetron HCl 4 mg 03/27/19 04:17 03/27/19 16:58 Zofran SLOW IVP 4 mg Q6H PRN Administration Nausea/Vomiting Potassium Chloride 10 meq 03/28/19 09:00 03/31/19 09:02 Klor-Con 10 PO 10 meq DAILY PATSY Administration Propranolol HCl 20 mg 03/27/19 21:00 03/31/19 05:35 Inderal PO 20 mg BID PATSY Administration Spironolactone 50 mg 03/29/19 12:00 03/31/19 12:10 Aldactone PO Not Given TID-WM PATSY Trazodone HCl 50 mg 03/27/19 21:00 03/30/19 20:59 Desyrel PO 50 mg HS PATSY Administration Venlafaxine HCl 37.5 mg 03/27/19 21:00 03/30/19 20:59 Effexor Xr PO 37.5 mg HS PATSY Administration - Exam General Appearance: NAD, awake alert Eye: anicteric sclera ENT: normocephalic atraumatic, moist mucosa Neck: symmetric, no lymphadenopathy Heart: no murmur, no gallops, no rubs Respiratory: no rales, no ronchi, normal chest expansion, wheezes ( significantly improved) Gastrointestinal: soft, non-tender, no guarding, no rigidity, distended Extremities: 1+ LE edema Skin: no rashes Neurological: cranial nerve grossly intact, no weakness Musculoskeletal: generalized weakness Psychiatric: normal behavior, A&O x 3 Hosp A/P (1) Superior mesenteric vein thrombosis Code(s): K55.069 - ACUTE INFARCTION OF INTESTINE, PART AND EXTENT UNSPECIFIED Status: Acute (2) Acute respiratory failure with hypoxia and hypercapnia Code(s): J96.01 - ACUTE RESPIRATORY FAILURE WITH HYPOXIA; J96.02 - ACUTE RESPIRATORY FAILURE WITH HYPERCAPNIA Status: Acute (3) Ascites Code(s): R18.8 - OTHER ASCITES Status: Acute (4) CKD (chronic kidney disease) Code(s): N18.9 - CHRONIC KIDNEY DISEASE, UNSPECIFIED Status: Acute (5) COPD (chronic obstructive pulmonary disease) with acute bronchitis Code(s): J44.0 - CHR OBSTRUCTIVE PULMON DISEASE WITH (ACUTE) LOWER RESP INFCT; J20.9 - ACUTE BRONCHITIS, UNSPECIFIED Status: Acute (6) Coagulopathy Status: Acute (7) HTN (hypertension) Code(s): I10 - ESSENTIAL (PRIMARY) HYPERTENSION Status: Acute (8) Hypoalbuminemia Code(s): E88.09 - OTH DISORDERS OF PLASMA-PROTEIN METABOLISM, NEC Status: Acute - Plan Plan: medical unit gastroenterology consultation, recommendations appreciated general surgery consultation, recommendations appreciated EGD pending, hold oral anticoagulation May need longterm anticoagulation for portal system thrombosis Current ABX has coverage for SBP chest x-ray negative for focal pneumonia or pulmonary edema BNP at the high end of normal ABG does not demonstrate hypoxia Wheezing improving change to pulmonary specific antibiotics/ will have coverage for SBP also Consider paracentesis per GI Steroids, wean COPD has been documented in the past though the patient does deny smoking history placed on oral anticoagulation for portal vein thrombosis, with eliquis cirrhosis of the liver, multifactorial with hepatitis C and smooth muscle antibody positive continue other home medications is able blood pressure control blood sugar control G.I. prophylaxis DVT prophylaxis
[2019-03-31] MEDS: cefTRIAXone\\ROCEPHIN 2 GM in Sodium Chloride 0.9% 100 ML IVPB SCH (15:14)
--- NOTE | 2019-03-31 16:18 | OP ---
DATE OF PROCEDURE: 03/31/2019 PROCEDURE PERFORMED: Esophagogastroduodenoscopy (diagnostic). INDICATIONS FOR PROCEDURE: Personal history of cirrhosis of the liver, screening for esophageal varices. DESCRIPTION OF PROCEDURE: After the risks and benefits of the procedure were explained to the patient including risks of bleeding, infection, perforation, reactions to anesthesia, aspiration and/or pain, informed consent was obtained. The patient was then taken to the endoscopy suite and placed in the left lateral decubitus position followed by administration of propofol via anesthesia support. Once adequate sedation was achieved, the standard gastroscope was introduced into the mouth with intubation of the esophagus, stomach, and the proximal small intestines with the findings listed below. The patient tolerated the procedure well with no immediate perioperative complications. Upon conclusion of the procedure, all equipment was removed from the patient and she was transferred to PACU in satisfactory condition. FINDINGS: Esophagus: Normal-appearing mucosa was seen in the proximal and mid esophagus; however, large (grade 3) esophageal varices were seen in the distal esophagus, but did not display any evidence of active or recent bleeding nor did they display any high-risk stigmata of bleeding. Otherwise, there was no evidence of erosions, ulcerations, mass lesions, or active/recent bleeding. No intervention was taken on the distal esophageal varices given full anticoagulation that the patient is currently on with Eliquis given this morning. Stomach: Increased mucosal erythema in a mosaic type pattern was seen in the gastric cardia, fundus, and body with a lesser extent in the antrum and incisura. This increased mucosal erythema did exhibit overlying clot material in a linear type fashion, but upon aggressive irrigation and suctioning, did not reveal any evidence of active bleeding in the gastric fundus. There were 2 areas of mild oozing of blood within the gastric body, but again no intervention was taken at this time. Otherwise, there was no evidence of erosions, ulcerations, or mass lesions throughout the entire stomach. There was no gastric varices on gastric retroflexion. Duodenum: Normal-appearing mucosa was seen in both the duodenal bulb and second portion of the duodenum. There was no evidence of erosions, ulcerations, mass lesions, or active/recent bleeding. IMPRESSION: 1. Large (grade 3) distal esophageal varices without any high-risk stigmata of bleeding. 2. No evidence of gastric varices. 3. [id number] portal hypertensive gastropathy. RECOMMENDATIONS: 1. Would continue with aggressive antiemetic protocol given the patient's recent nausea and vomiting. 2. Continue current bowel regimen to prevent constipation that could further exacerbate nausea and vomiting. 3. Would consider placing the patient on nonselective beta blockers if able given her large distal esophageal varices in light of cirrhosis of the liver. I would recommend titrating to a heart rate of 55 to 65 beats per minute or a systolic blood pressure greater than 100 mmHg. 4. Would continue to trend her hemoglobin and hematocrit and transfuse as necessary to maintain hemoglobin and hematocrit of 7/21 given evidence of mild oozing of blood while on full anticoagulation. 5. Pain control per primary team. We will continue to follow. Please call with any questions. Job ID: [id number]
[2019-03-31] MEDS: traZODone HCl 50 MG TAB PO SCH (21:28)
[2019-03-31] MEDS: Enoxaparin Sodium 80 MG/0.8 ML SYRINGE SC SCH (21:28)
[2019-03-31] MEDS: Venlafaxine XR 37.5 MG CAP PO SCH (21:28)
[2019-03-31] MEDS: Morphine 4 MG/ML VIAL SLOW IVP PRN (22:23)
[2019-04-01] MEDS: methylPREDNISolone Sod Succ 40 MG VIAL IVP SCH ×2 (00:31→06:16)
[2019-04-01 05:49] LABS: Hemoglobin 12.2 g/dL (12.0-16.0); Platelet Count 150 thou/uL (130-400)
[2019-04-01] MEDS: Levothyroxine 150 MCG TAB PO SCH (06:16)
[2019-04-01] MEDS: Sodium Chloride 0.9% 1,000 ML IV SCH (06:16)
[2019-04-01] MEDS: Ipratropium Oral Inhaler INH SCH ×4 (06:50→19:14)
[2019-04-01] MEDS: Spironolactone 25 MG TAB PO SCH ×3 (08:31→17:11)
[2019-04-01] MEDS: Furosemide 20 MG TAB PO SCH ×2 (08:31→14:19)
[2019-04-01] MEDS: Potassium Chloride 10 MEQ TAB PO SCH ×2 (08:31→17:11)
[2019-04-01] MEDS: Loratadine 10 MG TAB PO SCH (08:31)
[2019-04-01] MEDS: Propranolol HCl 20 MG TAB PO SCH ×2 (08:31→21:18)
[2019-04-01] MEDS: Enoxaparin Sodium 80 MG/0.8 ML SYRINGE SC SCH ×2 (08:32→21:18)
--- NOTE | 2019-04-01 12:01 | PDOC.HOSPP ---
- Subjective Encounter Date: 04/01/19 Encounter Time: 12:00 Subjective: Patient seen and examined for Abd pain. s/p EGD. SOB improving. No N/V. No overnight events - Objective Vital Signs & Weight: Vital Signs (12 hours) Temp Pulse Resp BP BP Pulse Ox 04/01/19 08:30 97.5 F L 60 20 125/66 98 04/01/19 08:00 98 04/01/19 04:00 97.7 F 61 18 119/76 97 Weight Weight 170 lb 8 oz I&O: 03/31/19 04/01/19 04/02/19 06:59 06:59 06:59 Intake Total 1080 720 400 Balance 1080 720 400 Result Diagrams: 04/01/19 05:20 04/01/19 05:20 Radiology Reviewed by me: Yes (CT abd - reviwed) Hospitalist ROS - Review of Systems Respiratory: reports: SOB with excertion. denies: cough, dry, shortness of breath, hemoptysis, pleuritic pain, sputum, wheezing, other Genitourinary: denies: dysuria, frequency, incontinence, hematuria, retention, other - Medication Medications: Active Medications Generic Name Dose Route Start Last Admin Trade Name Freq PRN Reason Stop Dose Admin Calcium Carbonate 1,000 mg 03/30/19 03:56 03/31/19 22:23 Tums PO 1,000 mg Q4H PRN Administration Heartburn Enoxaparin Sodium 80 mg 03/31/19 21:00 04/01/19 08:32 Lovenox SC 80 mg 0900,2100 PATSY Administration Ceftriaxone Sodium 2 gm/ 100 mls @ 5 mls/hr 03/30/19 14:00 03/31/19 15:14 Sodium Chloride IVPB 100 mls Q24HR PATSY Administration Ipratropium [place] 1 puff 03/30/19 15:00 04/01/19 10:50 Atrovent Hfa INH 1 puff QID-RT PATSY Administration Lactulose 20 gm 03/27/19 21:00 04/01/19 08:32 Lactulose PO 20 gm TID PATSY Administration Levothyroxine Sodium 150 mcg 03/28/19 06:00 04/01/19 06:16 Synthroid PO 150 mcg 0600 PATSY Administration Loratadine 10 mg 03/28/19 09:00 04/01/19 08:31 Claritin PO 10 mg DAILY PATSY Administration Morphine Sulfate 4 mg 03/27/19 03:39 03/31/19 22:23 Morphine SLOW IVP 4 mg Q4H PRN Administration Pain Ondansetron HCl 4 mg 03/27/19 04:17 03/27/19 16:58 Zofran SLOW IVP 4 mg Q6H PRN Administration Nausea/Vomiting Propranolol HCl 20 mg 03/27/19 21:00 04/01/19 08:31 Inderal PO 20 mg BID PATSY Administration Spironolactone 50 mg 03/29/19 12:00 04/01/19 08:31 Aldactone PO 50 mg TID-WM PATSY Administration Trazodone HCl 50 mg 03/27/19 21:00 03/31/19 21:28 Desyrel PO 50 mg HS PATSY Administration Venlafaxine HCl 37.5 mg 03/27/19 21:00 03/31/19 21:28 Effexor Xr PO 37.5 mg HS PATSY Administration - Exam General Appearance: NAD Heart: RRR, no gallops Respiratory: no rales, no ronchi Gastrointestinal: soft, normal bowel sounds Gastrointestinal - other findings: mild gen tenderness - mainly in LLQ Extremities: no cyanosis Hosp A/P - Plan DVT proph w/lovenox, DVT proph w/SCDs 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
[2019-04-01] MEDS: cefTRIAXone\\ROCEPHIN 2 GM in Sodium Chloride 0.9% 100 ML IVPB SCH (12:27)
--- NOTE | 2019-04-01 13:33 | PRG ---
DATE OF SERVICE: 04/01/2019 SUBJECTIVE: Ms. Busch is feeling pretty well today. She continues to have some abdominal discomfort in the left lower quadrant, which she rates as 6/10. She is having good bowel movements. She has no nausea. She is tolerating her full liquid diet really well. OBJECTIVE: VITAL SIGNS: Temperature 97.5, pulse 60, blood pressure 125/66, and 98% oxygen saturation on 2 L nasal cannula. GENERAL: In no acute distress. HEART: Regular rate and rhythm. LUNGS: Bibasilar crackles. No wheezing. ABDOMEN: Mild distention. Dull to percussion. Bowel sounds are present. Soft and nontender to palpation. EXTREMITIES: No peripheral edema. LABORATORY STUDIES: Hemoglobin 12.2, hematocrit 37.5, and platelets 150. INR 1.5. Creatinine 1.14, up from 0.80. BNP is 160.9. ASSESSMENT AND PLAN: 1. End-stage liver disease. 2. 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 3. Portal hypertension. 4. Ascites. 5. Grade 3 distal esophageal varices. I discussed the case with Dr. Macario. The patient is going to need long-term anticoagulation, it seems. She will be started on lower-dose Eliquis 2.5 mg b.i.d. She should also continue on her propranolol as nonselective beta mandie, prophylaxis against variceal hemorrhage. Her diuretics are also being adjusted. Given her overall status, frailty, and comorbidities, palliative care consultation would be reasonable. I am going to advance the patient's diet, needs to be on a low-sodium diet. Please call anytime with questions or concerns. Job ID: [id number]
[2019-04-01] MEDS ORDERED: Ipratropium Bromide 2.5 ml Neb NEB SCH (14:30)
[2019-04-01] MEDS: Calcium Carbonate 500 MG ChewTAB PO PRN (18:28)
[2019-04-01] MEDS: Morphine 4 MG/ML VIAL SLOW IVP PRN (18:28)
[2019-04-01] MEDS: traZODone HCl 50 MG TAB PO SCH (21:18)
[2019-04-01] MEDS: Venlafaxine XR 37.5 MG CAP PO SCH (21:18)
[2019-04-02] MEDS: Levothyroxine 150 MCG TAB PO SCH (05:26)
[2019-04-02 05:50] LABS: Platelet Count 130 thou/uL (130-400)
[2019-04-02 06:17] LABS: ALT (SGPT) 11 U/L (8-55); AST (SGOT) 20 U/L (5-34); Alkaline Phosphatase 64 U/L (40-110); Anion Gap 9 mmol/L (10-20); BUN (Urea Nitrogen) 13 mg/dL (9.8-20.1); Bilirubin, Total 0.7 mg/dL (0.2-1.2); Calc. Creatinine Clearance 50 mL/min (70-130); Calcium 8.1 mg/dL (7.8-10.44); Carbon Dioxide 25 mmol/L (23-31); Chloride 105 mmol/L (98-107); Estimated GFR-MDRD 41; Globulin 4.2 g/dL (2.4-3.5); Glucose 119 mg/dL (80-115); Magnesium 1.4 mg/dL (1.6-2.6); Potassium 4.5 mmol/L (3.5-5.1); Protein, Total 6.2 g/dL (6.0-8.3); Sodium 134 mmol/L (136-145)
[2019-04-02] MEDS: Ipratropium Oral Inhaler INH SCH ×4 (06:51→19:00)
[2019-04-02] MEDS ORDERED: Magnesium Sulfate 4 GM in Sodium Chloride 0.9% 250 ML 250 ML IVPB SCH (09:00)
[2019-04-02] MEDS: Spironolactone 25 MG TAB PO SCH ×3 (09:15→16:37)
[2019-04-02] MEDS: Potassium Chloride 10 MEQ TAB PO SCH ×2 (09:15→16:38)
[2019-04-02] MEDS: Propranolol HCl 20 MG TAB PO SCH ×2 (09:16→20:48)
[2019-04-02] MEDS: Furosemide 20 MG TAB PO SCH ×2 (09:16→14:49)
[2019-04-02] MEDS: Loratadine 10 MG TAB PO SCH (09:16)
[2019-04-02] MEDS: Apixaban 2.5 MG TAB PO SCH ×2 (09:19→20:48)
--- NOTE | 2019-04-02 12:23 | PRG ---
DATE OF SERVICE: 04/02/2019 SUBJECTIVE: Ms. Busch is feeling okay today. There is no abdominal pain or nausea. She tolerated her breakfast and is looking forward to lunch. OBJECTIVE: VITAL SIGNS: Temperature 98.1, pulse 90, blood pressure 129/80, and 98% oxygen saturation on 2 L nasal cannula. GENERAL: No acute distress. HEART: Regular rate and rhythm. LUNGS: Clear to auscultation bilaterally. ABDOMEN: Bowel sounds present. Mild distention. Nontender to palpation. EXTREMITIES: No peripheral edema. LABORATORY STUDIES: Hemoglobin 11.0, hematocrit 33.4, and platelets 130. Sodium 134, potassium 4.5, BUN 13, and creatinine 1.28. Total bilirubin 0.7, alkaline phosphatase 64, AST 20, and ALT 11. BNP is 160.9. ASSESSMENT AND PLAN: 1. End-stage liver disease. 2. 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 3. Portal hypertension. 4. Ascites. 5. Grade 3 distal esophageal varices. The patient is now started on Eliquis 2.5 mg b.i.d. Also continue propranolol as prophylaxis against variceal hemorrhage. No other new recommendations from a GI perspective. We can have her follow up in clinic in the next month or so. GI will sign off, but please call back anytime with questions or concerns. Job ID: [id number]
[2019-04-02] MEDS: Morphine 4 MG/ML VIAL SLOW IVP PRN (12:54)
--- NOTE | 2019-04-02 14:06 | PDOC.HOSPP ---
- Subjective Encounter Date: 04/02/19 Encounter Time: 14:05 Subjective: Patient seen and examined for SMV thrombosis. Abd pain improving. No N/V. No new complaints. No overnight events - Objective Vital Signs & Weight: Vital Signs (12 hours) Temp Pulse Resp BP BP Pulse Ox 04/02/19 12:19 96 04/02/19 12:00 97.9 F 62 16 120/70 04/02/19 08:00 98.1 F 90 18 129/80 98 04/02/19 04:00 97.8 F 66 18 118/75 98 Weight Weight 170 lb 8 oz I&O: 04/01/19 04/02/19 04/03/19 06:59 06:59 06:59 Intake Total 720 1360 Balance 720 1360 Result Diagrams: 04/02/19 05:29 04/02/19 05:29 Hospitalist ROS - Review of Systems Respiratory: denies: cough, dry, shortness of breath, hemoptysis, SOB with excertion, pleuritic pain, sputum, wheezing, other Cardiovascular: denies: chest pain, palpitations, orthopnea, paroxysmal noc. dyspnea, edema, light headedness, other - Medication Medications: Active Medications Generic Name Dose Route Start Last Admin Trade Name Freq PRN Reason Stop Dose Admin Apixaban 2.5 mg 04/02/19 09:00 04/02/19 09:19 Eliquis PO 2.5 mg BID PATSY Administration Calcium Carbonate 1,000 mg 03/30/19 03:56 04/01/19 18:28 Tums PO 1,000 mg Q4H PRN Administration Heartburn Furosemide 20 mg 04/01/19 14:00 04/02/19 09:16 Lasix PO 20 mg 0900,1400 PATSY Administration Ceftriaxone Sodium 2 gm/ 100 mls @ 5 mls/hr 03/30/19 14:00 04/01/19 12:27 Sodium Chloride IVPB 100 mls Q24HR PATSY Administration Ipratropium [place] 1 puff 03/30/19 15:00 04/02/19 10:50 Atrovent Hfa INH 1 puff QID-RT PATSY Administration Lactulose 20 gm 03/27/19 21:00 04/02/19 09:15 Lactulose PO 20 gm TID PATSY Administration Levothyroxine Sodium 150 mcg 03/28/19 06:00 04/02/19 05:26 Synthroid PO 150 mcg 0600 PATSY Administration Loratadine 10 mg 03/28/19 09:00 04/02/19 09:16 Claritin PO 10 mg DAILY PATSY Administration Ondansetron HCl 4 mg 03/27/19 04:17 03/27/19 16:58 Zofran SLOW IVP 4 mg Q6H PRN Administration Nausea/Vomiting Potassium Chloride 10 meq 04/01/19 17:00 04/02/19 09:15 Klor-Con 10 PO 10 meq BID-WM PATSY Administration Propranolol HCl 20 mg 03/27/19 21:00 04/02/19 09:16 Inderal PO 20 mg BID PATSY Administration Spironolactone 50 mg 03/29/19 12:00 04/02/19 12:47 Aldactone PO 50 mg TID-WM PATSY Administration Trazodone HCl 50 mg 03/27/19 21:00 04/01/19 21:18 Desyrel PO 50 mg HS PATSY Administration Venlafaxine HCl 37.5 mg 03/27/19 21:00 04/01/19 21:18 Effexor Xr PO 37.5 mg HS PATSY Administration - Exam General Appearance: NAD Neck: supple, no JVD Heart: no gallops, no rubs Respiratory: no wheezes, no rales, no ronchi Gastrointestinal: soft, normal bowel sounds, no guarding, no rigidity Gastrointestinal - other findings: mild gen tenderness Extremities: no cyanosis Neurological: no new deficit Hosp A/P - Plan Abd pain due to SMV thrombosis - improving Chronic Cirrhosis with Portal HTN/Esophageal varices/Ascites/hypoalbuminemia Hyponatremia/Hypokalemia/Hypomagnesemia Acute hypoxic resp failure HTN Hypothyroidism Diverticulosis PLAN: Eliquis started at 2.5 mg BID - Patient understands the risk associated with anticoagulation Replace Magnesium DC IV Atbx Cont Lasix/Aldactone/Inderal DC IV Morphine Tramadol PRN Cont other meds [facility] setup DC in 24-48 hr if stable
[2019-04-02] MEDS: cefTRIAXone\\ROCEPHIN 2 GM in Sodium Chloride 0.9% 100 ML IVPB SCH (14:48)
[2019-04-02] MEDS: traZODone HCl 50 MG TAB PO SCH (20:48)
[2019-04-02] MEDS: Venlafaxine XR 37.5 MG CAP PO SCH (20:48)
[2019-04-03] MEDS: Calcium Carbonate 500 MG ChewTAB PO PRN (05:06)
[2019-04-03] MEDS: Levothyroxine 150 MCG TAB PO SCH (05:07)
[2019-04-03] MEDS: Ipratropium Oral Inhaler INH SCH ×4 (06:06→19:23)
[2019-04-03] MEDS: Propranolol HCl 20 MG TAB PO SCH ×2 (08:14→20:35)
[2019-04-03] MEDS: Potassium Chloride 10 MEQ TAB PO SCH ×2 (08:14→16:26)
[2019-04-03] MEDS: Furosemide 20 MG TAB PO SCH (08:14)
[2019-04-03] MEDS: Loratadine 10 MG TAB PO SCH (08:14)
[2019-04-03] MEDS: Apixaban 2.5 MG TAB PO SCH ×2 (08:14→20:35)
[2019-04-03] MEDS: Spironolactone 25 MG TAB PO SCH ×3 (08:14→16:26)
[2019-04-03] MEDS: Furosemide 40 MG TAB PO SCH (16:26)
[2019-04-03] MEDS: traMADol HCl 50 MG TAB PO PRN (20:36)
[2019-04-03] MEDS: traZODone HCl 50 MG TAB PO SCH (20:36)
[2019-04-03] MEDS: Venlafaxine XR 37.5 MG CAP PO SCH (20:36)
--- NOTE | 2019-04-03 21:34 | PDOC.HOSPP ---
- Subjective Encounter Date: 04/03/19 Encounter Time: 11:30 Subjective: Patient seen and examined for SMV thrombosis. SOB on mild exertion. No AMS/fever /N/V/bleeding. No other complaints. No overnight events - Objective Vital Signs & Weight: Vital Signs (12 hours) Temp Pulse Resp BP BP Pulse Ox 04/03/19 20:00 98.8 F 68 20 128/81 95 04/03/19 19:24 98 04/03/19 19:23 98 04/03/19 15:18 98.1 F 70 22 H 128/84 95 04/03/19 14:42 65 18 98 04/03/19 12:00 98.1 F 70 22 H 128/84 95 04/03/19 10:55 69 20 96 Weight Weight 170 lb 8 oz I&O: 04/02/19 04/03/19 04/04/19 06:59 06:59 06:59 Intake Total 1360 1680 Balance 1360 1680 Result Diagrams: 04/02/19 05:29 04/02/19 05:29 Hospitalist ROS - Review of Systems Respiratory: denies: cough, dry, shortness of breath, hemoptysis, SOB with excertion, pleuritic pain, sputum, wheezing, other Cardiovascular: denies: chest pain, palpitations, orthopnea, paroxysmal noc. dyspnea, edema, light headedness, other - Medication Medications: Active Medications Generic Name Dose Route Start Last Admin Trade Name Freq PRN Reason Stop Dose Admin Apixaban 2.5 mg 04/02/19 09:00 04/03/19 20:35 Eliquis PO 2.5 mg BID PATSY Administration Calcium Carbonate 1,000 mg 03/30/19 03:56 04/03/19 05:06 Tums PO 1,000 mg Q4H PRN Administration Heartburn Furosemide 40 mg 04/03/19 14:00 04/03/19 16:26 Lasix PO 40 mg 0900,1400 PATSY Administration Ipratropium [place] 1 puff 03/30/19 15:00 04/03/19 19:23 Atrovent Hfa INH 1 puff QID-RT PATSY Administration Lactulose 20 gm 03/27/19 21:00 04/03/19 20:35 Lactulose PO Not Given TID PATSY Levothyroxine Sodium 150 mcg 03/28/19 06:00 04/03/19 05:07 Synthroid PO 150 mcg 0600 [facility] Administration Loratadine 10 mg 03/28/19 09:00 04/03/19 08:14 Claritin PO 10 mg DAILY PATSY Administration Ondansetron HCl 4 mg 03/27/19 04:17 03/27/19 16:58 Zofran SLOW IVP 4 mg Q6H PRN Administration Nausea/Vomiting Potassium Chloride 10 meq 04/01/19 17:00 04/03/19 16:26 Klor-Con 10 PO 10 meq BID-WM [facility] Administration Propranolol HCl 20 mg 03/27/19 21:00 04/03/19 20:35 Inderal PO 20 mg BID [facility] Administration Spironolactone 50 mg 03/29/19 12:00 04/03/19 16:26 Aldactone PO 50 mg TID-[facility] Administration Tramadol HCl 50 mg 04/02/19 14:01 04/03/19 20:36 Ultram PO 50 mg Q8H PRN Administration Moderate Pain (4-6) Trazodone HCl 50 mg 03/27/19 21:00 04/03/19 20:36 Desyrel PO 50 mg HS [facility] Administration Venlafaxine HCl 37.5 mg 03/27/19 21:00 04/03/19 20:36 Effexor Xr PO 37.5 mg HS [facility] Administration - Exam Heart: RRR, no gallops Respiratory: no wheezes, no rales, rhonchi Gastrointestinal: non-tender, normal bowel sounds Extremities: no cyanosis Hosp A/P - Plan Abd pain due to SMV thrombosis - improving Chronic Cirrhosis with Portal HTN/Esophageal varices/Ascites/hypoalbuminemia Hyponatremia/Hypokalemia/Hypomagnesemia Acute hypoxic resp failure HTN Hypothyroidism Diverticulosis PLAN: Cont Eliquis 2.5 mg BID - Patient understands the risk associated with anticoagulation Increase Lasix to 40 BID Cont Aldactone/Inderal Cont other meds SNF eval - Patient not comfortable with [facility] AM labs
[2019-04-04] MEDS: traMADol HCl 50 MG TAB PO PRN ×2 (04:07→16:19)
[2019-04-04 05:32] LABS: Platelet Count 164 thou/uL (130-400)
[2019-04-04] MEDS: Levothyroxine 150 MCG TAB PO SCH (05:43)
[2019-04-04 05:55] LABS: Anion Gap 7 mmol/L (10-20); BUN (Urea Nitrogen) 13 mg/dL (9.8-20.1); Calc. Creatinine Clearance 62 mL/min (70-130); Calcium 8.1 mg/dL (7.8-10.44); Carbon Dioxide 31 mmol/L (23-31); Chloride 101 mmol/L (98-107); Estimated GFR-MDRD 53; Glucose 98 mg/dL (80-115); Magnesium 1.6 mg/dL (1.6-2.6); Potassium 3.9 mmol/L (3.5-5.1); Sodium 135 mmol/L (136-145)
[2019-04-04] MEDS: Ipratropium Oral Inhaler INH SCH ×4 (07:37→19:39)
[2019-04-04] MEDS: Propranolol HCl 20 MG TAB PO SCH ×2 (09:06→20:29)
[2019-04-04] MEDS: Potassium Chloride 10 MEQ TAB PO SCH ×2 (09:06→16:16)
[2019-04-04] MEDS: Loratadine 10 MG TAB PO SCH (09:06)
[2019-04-04] MEDS: Furosemide 40 MG TAB PO SCH ×2 (09:06→13:06)
[2019-04-04] MEDS: Spironolactone 25 MG TAB PO SCH ×3 (09:06→16:15)
[2019-04-04] MEDS: Apixaban 2.5 MG TAB PO SCH ×2 (09:06→20:29)
--- NOTE | 2019-04-04 10:03 | PDOC.HOSPP ---
- Subjective Encounter Date: 04/04/19 Encounter Time: 13:20 Subjective: Patient with abdominal pain coming and going, much better than at admission. Ambulating with assistance more for the past couple days and some new foot edema. - Objective Vital Signs & Weight: Vital Signs (12 hours) Temp Pulse Resp BP BP Pulse Ox 04/04/19 07:38 99.6 F 102 H 19 135/91 H 92 L 04/04/19 04:00 98.0 F 69 20 104/66 93 L 04/04/19 00:00 98.7 F 75 20 110/69 93 L Weight Weight 170 lb 8 oz I&O: 04/03/19 04/04/19 04/05/19 06:59 06:59 06:59 Intake Total 1680 720 Balance 1680 720 Result Diagrams: 04/04/19 05:08 04/04/19 05:08 Hospitalist ROS - Review of Systems Constitutional: denies: fever, chills Respiratory: denies: cough, shortness of breath Cardiovascular: reports: edema. denies: chest pain, palpitations, orthopnea Gastrointestinal: reports: abdominal pain. denies: nausea, vomiting, diarrhea, constipation - Medication Medications: Active Medications Generic Name Dose Route Start Last Admin Trade Name Freq PRN Reason Stop Dose Admin Apixaban 2.5 mg 04/02/19 09:00 04/04/19 09:06 Eliquis PO 2.5 mg BID PATSY Administration Calcium Carbonate 1,000 mg 03/30/19 03:56 04/03/19 05:06 Tums PO 1,000 mg Q4H PRN Administration Heartburn Furosemide 40 mg 04/03/19 14:00 04/04/19 09:06 Lasix PO 40 mg 0900,1400 PATSY Administration Ipratropium [place] 1 puff 03/30/19 15:00 04/04/19 07:37 Atrovent Hfa INH 1 puff QID-RT PATSY Administration Lactulose 20 gm 03/27/19 21:00 04/04/19 09:05 Lactulose PO 20 gm TID PATSY Administration Levothyroxine Sodium 150 mcg 03/28/19 06:00 04/04/19 05:43 Synthroid PO 150 mcg 0600 PATSY Administration Loratadine 10 mg 03/28/19 09:00 04/04/19 09:06 Claritin PO 10 mg DAILY PATSY Administration Ondansetron HCl 4 mg 03/27/19 04:17 03/27/19 16:58 Zofran SLOW IVP 4 mg Q6H PRN Administration Nausea/Vomiting Potassium Chloride 10 meq 04/01/19 17:00 04/04/19 09:06 Klor-Con 10 PO 10 meq BID-WM PATSY Administration Propranolol HCl 20 mg 03/27/19 21:00 04/04/19 09:06 Inderal PO 20 mg BID PATSY Administration Spironolactone 50 mg 03/29/19 12:00 04/04/19 09:06 Aldactone PO 50 mg TID-WM PATSY Administration Tramadol HCl 50 mg 04/02/19 14:01 04/04/19 04:07 Ultram PO 50 mg Q8H PRN Administration Moderate Pain (4-6) Trazodone HCl 50 mg 03/27/19 21:00 04/03/19 20:36 Desyrel PO 50 mg HS PATSY Administration Venlafaxine HCl 37.5 mg 03/27/19 21:00 04/03/19 20:36 Effexor Xr PO 37.5 mg HS PATSY Administration - Exam General Appearance: NAD, awake alert ENT: moist mucosa Heart: RRR, no murmur, no gallops, no rubs Respiratory: CTAB, no wheezes, no rales, no ronchi Gastrointestinal: soft, non-distended, normal bowel sounds, no palpable masses, no hepatomegaly, no splenomegaly, no guarding, no rigidity Gastrointestinal - other findings: mild TTP TRACY/periumbilical region Extremities - other findings: trace edema to feet and ankles Psychiatric: normal affect, normal behavior, A&O x 3 Hosp A/P - Plan 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
[2019-04-04] MEDS: Venlafaxine XR 37.5 MG CAP PO SCH (20:29)
[2019-04-04] MEDS: traZODone HCl 50 MG TAB PO SCH (20:29)
[2019-04-05] MEDS: Levothyroxine 150 MCG TAB PO SCH (05:30)
[2019-04-05 06:46] LABS: Anion Gap 8 mmol/L (10-20); BUN (Urea Nitrogen) 12 mg/dL (9.8-20.1); Calc. Creatinine Clearance 64 mL/min (70-130); Calcium 8.2 mg/dL (7.8-10.44); Carbon Dioxide 32 mmol/L (23-31); Chloride 99 mmol/L (98-107); Estimated GFR-MDRD 55; Glucose 96 mg/dL (80-115); Potassium 3.7 mmol/L (3.5-5.1); Sodium 135 mmol/L (136-145)
[2019-04-05] MEDS: Ipratropium Oral Inhaler INH SCH ×4 (06:57→19:03)
[2019-04-05] MEDS: Propranolol HCl 20 MG TAB PO SCH ×2 (08:10→20:20)
[2019-04-05] MEDS: Furosemide 40 MG TAB PO SCH ×2 (08:11→13:49)
[2019-04-05] MEDS: Loratadine 10 MG TAB PO SCH (08:11)
[2019-04-05] MEDS: Apixaban 2.5 MG TAB PO SCH ×2 (08:11→20:20)
[2019-04-05] MEDS: Spironolactone 25 MG TAB PO SCH ×3 (08:11→16:52)
[2019-04-05] MEDS: Potassium Chloride 10 MEQ TAB PO SCH ×2 (08:11→16:52)
[2019-04-05] MEDS: traMADol HCl 50 MG TAB PO PRN ×2 (09:49→16:50)
--- NOTE | 2019-04-05 15:35 | PDOC.HOSPP ---
- Subjective Encounter Date: 04/05/19 Encounter Time: 08:20 Subjective: abdominal pain is better, no nausea is tolerating oral diet - Objective Vital Signs & Weight: Vital Signs (12 hours) Temp Pulse Resp BP Pulse Ox 04/05/19 11:47 97.9 F 65 20 104/72 94 L 04/05/19 07:41 97.9 F 68 20 106/73 94 L Weight Weight 170 lb 8 oz I&O: 04/04/19 04/05/19 04/06/19 06:59 06:59 06:59 Intake Total 720 240 Balance 720 240 Result Diagrams: 04/04/19 05:08 04/05/19 05:50 Hospitalist ROS - Medication Medications: Active Medications Generic Name Dose Route Start Last Admin Trade Name Freq PRN Reason Stop Dose Admin Apixaban 2.5 mg 04/02/19 09:00 04/05/19 08:11 Eliquis PO 2.5 mg BID PATSY Administration Calcium Carbonate 1,000 mg 03/30/19 03:56 04/03/19 05:06 Tums PO 1,000 mg Q4H PRN Administration Heartburn Furosemide 40 mg 04/03/19 14:00 04/05/19 13:49 Lasix PO 40 mg 0900,1400 PATSY Administration Ipratropium [place] 1 puff 03/30/19 15:00 04/05/19 14:04 Atrovent Hfa INH 1 puff QID-RT PATSY Administration Lactulose 20 gm 03/27/19 21:00 04/05/19 13:48 Lactulose PO Not Given TID PATSY Levothyroxine Sodium 150 mcg 03/28/19 06:00 04/05/19 05:30 Synthroid PO 150 mcg 0600 PATSY Administration Loratadine 10 mg 03/28/19 09:00 04/05/19 08:11 Claritin PO 10 mg DAILY PATSY Administration Ondansetron HCl 4 mg 03/27/19 04:17 03/27/19 16:58 Zofran SLOW IVP 4 mg Q6H PRN Administration Nausea/Vomiting Potassium Chloride 10 meq 04/01/19 17:00 04/05/19 08:11 Klor-Con 10 PO 10 meq BID-WM PATSY Administration Propranolol HCl 20 mg 03/27/19 21:00 04/05/19 08:10 Inderal PO 20 mg BID PATSY Administration Spironolactone 50 mg 03/29/19 12:00 04/05/19 13:48 Aldactone PO 50 mg TID-WM PATSY Administration Tramadol HCl 50 mg 04/02/19 14:01 04/05/19 09:49 Ultram PO 50 mg Q8H PRN Administration Moderate Pain (4-6) Trazodone HCl 50 mg 03/27/19 21:00 04/04/19 20:29 Desyrel PO 50 mg HS PATSY Administration Venlafaxine HCl 37.5 mg 03/27/19 21:00 04/04/19 20:29 Effexor Xr PO 37.5 mg HS PATSY Administration - Exam General Appearance: awake alert Eye: PERRL, anicteric sclera ENT: no oropharyngeal lesions, moist mucosa Neck: supple, no JVD Heart: RRR, no murmur Respiratory: no wheezes, no rales Gastrointestinal: normal bowel sounds, no guarding, no rigidity Gastrointestinal - other findings: mild distention Extremities: no cyanosis, 1+ LE edema Neurological: cranial nerve grossly intact, no focal deficits Psychiatric: A&O x 3 Hosp A/P (1) Portal vein thrombosis Code(s): I81 - PORTAL VEIN THROMBOSIS Status: Acute (2) Cirrhosis Code(s): K74.60 - UNSPECIFIED CIRRHOSIS OF LIVER Status: Chronic Qualifiers: Hepatic cirrhosis type: unspecified hepatic cirrhosis Ascites presence: with ascites Qualified Code(s): K74.60 - Unspecified cirrhosis of liver; R18.8 - Other ascites (3) Superior mesenteric vein thrombosis Code(s): K55.069 - ACUTE INFARCTION OF INTESTINE, PART AND EXTENT UNSPECIFIED Status: Acute (4) Ascites Code(s): R18.8 - OTHER ASCITES Status: Chronic (5) Decompensated hepatic cirrhosis Code(s): K72.90 - HEPATIC FAILURE, UNSPECIFIED WITHOUT COMA Status: Acute (6) HTN (hypertension) Code(s): I10 - ESSENTIAL (PRIMARY) HYPERTENSION Status: Chronic Qualifiers: Hypertension type: essential hypertension Qualified Code(s): I10 - Essential (primary) hypertension (7) Hypoalbuminemia Code(s): E88.09 - OTH DISORDERS OF PLASMA-PROTEIN METABOLISM, NEC Status: Chronic (8) Hypothyroidism Code(s): E03.9 - HYPOTHYROIDISM, UNSPECIFIED Status: Chronic - Plan abd pain sec to smv and portal vein thrombosis resolving, is on eliquis on lasix, spironolactone, synthroid, trazadone and venlafaxine lactulose held due to loose stools around 8 last 24hrs lives with her daughter at home, has amb around 300ft with PT hemostable dc planning
[2019-04-05] MEDS: Venlafaxine XR 37.5 MG CAP PO SCH (20:20)
[2019-04-05] MEDS: traZODone HCl 50 MG TAB PO SCH (20:20)
[2019-04-06] MEDS: traMADol HCl 50 MG TAB PO PRN ×2 (04:23→20:30)
[2019-04-06] MEDS: Levothyroxine 150 MCG TAB PO SCH (04:23)
[2019-04-06] MEDS: Ipratropium Oral Inhaler INH SCH ×4 (07:00→20:40)
[2019-04-06] MEDS ORDERED: Apixaban 5 MG TAB PO SCH (09:00)
[2019-04-06] MEDS: Spironolactone 25 MG TAB PO SCH ×3 (10:30→17:40)
[2019-04-06] MEDS: Propranolol HCl 20 MG TAB PO SCH ×2 (10:30→20:25)
[2019-04-06] MEDS: Furosemide 40 MG TAB PO SCH ×2 (10:31→13:48)
[2019-04-06] MEDS: Potassium Chloride 10 MEQ TAB PO SCH ×2 (10:31→17:40)
[2019-04-06] MEDS: Loratadine 10 MG TAB PO SCH (10:31)
[2019-04-06] MEDS: Apixaban 2.5 MG TAB PO SCH ×2 (10:31→20:25)
--- NOTE | 2019-04-06 15:18 | PDOC.HOSPP ---
- Subjective Encounter Date: 04/06/19 Encounter Time: 09:45 Subjective: no abd pain or sob has not ambulated much yesterday per patient still has a lot of diarrhea per patient - Objective Vital Signs & Weight: Vital Signs (12 hours) Temp Pulse Resp BP BP Pulse Ox 04/06/19 14:55 69 16 96 04/06/19 12:19 69 90/62 04/06/19 11:45 98 F 69 17 85/57 L 91 L 04/06/19 10:54 69 16 94 L 04/06/19 07:18 98 F 79 17 95/62 95 04/06/19 07:01 97 04/06/19 07:00 70 16 97 Weight Admit Weight 170 lb 8 oz Weight 170 lb 8 oz I&O: 04/05/19 04/06/19 04/07/19 06:59 06:59 06:59 Intake Total 240 600 Balance 240 600 Result Diagrams: 04/04/19 05:08 04/05/19 05:50 Hospitalist ROS - Medication Medications: Active Medications Generic Name Dose Route Start Last Admin Trade Name Freq PRN Reason Stop Dose Admin Apixaban 2.5 mg 04/02/19 09:00 04/06/19 10:31 Eliquis PO 2.5 mg BID PATSY Administration Calcium Carbonate 1,000 mg 03/30/19 03:56 04/03/19 05:06 Tums PO 1,000 mg Q4H PRN Administration Heartburn Furosemide 40 mg 04/03/19 14:00 04/06/19 13:48 Lasix PO 40 mg 0900,1400 PATSY Administration Ipratropium [place] 1 puff 03/30/19 15:00 04/06/19 14:55 Atrovent Hfa INH 1 puff QID-RT PATSY Administration Lactulose 20 gm 03/27/19 21:00 04/06/19 15:11 Lactulose PO Not Given TID PATSY Levothyroxine Sodium 150 mcg 03/28/19 06:00 04/06/19 04:23 Synthroid PO 150 mcg 0600 PATSY Administration Loratadine 10 mg 03/28/19 09:00 04/06/19 10:31 Claritin PO 10 mg DAILY PATSY Administration Ondansetron HCl 4 mg 03/27/19 04:17 03/27/19 16:58 Zofran SLOW IVP 4 mg Q6H PRN Administration Nausea/Vomiting Potassium Chloride 10 meq 04/01/19 17:00 04/06/19 10:31 Klor-Con 10 PO 10 meq BID-WM PATSY Administration Propranolol HCl 20 mg 03/27/19 21:00 04/06/19 10:30 Inderal PO 20 mg BID PATSY Administration Spironolactone 50 mg 03/29/19 12:00 04/06/19 13:48 Aldactone PO 50 mg TID-WM PATSY Administration Tramadol HCl 50 mg 04/02/19 14:01 04/06/19 04:23 Ultram PO 50 mg Q8H PRN Administration Moderate Pain (4-6) Trazodone HCl 50 mg 03/27/19 21:00 04/05/19 20:20 Desyrel PO 50 mg HS PATSY Administration Venlafaxine HCl 37.5 mg 03/27/19 21:00 04/05/19 20:20 Effexor Xr PO 37.5 mg HS PATSY Administration - Exam General Appearance: awake alert Eye: PERRL, anicteric sclera ENT: no oropharyngeal lesions, moist mucosa Neck: supple, no JVD Heart: RRR, no murmur Respiratory: no wheezes, no rales Gastrointestinal: soft, non-tender, normal bowel sounds, no guarding, no rigidity, distended Extremities: no cyanosis, 1+ LE edema Neurological: cranial nerve grossly intact, no focal deficits Hosp A/P (1) Portal vein thrombosis Code(s): I81 - PORTAL VEIN THROMBOSIS Status: Acute (2) Cirrhosis Code(s): K74.60 - UNSPECIFIED CIRRHOSIS OF LIVER Status: Chronic Qualifiers: Hepatic cirrhosis type: unspecified hepatic cirrhosis Ascites presence: with ascites Qualified Code(s): K74.60 - Unspecified cirrhosis of liver; R18.8 - Other ascites (3) Superior mesenteric vein thrombosis Code(s): K55.069 - ACUTE INFARCTION OF INTESTINE, PART AND EXTENT UNSPECIFIED Status: Acute (4) Ascites Code(s): R18.8 - OTHER ASCITES Status: Chronic (5) Decompensated hepatic cirrhosis Code(s): K72.90 - HEPATIC FAILURE, UNSPECIFIED WITHOUT COMA Status: Acute (6) HTN (hypertension) Code(s): I10 - ESSENTIAL (PRIMARY) HYPERTENSION Status: Chronic Qualifiers: Hypertension type: essential hypertension Qualified Code(s): I10 - Essential (primary) hypertension (7) Hypoalbuminemia Code(s): E88.09 - OTH DISORDERS OF PLASMA-PROTEIN METABOLISM, NEC Status: Chronic (8) Hypothyroidism Code(s): E03.9 - HYPOTHYROIDISM, UNSPECIFIED Status: Chronic - Plan abd pain sec to smv and portal vein thrombosis resolving, is on eliquis on lasix, spironolactone, synthroid, trazadone and venlafaxine lactulose held due to loose stools lives with her daughter at home, has amb around 300ft with PT hemostable dc plan when diarrhea resolves and placement is ready at [facility].
[2019-04-06] MEDS: traZODone HCl 50 MG TAB PO SCH (20:25)
[2019-04-06] MEDS: Venlafaxine XR 37.5 MG CAP PO SCH (20:25)
[2019-04-07 05:26] LABS: Hemoglobin 11.5 g/dL (12.0-16.0); Platelet Count 141 thou/uL (130-400)
[2019-04-07] MEDS: Levothyroxine 150 MCG TAB PO SCH (05:36)
[2019-04-07] MEDS: Ipratropium Oral Inhaler INH SCH ×4 (07:01→18:30)
[2019-04-07] MEDS: Propranolol HCl 20 MG TAB PO SCH ×2 (08:20→20:10)
[2019-04-07] MEDS: Furosemide 40 MG TAB PO SCH ×2 (08:20→15:07)
[2019-04-07] MEDS: Spironolactone 25 MG TAB PO SCH ×3 (08:20→17:24)
[2019-04-07] MEDS: Potassium Chloride 10 MEQ TAB PO SCH ×2 (08:20→17:24)
[2019-04-07] MEDS: Loratadine 10 MG TAB PO SCH (08:21)
[2019-04-07] MEDS: Apixaban 2.5 MG TAB PO SCH ×2 (08:21→20:10)
--- NOTE | 2019-04-07 15:03 | PDOC.HOSPP ---
- Subjective Encounter Date: 04/07/19 Encounter Time: 08:00 Subjective: no abd pain or nausea feels better, diarrhea has stopped. - Objective Vital Signs & Weight: Vital Signs (12 hours) Temp Pulse Resp BP Pulse Ox 04/07/19 14:13 68 16 95 04/07/19 10:25 66 16 93 L 04/07/19 08:00 93 L 04/07/19 07:50 99.8 F H 67 20 103/66 93 L 04/07/19 07:02 96 04/07/19 07:01 64 16 96 Weight Admit Weight 170 lb 8 oz Weight 170 lb 8 oz I&O: 04/06/19 04/07/19 04/08/19 06:59 06:59 06:59 Intake Total 600 480 Balance 600 480 Result Diagrams: 04/07/19 05:11 04/05/19 05:50 Hospitalist ROS - Medication Medications: Active Medications Generic Name Dose Route Start Last Admin Trade Name Freq PRN Reason Stop Dose Admin Apixaban 2.5 mg 04/02/19 09:00 04/07/19 08:21 Eliquis PO 2.5 mg BID PATSY Administration Calcium Carbonate 1,000 mg 03/30/19 03:56 04/03/19 05:06 Tums PO 1,000 mg Q4H PRN Administration Heartburn Furosemide 40 mg 04/03/19 14:00 04/07/19 08:20 Lasix PO 40 mg 0900,1400 PATSY Administration Ipratropium [place] 1 puff 03/30/19 15:00 04/07/19 14:13 Atrovent Hfa INH 1 puff QID-RT PATSY Administration Lactulose 20 gm 03/27/19 21:00 04/07/19 08:21 Lactulose PO Not Given TID PATSY Levothyroxine Sodium 150 mcg 03/28/19 06:00 04/07/19 05:36 Synthroid PO 150 mcg 0600 PATSY Administration Loratadine 10 mg 03/28/19 09:00 04/07/19 08:21 Claritin PO 10 mg DAILY PATSY Administration Ondansetron HCl 4 mg 03/27/19 04:17 03/27/19 16:58 Zofran SLOW IVP 4 mg Q6H PRN Administration Nausea/Vomiting Potassium Chloride 10 meq 04/01/19 17:00 04/07/19 08:20 Klor-Con 10 PO 10 meq BID-WM PATSY Administration Propranolol HCl 20 mg 03/27/19 21:00 04/07/19 08:20 Inderal PO 20 mg BID PATSY Administration Spironolactone 50 mg 03/29/19 12:00 04/07/19 12:50 Aldactone PO 50 mg TID-WM PATSY Administration Tramadol HCl 50 mg 04/02/19 14:01 04/06/19 20:30 Ultram PO 50 mg Q8H PRN Administration Moderate Pain (4-6) Trazodone HCl 50 mg 03/27/19 21:00 04/06/19 20:25 Desyrel PO 50 mg HS PATSY Administration Venlafaxine HCl 37.5 mg 03/27/19 21:00 04/06/19 20:25 Effexor Xr PO 37.5 mg HS PATSY Administration - Exam General Appearance: awake alert Eye: PERRL, anicteric sclera ENT: no oropharyngeal lesions, moist mucosa Neck: supple, no JVD Heart: RRR, no murmur Respiratory: no wheezes, no rales Gastrointestinal: soft, non-tender, normal bowel sounds, distended Extremities: no cyanosis, no edema Neurological: cranial nerve grossly intact, no focal deficits Hosp A/P (1) Portal vein thrombosis Code(s): I81 - PORTAL VEIN THROMBOSIS Status: Acute (2) Cirrhosis Code(s): K74.60 - UNSPECIFIED CIRRHOSIS OF LIVER Status: Chronic Qualifiers: Hepatic cirrhosis type: unspecified hepatic cirrhosis Ascites presence: with ascites Qualified Code(s): K74.60 - Unspecified cirrhosis of liver; R18.8 - Other ascites (3) Superior mesenteric vein thrombosis Code(s): K55.069 - ACUTE INFARCTION OF INTESTINE, PART AND EXTENT UNSPECIFIED Status: Acute (4) Ascites Code(s): R18.8 - OTHER ASCITES Status: Chronic (5) Decompensated hepatic cirrhosis Code(s): K72.90 - HEPATIC FAILURE, UNSPECIFIED WITHOUT COMA Status: Resolved (6) HTN (hypertension) Code(s): I10 - ESSENTIAL (PRIMARY) HYPERTENSION Status: Chronic Qualifiers: Hypertension type: essential hypertension Qualified Code(s): I10 - Essential (primary) hypertension (7) Hypoalbuminemia Code(s): E88.09 - OTH DISORDERS OF PLASMA-PROTEIN METABOLISM, NEC Status: Chronic (8) Hypothyroidism Code(s): E03.9 - HYPOTHYROIDISM, UNSPECIFIED Status: Chronic - Plan abd pain sec to smv and portal vein thrombosis resolving, is on eliquis on lasix, spironolactone, synthroid, trazadone and venlafaxine lactulose held due to loose stools lives with her daughter at home, has amb around 300ft with PT hemostable dc anytime placement is ready at [facility].
[2019-04-07] MEDS: traZODone HCl 50 MG TAB PO SCH (20:10)
[2019-04-07] MEDS: Venlafaxine XR 37.5 MG CAP PO SCH (20:10)
[2019-04-07] MEDS: traMADol HCl 50 MG TAB PO PRN (22:08)
[2019-04-08] MEDS: Levothyroxine 150 MCG TAB PO SCH (05:43)
[2019-04-08] MEDS: Ipratropium Oral Inhaler INH SCH ×4 (07:48→18:14)
[2019-04-08] MEDS: Spironolactone 25 MG TAB PO SCH ×3 (09:23→17:35)
[2019-04-08] MEDS: Propranolol HCl 20 MG TAB PO SCH ×2 (09:23→20:28)
[2019-04-08] MEDS: Potassium Chloride 10 MEQ TAB PO SCH ×2 (09:23→17:35)
[2019-04-08] MEDS: Furosemide 40 MG TAB PO SCH ×2 (09:24→15:27)
[2019-04-08] MEDS: Loratadine 10 MG TAB PO SCH (09:24)
[2019-04-08] MEDS: Apixaban 2.5 MG TAB PO SCH ×2 (09:24→20:28)
[2019-04-08] MEDS: traMADol HCl 50 MG TAB PO PRN (13:07)
--- NOTE | 2019-04-08 13:09 | PDOC.HOSPP ---
- Subjective Encounter Date: 04/08/19 Encounter Time: 09:30 Subjective: no sob or nausea no diarrhea now - Objective Vital Signs & Weight: Vital Signs (12 hours) Temp Pulse Resp BP BP Pulse Ox 04/08/19 12:10 98.4 F 68 20 96/65 93 L 04/08/19 10:11 68 16 95 04/08/19 08:12 98.3 F 70 20 96/61 95 04/08/19 08:00 94 L 04/08/19 07:48 70 16 93 L 04/08/19 07:00 93 L 04/08/19 04:00 98.1 F 69 18 102/69 95 Weight Admit Weight 170 lb 8 oz Weight 170 lb 8 oz I&O: 04/07/19 04/08/19 04/09/19 06:59 06:59 06:59 Intake Total 480 500 Balance 480 500 Result Diagrams: 04/07/19 05:11 04/05/19 05:50 Hospitalist ROS - Medication Medications: Active Medications Generic Name Dose Route Start Last Admin Trade Name Jose Aq PRN Reason Stop Dose Admin Apixaban 2.5 mg 04/02/19 09:00 04/08/19 09:24 Eliquis PO 2.5 mg BID PATSY Administration Calcium Carbonate 1,000 mg 03/30/19 03:56 04/03/19 05:06 Tums PO 1,000 mg Q4H PRN Administration Heartburn Furosemide 40 mg 04/03/19 14:00 04/08/19 09:24 Lasix PO 40 mg 0900,1400 PATSY Administration Ipratropium [place] 1 puff 03/30/19 15:00 04/08/19 10:11 Atrovent Hfa INH 1 puff QID-RT PATSY Administration Lactulose 20 gm 03/27/19 21:00 04/08/19 09:25 Lactulose PO Not Given TID PATSY Levothyroxine Sodium 150 mcg 03/28/19 06:00 04/08/19 05:43 Synthroid PO 150 mcg 0600 PATSY Administration Loratadine 10 mg 03/28/19 09:00 04/08/19 09:24 Claritin PO 10 mg DAILY PATSY Administration Ondansetron HCl 4 mg 03/27/19 04:17 03/27/19 16:58 Zofran SLOW IVP 4 mg Q6H PRN Administration Nausea/Vomiting Potassium Chloride 10 meq 04/01/19 17:00 04/08/19 09:23 Klor-Con 10 PO 10 meq BID-WM PATSY Administration Propranolol HCl 20 mg 03/27/19 21:00 04/08/19 09:23 Inderal PO 20 mg BID PATSY Administration Spironolactone 50 mg 03/29/19 12:00 04/08/19 09:23 Aldactone PO 50 mg TID-WM PATSY Administration Tramadol HCl 50 mg 04/02/19 14:01 04/07/19 22:08 Ultram PO 50 mg Q8H PRN Administration Moderate Pain (4-6) Trazodone HCl 50 mg 03/27/19 21:00 04/07/19 20:10 Desyrel PO 50 mg HS PATSY Administration Venlafaxine HCl 37.5 mg 03/27/19 21:00 04/07/19 20:10 Effexor Xr PO 37.5 mg HS PATSY Administration - Exam General Appearance: awake alert Eye: PERRL, anicteric sclera ENT: no oropharyngeal lesions, moist mucosa Neck: supple, no JVD Heart: RRR, no murmur Respiratory: no wheezes, no rales Gastrointestinal: soft, normal bowel sounds, no guarding, no rigidity, distended Extremities: no cyanosis, no edema Neurological: cranial nerve grossly intact, no focal deficits Psychiatric: A&O x 3 Hosp A/P (1) Portal vein thrombosis Code(s): I81 - PORTAL VEIN THROMBOSIS Status: Acute (2) Cirrhosis Code(s): K74.60 - UNSPECIFIED CIRRHOSIS OF LIVER Status: Chronic Qualifiers: Hepatic cirrhosis type: unspecified hepatic cirrhosis Ascites presence: with ascites Qualified Code(s): K74.60 - Unspecified cirrhosis of liver; R18.8 - Other ascites (3) Superior mesenteric vein thrombosis Code(s): K55.069 - ACUTE INFARCTION OF INTESTINE, PART AND EXTENT UNSPECIFIED Status: Acute (4) Ascites Code(s): R18.8 - OTHER ASCITES Status: Chronic (5) Decompensated hepatic cirrhosis Code(s): K72.90 - HEPATIC FAILURE, UNSPECIFIED WITHOUT COMA Status: Resolved (6) HTN (hypertension) Code(s): I10 - ESSENTIAL (PRIMARY) HYPERTENSION Status: Chronic Qualifiers: Hypertension type: essential hypertension Qualified Code(s): I10 - Essential (primary) hypertension (7) Hypoalbuminemia Code(s): E88.09 - OTH DISORDERS OF PLASMA-PROTEIN METABOLISM, NEC Status: Chronic (8) Hypothyroidism Code(s): E03.9 - HYPOTHYROIDISM, UNSPECIFIED Status: Chronic - Plan abd pain sec to smv and portal vein thrombosis resolving, is on eliquis on lasix, spironolactone, synthroid, trazadone and venlafaxine lactulose held due to loose stools lives with her daughter at home, has amb around 300ft with PT hemostable dc anytime placement is ready at [facility].
[2019-04-08] MEDS: traZODone HCl 50 MG TAB PO SCH (20:28)
[2019-04-08] MEDS: Venlafaxine XR 37.5 MG CAP PO SCH (20:28)
[2019-04-08] MEDS: Calcium Carbonate 500 MG ChewTAB PO PRN (20:28)
[2019-04-09] MEDS: Levothyroxine 150 MCG TAB PO SCH (05:25)
[2019-04-09] MEDS: traMADol HCl 50 MG TAB PO PRN (05:25)
[2019-04-09] MEDS: Ipratropium Oral Inhaler INH SCH ×3 (08:03→13:54)
[2019-04-09] MEDS: Spironolactone 25 MG TAB PO SCH ×3 (08:50→15:51)
[2019-04-09] MEDS: Propranolol HCl 20 MG TAB PO SCH (08:50)
[2019-04-09] MEDS: Apixaban 2.5 MG TAB PO SCH (08:50)
[2019-04-09] MEDS: Loratadine 10 MG TAB PO SCH (08:50)
[2019-04-09] MEDS: Potassium Chloride 10 MEQ TAB PO SCH ×2 (08:50→15:51)
[2019-04-09] MEDS: Furosemide 40 MG TAB PO SCH ×2 (08:50→12:29)
[2019-04-09 16:28] VITALS: TEMP 98
[2019-04-09 16:30] VITALS: BP 106/57
--- NOTE | 2019-04-09 17:39 | DIS ---
DATE OF ADMISSION: 03/26/2019 DATE OF DISCHARGE: 04/09/2019 DISCHARGE DISPOSITION: Home. PRIMARY DISCHARGE DIAGNOSES: 1. 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 2. Partial portal vein thrombosis. 3. History of cirrhosis with ascites. SECONDARY DISCHARGE DIAGNOSIS: 1. Hypoalbuminemia due to cirrhosis. 2. Hypothyroidism. 3. Hypertension. PROCEDURES DONE DURING HOSPITALIZATION: Abdominal and pelvic CAT scan done on the day of admission showed partially occlusive thrombus within the SMV extending into the SMA branches of the lower central mesentry inducing ischemic enteritis to loops of small bowel within the lower central abdomen. There was also partial occlusive thrombus within the main portal vein, there was moderate ascites with findings of cirrhosis and portal hypertension. There was stable compression fracture of T11 and T8. Influenza A and B antigens were negative. H and H 11 and 35, platelet count 141. BUN 12, creatinine 1.0, albumin is 2.0. BNP 160. Liver enzymes were within normal limits. INPATIENT CONSULT: Dr. Angel Vargas for Gastroenterology. DISCHARGE PLAN: The patient to follow up with Dr. Angel Vargas in 2 to 3 weeks, primary care physician, Dr. Etta Hamm in 1 week. BRIEF COURSE DURING HOSPITALIZATION: The patient initially came to ER with complaints of abdominal pain. Her initial CAT scan revealed superior mesenteric vein and portal vein thrombosis. She had ischemic enteritis. The patient was placed on anticoagulation. She has responded well to this measure. Prior to discharge, she was ambulating and tolerating oral solid diet. She has had some diarrheal episodes and in the last 3 day her lactulose was held. She needs to slowly restart lactulose at least once daily. Her medications were optimized. She has known history of cirrhosis with portal hypertension and moderate ascites. No paracentesis was done during her stay here. She has been counseled with regard to medication compliance and dietary compliance with very low salt. Prior to discharge, she was ambulating more than 300 feet with a rolling walker. Please note I have seen and examined the patient on the day of discharge. DISCHARGE MEDICATIONS: 1. Levothyroxine 150 mcg p.o. daily. 2. Claritin 10 mg daily. 3. Propranolol 20 mg twice daily. 4. Spironolactone 50 mg 3 times daily. 5. Trazodone 50 mg p.o. at bedtime. 6. Venlafaxine extended release 37.5 mg p.o. at bedtime. 7. Eliquis 2.5 mg twice daily. 8. Lasix 40 mg p.o. at 9 a.m. and 2 p.m. 9. Albuterol inhaler q.i.d. p.r.n. 10. Lactulose 20 g daily. 11. Potassium chloride 10 mEq p.o. twice daily. ALLERGIES: ALBUTEROL, ETANERCEPT, AND PENICILLIN. Job ID: [id number]
== END 2019-04-09 16:30 | disposition home health service (06) | DRG 441 ==
LOC: ERS 09:02 → T4-A 14:18
PROVIDERS: ADMIT Internal Medicine; ATTEND Internal Medicine
PROC: 0DJ08ZZ Inspection of Upper Intestinal Tract, Via Natural or Artificial Opening Endoscopic (ICD-10-PCS; principal; 2019-03-31)
DX: I81 Portal vein thrombosis (principal); K55.029 Acute infarction of small intestine, extent unspecified; J96.01 Acute respiratory failure with hypoxia; J96.02 Acute respiratory failure with hypercapnia; K55.019 Acute (reversible) ischemia of small intestine, extent unspecified; K76.6 Portal hypertension; R18.8 Other ascites; I85.10 Secondary esophageal varices without bleeding; D68.4 Acquired coagulation factor deficiency; E87.1 Hypo-osmolality and hyponatremia; E03.9 Hypothyroidism, unspecified; F32.9 Major depressive disorder, single episode, unspecified; J44.9 Chronic obstructive pulmonary disease, unspecified; K74.60 Unspecified cirrhosis of liver; K31.89 Other diseases of stomach and duodenum; N18.9 Chronic kidney disease, unspecified; B19.20 Unspecified viral hepatitis C without hepatic coma; K57.90 Diverticulosis of intestine, part unspecified, without perforation or abscess without bleeding; K72.90 Hepatic failure, unspecified without coma; I12.9 Hypertensive chronic kidney disease with stage 1 through stage 4 chronic kidney disease, or unspecified chronic kidney disease; E87.6 Hypokalemia; E83.42 Hypomagnesemia; Z79.899 Other long term (current) drug therapy; Z79.890 Hormone replacement therapy; Z90.49 Acquired absence of other specified parts of digestive tract; Z88.0 Allergy status to penicillin; Z88.8 Allergy status to other drugs, medicaments and biological substances
CPT/HCPCS: 36415; 71045; 74177; 80048; 80053; 82550; 82565; 82805; 83605; 83690; 83735; 83880; 85014; 85018; 85025; 85049; 85610; 85730; 87804; 94664; 96361; 96374; 96375; J0696; J0744; J1644; J1650; J2001; J2270; J2405; J2704; J2920; J3010; J3475; J3490; J7050; Q9967; S0028

== ENCOUNTER 2020-03-07 00:33 | Emergency (ER) | payer MEDICARE, MEDICAID ==
[2020-03-07 01:23] LABS: #Basophils 0.1 thou/uL (0.0-0.2); #Eosinphils 0.4 thou/uL (0.0-0.7); #Lymphocytes 0.9 thou/uL (1.20-3.40); #Monocytes 0.4 thou/uL (0.11-0.59); #Neutrophils 5.7 thou/uL (1.40-6.50); %Basophils 0.7 % (0.0-1.0); %Eosinophils 5.3 % (0.0-10.0); %Lymphocytes 12.1 % (21.0-51.0); %Monocytes 5.8 % (0.0-10.0); %Neutrophils 76.1 % (42.0-75.0); Hemoglobin 10.6 g/dL (12.0-16.0); Mean Corpuscular HGB CONC 31.3 g/dL (32.0-36.0); Mean Corpuscular Hemoglobin 31.3 pg (27.0-31.0); Mean Platelet Volume 7.5 fL (7.4-10.4); Platelet Count 234 thou/uL (130-400); RBC Distribution Width 14.3 % (11.5-14.5); Red Blood Cell (RBC) Count 3.39 mill/uL (4.20-5.40); White Blood Cell (WBC) Count 7.5 thou/uL (4.8-10.8)
[2020-03-07 01:39] LABS: ALT (SGPT) 13 U/L (8-55); AST (SGOT) 36 U/L (5-34); Albumin 2.6 g/dL (3.4-4.8); Alkaline Phosphatase 88 U/L (40-110); Anion Gap 15 mmol/L (10-20); BUN (Urea Nitrogen) 16 mg/dL (9.8-20.1); Bilirubin, Total 1.8 mg/dL (0.2-1.2); Calc. Creatinine Clearance 0 mL/min (70-130); Calcium 7.9 mg/dL (7.8-10.44); Carbon Dioxide 27 mmol/L (23-31); Chloride 96 mmol/L (98-107); Globulin 5.2 g/dL (2.4-3.5); Glucose 122 mg/dL (83-110); Potassium 3.4 mmol/L (3.5-5.1); Protein, Total 7.8 g/dL (6.0-8.3); Sodium 135 mmol/L (136-145)
[2020-03-07 01:41] LABS: INR-International Normal Ratio 1.4; PTT 26.8 sec (22.9-36.1); Prothrombin Time 17.1 sec (12.0-14.7)
== END 2020-03-07 03:46 | disposition home or self-care (01) ==
LOC: ERS 00:33
DX: K74.60 Unspecified cirrhosis of liver (principal); E03.9 Hypothyroidism, unspecified; I10 Essential (primary) hypertension; Z79.899 Other long term (current) drug therapy
CPT/HCPCS: 49083; 80053; 85025; 85610; 85730

== ENCOUNTER 2020-03-26 15:05 | Inpatient (IN) | payer MEDICARE, MEDICAID ==
[2020-03-26 15:53] LABS: #Basophils 0.1 thou/uL (0.0-0.2); #Eosinphils 0.1 thou/uL (0.0-0.7); #Lymphocytes 0.6 thou/uL (1.20-3.40); #Monocytes 0.5 thou/uL (0.11-0.59); #Neutrophils 6.1 thou/uL (1.40-6.50); %Basophils 0.8 % (0.0-1.0); %Eosinophils 1.4 % (0.0-10.0); %Lymphocytes 7.9 % (21.0-51.0); %Monocytes 6.7 % (0.0-10.0); %Neutrophils 83.2 % (42.0-75.0); Hemoglobin 10.8 g/dL (12.0-16.0); Mean Corpuscular HGB CONC 31.8 g/dL (32.0-36.0); Platelet Count 172 thou/uL (130-400); RBC Distribution Width 15.5 % (11.5-14.5); Red Blood Cell (RBC) Count 3.37 mill/uL (4.20-5.40); White Blood Cell (WBC) Count 7.4 thou/uL (4.8-10.8)
[2020-03-26 15:59] LABS: INR-International Normal Ratio 1.5; Prothrombin Time 18.1 sec (12.0-14.7)
[2020-03-26] MEDS ORDERED: Albumin 25% 25 GM/100 ML BOT IVPB SCH ×2 (16:00→18:15)
[2020-03-26 16:15] LABS: ALT (SGPT) 16 U/L (8-55); AST (SGOT) 23 U/L (5-34); Albumin 2.2 g/dL (3.4-4.8); Alkaline Phosphatase 87 U/L (40-110); Anion Gap 17 mmol/L (10-20); BUN (Urea Nitrogen) 38 mg/dL (9.8-20.1); Bilirubin, Total 1.8 mg/dL (0.2-1.2); Calc. Creatinine Clearance 0 mL/min (70-130); Carbon Dioxide 27 mmol/L (23-31); Chloride 91 mmol/L (98-107); Globulin 4.4 g/dL (2.4-3.5); Glucose 156 mg/dL (83-110); Potassium 3.7 mmol/L (3.5-5.1); Protein, Total 6.6 g/dL (5.8-8.1); Sodium 131 mmol/L (136-145)
[2020-03-26 17:04] LABS: RBC Count-Automated (BF) 126 /cu.mm; WBC/Nucleated-Auto (BF) 555 uL
[2020-03-26 17:05] LABS: BF Color Yellow; Body Fluid Source Ascites Body Fluid; Clarity Hazy (Clear); Tube # EDTA
[2020-03-26 17:31] LABS: BF Segmented Neutrophils 66 %; Cell Count Non Hematic 23 %; Lymphocytes 11 %
[2020-03-26] MEDS ORDERED: Ondansetron PF 4 MG/2 ML Vial IVP PRN (17:46)
[2020-03-26] MEDS ORDERED: Octreotide Acetate 1,250 MCG in Sodium Chloride 0.9% 250 ML 250 ML IVPB SCH (18:00)
[2020-03-26] MEDS ORDERED: Famotidine/PF 20 mg/2ml Vial SLOW IVP SCH (21:00)
[2020-03-26] MEDS: Midodrine HCl 5 MG TAB PO SCH (21:44)
[2020-03-26] MEDS ORDERED: Octreotide Acetate 100 MCG/ML VIAL SC SCH (22:00)
[2020-03-26 23:24] VITALS: BMI 28.3
[2020-03-27 03:01] LABS: SARS-CoV-2 PCR by NAA Not Detected (NotDetected)
[2020-03-27 06:56] LABS: Anion Gap 12 mmol/L (10-20); BUN (Urea Nitrogen) 37 mg/dL (9.8-20.1); Calc. Creatinine Clearance 23 mL/min (70-130); Calcium 7.9 mg/dL (7.8-10.44); Carbon Dioxide 31 mmol/L (23-31); Chloride 95 mmol/L (98-107); Glucose 119 mg/dL (83-110); Potassium 3.7 mmol/L (3.5-5.1); Sodium 134 mmol/L (136-145)
[2020-03-27 07:00] LABS: #Eosinphils 0.3 thou/uL (0.0-0.7); #Lymphocytes 0.6 thou/uL (1.20-3.40); #Monocytes 0.4 thou/uL (0.11-0.59); #Neutrophils 2.8 thou/uL (1.40-6.50); %Basophils 0.4 % (0.0-1.0); %Eosinophils 6.2 % (0.0-10.0); %Lymphocytes 15.5 % (21.0-51.0); %Monocytes 10.5 % (0.0-10.0); %Neutrophils 67.4 % (42.0-75.0); Hemoglobin 8.6 g/dL (12.0-16.0); Mean Corpuscular HGB CONC 31.8 g/dL (32.0-36.0); Mean Corpuscular Hemoglobin 32.1 pg (27.0-31.0); Platelet Count 114 thou/uL (130-400); Platelet Morphology Comment Appears Decreased; RBC Distribution Width 15.3 % (11.5-14.5); Red Blood Cell (RBC) Count 2.67 mill/uL (4.20-5.40); White Blood Cell (WBC) Count 4.1 thou/uL (4.8-10.8)
[2020-03-27] MEDS: Midodrine HCl 5 MG TAB PO SCH ×3 (08:11→19:57)
[2020-03-27] MEDS: traMADol HCl 50 MG TAB PO PRN (08:15)
[2020-03-27] MEDS ORDERED: Albumin 25% 25 GM/100 ML BOT IVPB SCH (09:00)
[2020-03-27] MEDS: Octreotide Acetate 100 MCG/ML VIAL SC SCH ×2 (14:06→21:14)
[2020-03-27] MEDS: Promethazine 25 MG TAB PO PRN (19:55)
[2020-03-27] MEDS: traZODone HCl 50 MG TAB PO SCH (19:57)
[2020-03-28] MEDS: Promethazine 25 MG TAB PO PRN (04:20)
[2020-03-28] MEDS: Levothyroxine Sodium 125 MCG TAB PO SCH ×2 (06:21→06:22)
[2020-03-28] MEDS: Octreotide Acetate 100 MCG/ML VIAL SC SCH ×3 (06:21→21:15)
[2020-03-28 06:23] LABS: INR-International Normal Ratio 1.6; Prothrombin Time 19.3 sec (12.0-14.7)
[2020-03-28 06:28] LABS: Band 1 % (5-11); Eosinophils 3 % (0-10); Hemoglobin 8.9 g/dL (12.0-16.0); Lymphocytes 13 % (21-51); MDiff Complete? YES; Mean Corpuscular HGB CONC 32.4 g/dL (32.0-36.0); Mean Corpuscular Hemoglobin 32.7 pg (27.0-31.0); Mean Platelet Volume 7.5 fL (7.4-10.4); Monocytes 12 % (0-10); Neutrophil 71 % (42-75); Platelet Count 111 thou/uL (130-400); Platelet Morphology Comment Appears Decreased; RBC Distribution Width 15.4 % (11.5-14.5); Red Blood Cell (RBC) Count 2.73 mill/uL (4.20-5.40); White Blood Cell (WBC) Count 4.6 thou/uL (4.8-10.8)
[2020-03-28 06:40] LABS: ALT (SGPT) 8 U/L (8-55); AST (SGOT) 17 U/L (5-34); Albumin 2.7 g/dL (3.4-4.8); Alkaline Phosphatase 54 U/L (40-110); Anion Gap 13 mmol/L (10-20); BUN (Urea Nitrogen) 34 mg/dL (9.8-20.1); Bilirubin, Total 2.3 mg/dL (0.2-1.2); Calc. Creatinine Clearance 28 mL/min (70-130); Calcium 7.9 mg/dL (7.8-10.44); Carbon Dioxide 28 mmol/L (23-31); Chloride 96 mmol/L (98-107); Glucose 108 mg/dL (83-110); Protein, Total 5.7 g/dL (5.8-8.1); Sodium 133 mmol/L (136-145)
[2020-03-28] MEDS ORDERED: Albumin 25% 25 GM/100 ML BOT IVPB SCH (10:45)
[2020-03-28] MEDS: Midodrine HCl 5 MG TAB PO SCH ×3 (11:16→20:19)
[2020-03-28] MEDS: Citalopram 10 MG TAB PO SCH (11:16)
[2020-03-28] MEDS: Cholecalciferol 1,000 UNITS (25 MCG) TAB PO SCH (11:16)
[2020-03-28] MEDS: traZODone HCl 50 MG TAB PO SCH (20:20)
[2020-03-29] MEDS: Levothyroxine Sodium 125 MCG TAB PO SCH (05:13)
[2020-03-29] MEDS: Octreotide Acetate 100 MCG/ML VIAL SC SCH ×3 (05:13→20:55)
[2020-03-29 05:49] LABS: #Eosinphils 0.1 thou/uL (0.0-0.7); #Lymphocytes 0.7 thou/uL (1.20-3.40); #Monocytes 0.6 thou/uL (0.11-0.59); #Neutrophils 3.5 thou/uL (1.40-6.50); %Basophils 0.2 % (0.0-1.0); %Eosinophils 2.9 % (0.0-10.0); %Lymphocytes 14.2 % (21.0-51.0); %Monocytes 11.4 % (0.0-10.0); %Neutrophils 71.3 % (42.0-75.0); Mean Corpuscular HGB CONC 32.7 g/dL (32.0-36.0); Mean Platelet Volume 7.7 fL (7.4-10.4); Platelet Count 118 thou/uL (130-400); RBC Distribution Width 15.3 % (11.5-14.5); Red Blood Cell (RBC) Count 2.72 mill/uL (4.20-5.40)
[2020-03-29 06:28] LABS: ALT (SGPT) 7 U/L (8-55); AST (SGOT) 14 U/L (5-34); Albumin 2.8 g/dL (3.4-4.8); Alkaline Phosphatase 43 U/L (40-110); Anion Gap 14 mmol/L (10-20); BUN (Urea Nitrogen) 30 mg/dL (9.8-20.1); Bilirubin, Total 3.7 mg/dL (0.2-1.2); Calc. Creatinine Clearance 36 mL/min (70-130); Calcium 8.2 mg/dL (7.8-10.44); Carbon Dioxide 28 mmol/L (23-31); Chloride 98 mmol/L (98-107); Globulin 2.7 g/dL (2.4-3.5); Glucose 103 mg/dL (83-110); Potassium 3.9 mmol/L (3.5-5.1); Protein, Total 5.5 g/dL (5.8-8.1); Sodium 136 mmol/L (136-145)
[2020-03-29] MEDS ORDERED: Albumin 25% 25 GM/100 ML BOT IVPB SCH (09:00)
[2020-03-29] MEDS: Citalopram 10 MG TAB PO SCH (09:03)
[2020-03-29] MEDS: Midodrine HCl 5 MG TAB PO SCH ×3 (09:03→20:55)
[2020-03-29] MEDS: Cholecalciferol 1,000 UNITS (25 MCG) TAB PO SCH (09:03)
[2020-03-29] MEDS: traZODone HCl 50 MG TAB PO SCH (20:55)
[2020-03-29] MEDS: Megestrol Acetate 40 MG TAB PO SCH (20:55)
[2020-03-30] MEDS: Levothyroxine Sodium 125 MCG TAB PO SCH (05:19)
[2020-03-30] MEDS: Octreotide Acetate 100 MCG/ML VIAL SC SCH ×3 (05:20→21:28)
[2020-03-30 05:41] LABS: #Eosinphils 0.3 thou/uL (0.0-0.7); #Lymphocytes 0.9 thou/uL (1.20-3.40); #Monocytes 0.6 thou/uL (0.11-0.59); #Neutrophils 4.3 thou/uL (1.40-6.50); %Basophils 0.4 % (0.0-1.0); %Eosinophils 4.4 % (0.0-10.0); %Lymphocytes 14.5 % (21.0-51.0); %Monocytes 10.1 % (0.0-10.0); %Neutrophils 70.7 % (42.0-75.0); Mean Corpuscular HGB CONC 32.2 g/dL (32.0-36.0); Mean Corpuscular Hemoglobin 32.7 pg (27.0-31.0); Mean Platelet Volume 8.2 fL (7.4-10.4); Platelet Count 116 thou/uL (130-400); RBC Distribution Width 15.4 % (11.5-14.5); Red Blood Cell (RBC) Count 2.75 mill/uL (4.20-5.40)
[2020-03-30 06:02] LABS: ALT (SGPT) Less than 7 U/L (8-55); AST (SGOT) 16 U/L (5-34); Alkaline Phosphatase 44 U/L (40-110); Anion Gap 15 mmol/L (10-20); BUN (Urea Nitrogen) 25 mg/dL (9.8-20.1); Bilirubin, Total 4.3 mg/dL (0.2-1.2); Calc. Creatinine Clearance 52 mL/min (70-130); Calcium 8.5 mg/dL (7.8-10.44); Carbon Dioxide 26 mmol/L (23-31); Chloride 100 mmol/L (98-107); Globulin 2.6 g/dL (2.4-3.5); Glucose 110 mg/dL (83-110); Potassium 3.7 mmol/L (3.5-5.1); Protein, Total 5.6 g/dL (5.8-8.1); Sodium 137 mmol/L (136-145)
[2020-03-30] MEDS: Midodrine HCl 5 MG TAB PO SCH ×3 (11:06→21:27)
[2020-03-30] MEDS: Citalopram 10 MG TAB PO SCH (11:06)
[2020-03-30] MEDS: Cholecalciferol 1,000 UNITS (25 MCG) TAB PO SCH (11:07)
[2020-03-30] MEDS: Megestrol Acetate 40 MG TAB PO SCH ×2 (11:07→21:27)
[2020-03-30] MEDS: traMADol HCl 50 MG TAB PO PRN (17:26)
[2020-03-30] MEDS ORDERED: Albumin 25% 25 GM/100 ML BOT IVPB SCH (21:00)
[2020-03-30] MEDS: traZODone HCl 50 MG TAB PO SCH (21:27)
[2020-03-30] MEDS ORDERED: Acetaminophen 325 MG TAB PO PRN (23:33)
[2020-03-31] MEDS: Octreotide Acetate 100 MCG/ML VIAL SC SCH ×3 (05:14→21:26)
[2020-03-31] MEDS: Levothyroxine Sodium 125 MCG TAB PO SCH (05:14)
[2020-03-31 06:13] LABS: #Eosinphils 0.4 thou/uL (0.0-0.7); #Lymphocytes 0.9 thou/uL (1.20-3.40); #Monocytes 0.6 thou/uL (0.11-0.59); #Neutrophils 4.7 thou/uL (1.40-6.50); %Basophils 0.1 % (0.0-1.0); %Eosinophils 5.5 % (0.0-10.0); %Lymphocytes 13.5 % (21.0-51.0); %Monocytes 9.7 % (0.0-10.0); %Neutrophils 71.2 % (42.0-75.0); Hemoglobin 8.8 g/dL (12.0-16.0); Mean Corpuscular HGB CONC 31.3 g/dL (32.0-36.0); Platelet Count 92 thou/uL (130-400); RBC Distribution Width 15.3 % (11.5-14.5); Red Blood Cell (RBC) Count 2.75 mill/uL (4.20-5.40); White Blood Cell (WBC) Count 6.6 thou/uL (4.8-10.8)
[2020-03-31 06:20] LABS: ALT (SGPT) Less than 7 U/L (8-55); AST (SGOT) 13 U/L (5-34); Albumin 2.6 g/dL (3.4-4.8); Alkaline Phosphatase 36 U/L (40-110); Anion Gap 10 mmol/L (10-20); BUN (Urea Nitrogen) 21 mg/dL (9.8-20.1); Bilirubin, Total 3.4 mg/dL (0.2-1.2); Calc. Creatinine Clearance 57 mL/min (70-130); Calcium 8.1 mg/dL (7.8-10.44); Carbon Dioxide 30 mmol/L (23-31); Chloride 100 mmol/L (98-107); Globulin 2.5 g/dL (2.4-3.5); Glucose 122 mg/dL (83-110); Potassium 3.6 mmol/L (3.5-5.1); Protein, Total 5.1 g/dL (5.8-8.1); Sodium 136 mmol/L (136-145)
[2020-03-31] MEDS: Megestrol Acetate 40 MG TAB PO SCH ×2 (08:43→21:21)
[2020-03-31] MEDS: Cholecalciferol 1,000 UNITS (25 MCG) TAB PO SCH (08:44)
[2020-03-31] MEDS: Midodrine HCl 5 MG TAB PO SCH ×3 (08:44→21:21)
[2020-03-31] MEDS: Citalopram 10 MG TAB PO SCH (08:44)
[2020-03-31] MEDS: traZODone HCl 50 MG TAB PO SCH (21:21)
[2020-03-31] MEDS: traMADol HCl 50 MG TAB PO PRN (21:22)
[2020-04-01] MEDS: Levothyroxine Sodium 125 MCG TAB PO SCH (05:11)
[2020-04-01] MEDS: Octreotide Acetate 100 MCG/ML VIAL SC SCH ×2 (05:11→15:01)
[2020-04-01 05:47] LABS: #Basophils 0.1 thou/uL (0.0-0.2); #Eosinphils 0.6 thou/uL (0.0-0.7); #Lymphocytes 0.9 thou/uL (1.20-3.40); #Monocytes 0.8 thou/uL (0.11-0.59); #Neutrophils 5.1 thou/uL (1.40-6.50); %Basophils 0.8 % (0.0-1.0); %Eosinophils 7.8 % (0.0-10.0); %Lymphocytes 12.2 % (21.0-51.0); %Monocytes 10.7 % (0.0-10.0); %Neutrophils 68.4 % (42.0-75.0); Hemoglobin 8.7 g/dL (12.0-16.0); Mean Corpuscular HGB CONC 31.2 g/dL (32.0-36.0); Mean Corpuscular Hemoglobin 31.9 pg (27.0-31.0); Mean Platelet Volume 7.3 fL (7.4-10.4); Platelet Count 101 thou/uL (130-400); RBC Distribution Width 15.2 % (11.5-14.5); Red Blood Cell (RBC) Count 2.73 mill/uL (4.20-5.40); White Blood Cell (WBC) Count 7.4 thou/uL (4.8-10.8)
[2020-04-01 06:01] LABS: ALT (SGPT) Less than 7 U/L (8-55); AST (SGOT) 16 U/L (5-34); Albumin 2.6 g/dL (3.4-4.8); Alkaline Phosphatase 49 U/L (40-110); Anion Gap 9 mmol/L (10-20); BUN (Urea Nitrogen) 22 mg/dL (9.8-20.1); Bilirubin, Total 2.7 mg/dL (0.2-1.2); Calc. Creatinine Clearance 67 mL/min (70-130); Calcium 8.3 mg/dL (7.8-10.44); Carbon Dioxide 31 mmol/L (23-31); Chloride 100 mmol/L (98-107); Globulin 2.8 g/dL (2.4-3.5); Glucose 118 mg/dL (83-110); Potassium 3.7 mmol/L (3.5-5.1); Protein, Total 5.4 g/dL (5.8-8.1); Sodium 136 mmol/L (136-145)
[2020-04-01] MEDS: Cholecalciferol 1,000 UNITS (25 MCG) TAB PO SCH (08:26)
[2020-04-01] MEDS: Citalopram 10 MG TAB PO SCH (08:27)
[2020-04-01] MEDS: Midodrine HCl 5 MG TAB PO SCH ×2 (08:27→15:01)
[2020-04-01] MEDS: Megestrol Acetate 40 MG TAB PO SCH (08:27)
[2020-04-01 11:29] VITALS: BP 147/88; TEMP 98
== END 2020-04-01 16:15 | disposition home or self-care (01) | DRG 441 ==
LOC: ERS 15:05 → SURG A 17:33
PROVIDERS: ADMIT Internal Medicine; ATTEND Family Medicine
DX: K76.7 Hepatorenal syndrome (principal); K65.2 Spontaneous bacterial peritonitis; N17.9 Acute kidney failure, unspecified; E87.1 Hypo-osmolality and hyponatremia; R18.8 Other ascites; N18.4 Chronic kidney disease, stage 4 (severe); Z20.822 Contact with and (suspected) exposure to COVID-19; K74.60 Unspecified cirrhosis of liver; R63.0 Anorexia; L40.9 Psoriasis, unspecified; F41.9 Anxiety disorder, unspecified; F32.9 Major depressive disorder, single episode, unspecified; E87.5 Hyperkalemia; K72.90 Hepatic failure, unspecified without coma; E88.09 Other disorders of plasma-protein metabolism, not elsewhere classified; D63.1 Anemia in chronic kidney disease; I12.9 Hypertensive chronic kidney disease with stage 1 through stage 4 chronic kidney disease, or unspecified chronic kidney disease; E03.9 Hypothyroidism, unspecified; Z68.28 Body mass index [BMI] 28.0-28.9, adult; Z90.49 Acquired absence of other specified parts of digestive tract; Z88.0 Allergy status to penicillin; Z88.8 Allergy status to other drugs, medicaments and biological substances; Z79.899 Other long term (current) drug therapy; Z79.890 Hormone replacement therapy
CPT/HCPCS: 36415; 49083; 76705; 80048; 80053; 82105; 82140; 82945; 84478; 85025; 85060; 85610; 85730; 87070; 87205; 87635; 89051; 96365; 96366; 96368; J0744; J2354; J7050; P9047; Q0169; S0028; S0179; U0003; U0005

== ENCOUNTER 2020-04-03 14:59 | Inpatient (IN) | payer MEDICARE, MEDICAID ==
[2020-04-03 15:42] LABS: #Eosinphils 0.1 thou/uL (0.0-0.7); #Lymphocytes 1.2 thou/uL (1.20-3.40); #Monocytes 0.5 thou/uL (0.11-0.59); #Neutrophils 9.2 thou/uL (1.40-6.50); %Basophils 0.3 % (0.0-1.0); %Eosinophils 0.7 % (0.0-10.0); %Lymphocytes 10.8 % (21.0-51.0); %Monocytes 4.6 % (0.0-10.0); %Neutrophils 83.5 % (42.0-75.0); Hemoglobin 12.2 g/dL (12.0-16.0); Mean Corpuscular HGB CONC 32.8 g/dL (32.0-36.0); Mean Corpuscular Hemoglobin 33.8 pg (27.0-31.0); Mean Platelet Volume 7.8 fL (7.4-10.4); Platelet Count 167 thou/uL (130-400); RBC Distribution Width 16.3 % (11.5-14.5)
[2020-04-03 16:19] LABS: Bilirubin Negative (Negative); Blood, Urine Negative (Negative); Clarity Clear (Clear); Glucose, Urine (Dipstick) Normal (Negative); Ketone, Urine Negative (Negative); Leukocyte Negative Leu/uL (Negative); Nitrite Negative (Negative); Protein, Urine (Dipstick) 20 mg/dL (Neg-Trace); Specific Gravity, Urine 1.019 (1.002-1.036); pH, Urine 6.5 (5.0-9.0)
[2020-04-03 16:20] LABS: ALT (SGPT) 13 U/L (8-55); AST (SGOT) 49 U/L (5-34); Albumin 3.2 g/dL (3.4-4.8); Alkaline Phosphatase 65 U/L (40-110); Anion Gap 20 mmol/L (10-20); BUN (Urea Nitrogen) 17 mg/dL (9.8-20.1); Bilirubin, Total 4.3 mg/dL (0.2-1.2); Calc. Creatinine Clearance 0 mL/min (70-130); Calcium 8.1 mg/dL (7.8-10.44); Carbon Dioxide 22 mmol/L (23-31); Chloride 98 mmol/L (98-107); Globulin 4.4 g/dL (2.4-3.5); Glucose 100 mg/dL (83-110); Lipase 9 U/L (8-78); Potassium 5.1 mmol/L (3.5-5.1); Protein, Total 7.6 g/dL (5.8-8.1); Sodium 135 mmol/L (136-145)
[2020-04-03] MEDS ORDERED: cefTRIAXone\\ROCEPHIN 1 GM VIAL ONE (17:14)
[2020-04-03 21:27] LABS: Lactic Acid 3.8 mmol/L (0.5-2.2)
[2020-04-03] MEDS ORDERED: Vancomycin 1.5 GRAM/300 ML BAG 1.5 GM in Premix Bag 1 BAG IVPB SCH ×2 (22:00→23:00)
[2020-04-03] MEDS: Sodium Chloride 0.9% 1,000 ML IV SCH (22:05)
[2020-04-03 22:06] VITALS: BMI 30.3
[2020-04-03] MEDS: Cefepime 2 GM in Sodium Chloride 0.9% 100 ML IVPB SCH (22:14)
[2020-04-04 01:20] LABS: Lactic Acid 2.8 mmol/L (0.5-2.2)
[2020-04-04 05:05] LABS: Anion Gap 15 mmol/L (10-20); BUN (Urea Nitrogen) 19 mg/dL (9.8-20.1); Calc. Creatinine Clearance 70 mL/min (70-130); Calcium 7.7 mg/dL (7.8-10.44); Carbon Dioxide 25 mmol/L (23-31); Chloride 101 mmol/L (98-107); Glucose 93 mg/dL (83-110); Potassium 3.6 mmol/L (3.5-5.1); Sodium 137 mmol/L (136-145)
[2020-04-04 05:23] LABS: #Eosinphils 0.2 thou/uL (0.0-0.7); #Lymphocytes 0.9 thou/uL (1.20-3.40); #Monocytes 0.6 thou/uL (0.11-0.59); #Neutrophils 6.7 thou/uL (1.40-6.50); %Basophils 0.2 % (0.0-1.0); %Eosinophils 2.3 % (0.0-10.0); %Lymphocytes 10.7 % (21.0-51.0); %Monocytes 6.7 % (0.0-10.0); Hemoglobin 9.2 g/dL (12.0-16.0); Mean Corpuscular HGB CONC 33.6 g/dL (32.0-36.0); Mean Corpuscular Hemoglobin 34.1 pg (27.0-31.0); Platelet Count 144 thou/uL (130-400); RBC Distribution Width 15.8 % (11.5-14.5); Red Blood Cell (RBC) Count 2.69 mill/uL (4.20-5.40); White Blood Cell (WBC) Count 8.4 thou/uL (4.8-10.8)
[2020-04-04] MEDS ORDERED: Dextrose 5 % And 0.9 % NaCl 1,000 ML IV SCH (08:15)
[2020-04-04] MEDS ORDERED: FLU VACC QS2020-21(65YR UP)/PF 240 MCG/0.7 ML SYRINGE IM ONE (09:00)
[2020-04-04] MEDS ORDERED: Sodium Bicarbonate 2.5 MEQ/5 ML VIAL ONE (10:06)
[2020-04-04] MEDS ORDERED: Lidocaine 1% PF 5 ML VIAL ONE (10:06)
[2020-04-04] MEDS: Sodium Chloride 0.9% 1,000 ML IV SCH (10:28)
[2020-04-04 10:30] LABS: SARS-CoV-2 PCR by NAA Not Detected (NotDetected)
[2020-04-04] MEDS: Cefepime 2 GM in Sodium Chloride 0.9% 100 ML IVPB SCH ×3 (11:30→21:36)
[2020-04-04 13:13] LABS: RBC Count-Automated (BF) 220 /cu.mm; WBC/Nucleated-Auto (BF) 84 uL
[2020-04-04 13:30] LABS: Body Fluid Source Ascites Body Fluid
[2020-04-04 13:31] LABS: BF Color Yellow; Clarity Cloudy/Turbid (Clear); Tube # EDTA
[2020-04-04 13:33] LABS: BF Segmented Neutrophils 30 %; Cell Count Non Hematic 40 %; Lymphocytes 29 %
[2020-04-04] MEDS: Folic Acid 1 MG TAB PO SCH (21:36)
[2020-04-04] MEDS: Albumin 25% 25 GM/100 ML BOT IVPB SCH (21:36)
[2020-04-04] MEDS ORDERED: Acetaminophen 325 MG TAB PO SCH (22:30)
[2020-04-05 04:30] LABS: #Eosinphils 0.4 thou/uL (0.0-0.7); #Lymphocytes 1.3 thou/uL (1.20-3.40); #Monocytes 0.7 thou/uL (0.11-0.59); #Neutrophils 8.7 thou/uL (1.40-6.50); %Basophils 0.3 % (0.0-1.0); %Lymphocytes 11.4 % (21.0-51.0); %Monocytes 6.3 % (0.0-10.0); Hemoglobin 9.7 g/dL (12.0-16.0); Mean Corpuscular HGB CONC 32.4 g/dL (32.0-36.0); Mean Corpuscular Hemoglobin 32.5 pg (27.0-31.0); Mean Platelet Volume 6.8 fL (7.4-10.4); Platelet Count 219 thou/uL (130-400); RBC Distribution Width 16.1 % (11.5-14.5); Red Blood Cell (RBC) Count 2.99 mill/uL (4.20-5.40); White Blood Cell (WBC) Count 11.1 thou/uL (4.8-10.8)
[2020-04-05 04:47] LABS: Lactic Acid 1.9 mmol/L (0.5-2.2)
[2020-04-05 04:54] LABS: ALT (SGPT) 9 U/L (8-55); AST (SGOT) 24 U/L (5-34); Albumin 2.5 g/dL (3.4-4.8); Alkaline Phosphatase 51 U/L (40-110); Anion Gap 11 mmol/L (10-20); BUN (Urea Nitrogen) 18 mg/dL (9.8-20.1); Bilirubin, Total 2.8 mg/dL (0.2-1.2); Calc. Creatinine Clearance 70 mL/min (70-130); Calcium 7.7 mg/dL (7.8-10.44); Carbon Dioxide 24 mmol/L (23-31); Chloride 104 mmol/L (98-107); Globulin 3.4 g/dL (2.4-3.5); Glucose 116 mg/dL (83-110); Magnesium 1.6 mg/dL (1.6-2.6); Phosphorus 2.1 mg/dL (2.3-4.7); Potassium 3.3 mmol/L (3.5-5.1); Protein, Total 5.9 g/dL (5.8-8.1); Sodium 136 mmol/L (136-145)
[2020-04-05] MEDS: Albumin 25% 25 GM/100 ML BOT IVPB SCH (06:23)
[2020-04-05] MEDS: Folic Acid 1 MG TAB PO SCH ×2 (09:36→22:06)
[2020-04-05] MEDS ORDERED: Potassium Phosphate 15 MMOL in Sodium Chloride 0.9% 250 ML 250 ML IVPB SCH (11:00)
[2020-04-05] MEDS ORDERED: Magnesium Sulfate 4 GM in Sodium Chloride 0.9% 250 ML 250 ML IVPB SCH (11:00)
[2020-04-05] MEDS ORDERED: traMADol HCl 50 MG TAB PO PRN (17:14)
[2020-04-05] MEDS: Promethazine 25 MG TAB PO PRN (22:06)
[2020-04-06] MEDS: Promethazine 25 MG TAB PO PRN (06:20)
[2020-04-06] MEDS: Levothyroxine Sodium 125 MCG TAB PO SCH (06:20)
[2020-04-06 07:23] LABS: #Basophils 0.1 thou/uL (0.0-0.2); #Eosinphils 0.4 thou/uL (0.0-0.7); #Lymphocytes 1.3 thou/uL (1.20-3.40); #Monocytes 0.9 thou/uL (0.11-0.59); #Neutrophils 7.9 thou/uL (1.40-6.50); %Basophils 0.7 % (0.0-1.0); %Eosinophils 3.5 % (0.0-10.0); %Lymphocytes 12.1 % (21.0-51.0); %Monocytes 8.9 % (0.0-10.0); %Neutrophils 74.9 % (42.0-75.0); Hemoglobin 9.3 g/dL (12.0-16.0); Mean Corpuscular HGB CONC 32.5 g/dL (32.0-36.0); Mean Corpuscular Hemoglobin 32.5 pg (27.0-31.0); Mean Platelet Volume 7.1 fL (7.4-10.4); Platelet Count 227 thou/uL (130-400); RBC Distribution Width 15.9 % (11.5-14.5); Red Blood Cell (RBC) Count 2.87 mill/uL (4.20-5.40); White Blood Cell (WBC) Count 10.5 thou/uL (4.8-10.8)
[2020-04-06] MEDS ORDERED: Spironolactone 100 MG TAB PO SCH (08:00)
[2020-04-06] MEDS: Megestrol Acetate 40 MG TAB PO SCH (08:53)
[2020-04-06] MEDS: Cholecalciferol 1,000 UNITS (25 MCG) TAB PO SCH (08:53)
[2020-04-06] MEDS: Citalopram 10 MG TAB PO SCH (08:53)
[2020-04-06] MEDS: Folic Acid 1 MG TAB PO SCH ×2 (08:53→20:14)
[2020-04-06] MEDS ORDERED: Furosemide 20 MG TAB PO SCH (09:00)
[2020-04-06 18:54] LABS: ALT (SGPT) 10 U/L (8-55); AST (SGOT) 22 U/L (5-34); Albumin 2.8 g/dL (3.4-4.8); Alkaline Phosphatase 55 U/L (40-110); Anion Gap 14 mmol/L (10-20); BUN (Urea Nitrogen) 14 mg/dL (9.8-20.1); Bilirubin, Total 3.6 mg/dL (0.2-1.2); Calc. Creatinine Clearance 80 mL/min (70-130); Calcium 7.6 mg/dL (7.8-10.44); Carbon Dioxide 23 mmol/L (23-31); Chloride 102 mmol/L (98-107); Globulin 3.3 g/dL (2.4-3.5); Glucose 121 mg/dL (83-110); Magnesium 2.3 mg/dL (1.6-2.6); Phosphorus 2.4 mg/dL (2.3-4.7); Potassium 3.5 mmol/L (3.5-5.1); Protein, Total 6.1 g/dL (5.8-8.1); Sodium 135 mmol/L (136-145)
[2020-04-06] MEDS ORDERED: Electrolyte Replacement Protocol 1 EACH FS SCH (19:15)
[2020-04-06] MEDS: traMADol HCl 50 MG TAB PO PRN (20:13)
[2020-04-06] MEDS: Rifaximin 550 MG TAB PO SCH (20:14)
[2020-04-06] MEDS ORDERED: Potassium Chloride 20 MEQ TAB PO SCH (20:30)
[2020-04-07] MEDS: Levothyroxine Sodium 125 MCG TAB PO SCH (05:55)
[2020-04-07 09:02] LABS: ALT (SGPT) 10 U/L (8-55); AST (SGOT) 22 U/L (5-34); Albumin 2.7 g/dL (3.4-4.8); Alkaline Phosphatase 57 U/L (40-110); Anion Gap 11 mmol/L (10-20); BUN (Urea Nitrogen) 15 mg/dL (9.8-20.1); Bilirubin, Total 3.8 mg/dL (0.2-1.2); Calc. Creatinine Clearance 78 mL/min (70-130); Calcium 7.7 mg/dL (7.8-10.44); Carbon Dioxide 24 mmol/L (23-31); Chloride 102 mmol/L (98-107); Globulin 3.4 g/dL (2.4-3.5); Glucose 110 mg/dL (83-110); Magnesium 2.3 mg/dL (1.6-2.6); Potassium 3.7 mmol/L (3.5-5.1); Protein, Total 6.1 g/dL (5.8-8.1); Sodium 133 mmol/L (136-145)
[2020-04-07] MEDS: Folic Acid 1 MG TAB PO SCH ×2 (09:22→21:19)
[2020-04-07] MEDS: Furosemide 40 MG TAB PO SCH (09:22)
[2020-04-07] MEDS: Cholecalciferol 1,000 UNITS (25 MCG) TAB PO SCH (09:22)
[2020-04-07] MEDS: Megestrol Acetate 40 MG TAB PO SCH (09:22)
[2020-04-07] MEDS: Rifaximin 550 MG TAB PO SCH ×2 (09:22→21:19)
[2020-04-07] MEDS: Spironolactone 100 MG TAB PO SCH (09:23)
[2020-04-07] MEDS: Citalopram 10 MG TAB PO SCH (09:23)
[2020-04-08] MEDS: traMADol HCl 50 MG TAB PO PRN ×2 (00:42→21:37)
[2020-04-08] MEDS: Levothyroxine Sodium 125 MCG TAB PO SCH (05:58)
[2020-04-08 06:44] LABS: ALT (SGPT) 9 U/L (8-55); AST (SGOT) 19 U/L (5-34); Albumin 2.6 g/dL (3.4-4.8); Alkaline Phosphatase 61 U/L (40-110); Anion Gap 11 mmol/L (10-20); BUN (Urea Nitrogen) 16 mg/dL (9.8-20.1); Bilirubin, Total 3.3 mg/dL (0.2-1.2); Calc. Creatinine Clearance 78 mL/min (70-130); Calcium 7.5 mg/dL (7.8-10.44); Carbon Dioxide 24 mmol/L (23-31); Chloride 101 mmol/L (98-107); Globulin 3.3 g/dL (2.4-3.5); Glucose 101 mg/dL (83-110); Potassium 3.8 mmol/L (3.5-5.1); Protein, Total 5.9 g/dL (5.8-8.1); Sodium 132 mmol/L (136-145)
[2020-04-08] MEDS ORDERED: Electrolyte Replacement Protocol FS PRN (08:00)
[2020-04-08] MEDS ORDERED: Potassium Chloride 40 MEQ in Sodium Chloride 0.9% 250 ML 250 ML IVPB SCH (09:00)
[2020-04-08] MEDS: Spironolactone 100 MG TAB PO SCH (09:03)
[2020-04-08] MEDS: Rifaximin 550 MG TAB PO SCH ×2 (09:03→21:35)
[2020-04-08] MEDS: Furosemide 40 MG TAB PO SCH (09:03)
[2020-04-08] MEDS: Megestrol Acetate 40 MG TAB PO SCH (09:03)
[2020-04-08] MEDS: Cholecalciferol 1,000 UNITS (25 MCG) TAB PO SCH (09:03)
[2020-04-08] MEDS: Folic Acid 1 MG TAB PO SCH ×2 (09:03→21:35)
[2020-04-08] MEDS: Citalopram 10 MG TAB PO SCH (09:04)
[2020-04-08] MEDS: PHOS-NAK 1 PKT PACK PO SCH ×2 (09:04→13:34)
[2020-04-08] MEDS: Promethazine 25 MG TAB PO PRN (09:05)
[2020-04-09 05:13] LABS: ALT (SGPT) 9 U/L (8-55); AST (SGOT) 29 U/L (5-34); Albumin 2.3 g/dL (3.4-4.8); Alkaline Phosphatase 61 U/L (40-110); Anion Gap 12 mmol/L (10-20); BUN (Urea Nitrogen) 18 mg/dL (9.8-20.1); Bilirubin, Total 2.5 mg/dL (0.2-1.2); Calc. Creatinine Clearance 83 mL/min (70-130); Calcium 7.4 mg/dL (7.8-10.44); Carbon Dioxide 18 mmol/L (23-31); Chloride 104 mmol/L (98-107); Globulin 3.4 g/dL (2.4-3.5); Glucose 122 mg/dL (83-110); Phosphorus 2.8 mg/dL (2.3-4.7); Potassium 4.9 mmol/L (3.5-5.1); Protein, Total 5.7 g/dL (5.8-8.1); Sodium 129 mmol/L (136-145)
[2020-04-09 05:29] LABS: #Eosinphils 0.4 thou/uL (0.0-0.7); #Lymphocytes 1.1 thou/uL (1.20-3.40); #Monocytes 1.1 thou/uL (0.11-0.59); #Neutrophils 7.6 thou/uL (1.40-6.50); %Basophils 0.3 % (0.0-1.0); %Eosinophils 3.7 % (0.0-10.0); %Lymphocytes 10.5 % (21.0-51.0); %Monocytes 10.9 % (0.0-10.0); %Neutrophils 74.5 % (42.0-75.0); Hemoglobin 9.1 g/dL (12.0-16.0); Mean Corpuscular HGB CONC 32.5 g/dL (32.0-36.0); Mean Platelet Volume 7.1 fL (7.4-10.4); Platelet Count 270 thou/uL (130-400); Red Blood Cell (RBC) Count 2.76 mill/uL (4.20-5.40); White Blood Cell (WBC) Count 10.3 thou/uL (4.8-10.8)
[2020-04-09] MEDS: Levothyroxine Sodium 125 MCG TAB PO SCH (05:49)
[2020-04-09] MEDS: Rifaximin 550 MG TAB PO SCH ×2 (08:42→20:18)
[2020-04-09] MEDS: traMADol HCl 50 MG TAB PO PRN ×2 (08:42→20:16)
[2020-04-09] MEDS: Furosemide 40 MG TAB PO SCH (08:43)
[2020-04-09] MEDS: Spironolactone 100 MG TAB PO SCH (08:43)
[2020-04-09] MEDS: Megestrol Acetate 40 MG TAB PO SCH (08:43)
[2020-04-09] MEDS: Folic Acid 1 MG TAB PO SCH ×2 (08:43→20:17)
[2020-04-09] MEDS: Citalopram 10 MG TAB PO SCH (08:43)
[2020-04-09] MEDS: Cholecalciferol 1,000 UNITS (25 MCG) TAB PO SCH (08:43)
[2020-04-09] MEDS ORDERED: Magnesium 2 GM/50 ML 2 GM in Premix Bag 1 BAG IVPB SCH (09:00)
[2020-04-10] MEDS: Promethazine 25 MG TAB PO PRN (03:05)
[2020-04-10 04:31] LABS: Anion Gap 11 mmol/L (10-20); BUN (Urea Nitrogen) 19 mg/dL (9.8-20.1); Calc. Creatinine Clearance 79 mL/min (70-130); Calcium 7.8 mg/dL (7.8-10.44); Carbon Dioxide 23 mmol/L (23-31); Chloride 101 mmol/L (98-107); Glucose 101 mg/dL (83-110); Magnesium 2.3 mg/dL (1.6-2.6); Potassium 4.2 mmol/L (3.5-5.1); Sodium 131 mmol/L (136-145)
[2020-04-10] MEDS: Levothyroxine Sodium 125 MCG TAB PO SCH (05:56)
[2020-04-10] MEDS: Megestrol Acetate 40 MG TAB PO SCH (08:44)
[2020-04-10] MEDS: Furosemide 40 MG TAB PO SCH (08:44)
[2020-04-10] MEDS: Spironolactone 100 MG TAB PO SCH (08:45)
[2020-04-10] MEDS: Folic Acid 1 MG TAB PO SCH ×2 (08:45→20:12)
[2020-04-10] MEDS: Rifaximin 550 MG TAB PO SCH ×2 (08:45→20:12)
[2020-04-10] MEDS: Cholecalciferol 1,000 UNITS (25 MCG) TAB PO SCH (08:45)
[2020-04-10] MEDS: Citalopram 10 MG TAB PO SCH (08:45)
[2020-04-11] MEDS: Levothyroxine Sodium 125 MCG TAB PO SCH (05:52)
[2020-04-11] MEDS ORDERED: Lidocaine 1% PF 5 ML VIAL ONE (07:46)
[2020-04-11] MEDS ORDERED: Sodium Bicarbonate 2.5 MEQ/5 ML VIAL ONE (07:47)
[2020-04-11] MEDS ORDERED: Albumin 25% 200 ML ONE (08:07)
[2020-04-11 09:05] VITALS: TEMP 98.4
[2020-04-11] MEDS: Spironolactone 100 MG TAB PO SCH (09:13)
[2020-04-11] MEDS: Citalopram 10 MG TAB PO SCH (09:13)
[2020-04-11] MEDS: Cholecalciferol 1,000 UNITS (25 MCG) TAB PO SCH (09:13)
[2020-04-11] MEDS: Megestrol Acetate 40 MG TAB PO SCH (09:14)
[2020-04-11] MEDS: Folic Acid 1 MG TAB PO SCH (09:14)
[2020-04-11] MEDS: Furosemide 40 MG TAB PO SCH (09:14)
[2020-04-11] MEDS: Rifaximin 550 MG TAB PO SCH (09:14)
[2020-04-11] MEDS: traMADol HCl 50 MG TAB PO PRN (11:58)
[2020-04-11 13:23] VITALS: BP 119/57
[2020-04-11 13:36] LABS: #Eosinphils 0.5 thou/uL (0.0-0.7); #Monocytes 0.8 thou/uL (0.11-0.59); #Neutrophils 4.9 thou/uL (1.40-6.50); %Basophils 0.3 % (0.0-1.0); %Eosinophils 6.5 % (0.0-10.0); %Lymphocytes 13.5 % (21.0-51.0); %Monocytes 10.6 % (0.0-10.0); %Neutrophils 69.1 % (42.0-75.0); Hemoglobin 9.3 g/dL (12.0-16.0); Mean Corpuscular HGB CONC 32.9 g/dL (32.0-36.0); Mean Corpuscular Hemoglobin 33.6 pg (27.0-31.0); Mean Platelet Volume 7.6 fL (7.4-10.4); Platelet Count 226 thou/uL (130-400); RBC Distribution Width 15.8 % (11.5-14.5); Red Blood Cell (RBC) Count 2.76 mill/uL (4.20-5.40); White Blood Cell (WBC) Count 7.1 thou/uL (4.8-10.8)
[2020-04-11 13:54] LABS: Anion Gap 13 mmol/L (10-20); BUN (Urea Nitrogen) 21 mg/dL (9.8-20.1); Calc. Creatinine Clearance 79 mL/min (70-130); Calcium 8.2 mg/dL (7.8-10.44); Carbon Dioxide 22 mmol/L (23-31); Chloride 100 mmol/L (98-107); Glucose 100 mg/dL (83-110); Potassium 4.2 mmol/L (3.5-5.1); Sodium 131 mmol/L (136-145)
== END 2020-04-11 17:14 | DRG 441 ==
LOC: ERS 14:59 → ONC 17:45 → OBSVTOIN 04-04 16:48
PROVIDERS: ADMIT Internal Medicine; ATTEND Internal Medicine
PROC: 0W9G3ZZ Drainage of Peritoneal Cavity, Percutaneous Approach (ICD-10-PCS; principal; 2020-04-04)
DX: K72.00 Acute and subacute hepatic failure without coma (principal); G92 Toxic encephalopathy; K76.7 Hepatorenal syndrome; R18.8 Other ascites; E87.1 Hypo-osmolality and hyponatremia; E87.2 Acidosis; K74.69 Other cirrhosis of liver; Z51.5 Encounter for palliative care; Z20.822 Contact with and (suspected) exposure to COVID-19; E03.9 Hypothyroidism, unspecified; K58.9 Irritable bowel syndrome, unspecified; I12.9 Hypertensive chronic kidney disease with stage 1 through stage 4 chronic kidney disease, or unspecified chronic kidney disease; N18.9 Chronic kidney disease, unspecified; F51.04 Psychophysiologic insomnia; E86.0 Dehydration; K75.4 Autoimmune hepatitis; F41.9 Anxiety disorder, unspecified; E87.6 Hypokalemia; J44.9 Chronic obstructive pulmonary disease, unspecified; Z88.0 Allergy status to penicillin; Z88.8 Allergy status to other drugs, medicaments and biological substances; Z79.890 Hormone replacement therapy; Z79.899 Other long term (current) drug therapy; Z90.49 Acquired absence of other specified parts of digestive tract
CPT/HCPCS: 36415; 49083; 51701; 70450; 71045; 80048; 80053; 81003; 82140; 83605; 83690; 83735; 84100; 84484; 85025; 85060; 87040; 87070; 87205; 87635; 89051; 93005; 96365; 96375; 96376; G0378; J0692; J0696; J3370; J3475; J3480; J3490; J7050; P9047; Q0169; S0179; U0003; U0005

== ENCOUNTER 2020-05-28 19:42 | Emergency (ER) | payer MEDICARE, MEDICAID ==
[2020-05-28 20:56] LABS: Hemoglobin 10.7 g/dL (12.0-16.0); Mean Corpuscular HGB CONC 31.7 g/dL (32.0-36.0); Platelet Count 339 thou/uL (130-400); RBC Distribution Width 13.6 % (11.5-14.5); Red Blood Cell (RBC) Count 3.34 mill/uL (4.20-5.40); White Blood Cell (WBC) Count 20.2 thou/uL (4.8-10.8)
[2020-05-28 21:00] LABS: ALT (SGPT) 15 U/L (8-55); AST (SGOT) 34 U/L (5-34); Albumin 2.4 g/dL (3.4-4.8); Alkaline Phosphatase 90 U/L (40-110); Anion Gap 24 mmol/L (10-20); BUN (Urea Nitrogen) 19 mg/dL (9.8-20.1); Calc. Creatinine Clearance 0 mL/min (70-130); Calcium 8.2 mg/dL (7.8-10.44); Carbon Dioxide 13 mmol/L (23-31); Chloride 99 mmol/L (98-107); Glucose 148 mg/dL (83-110); Potassium 3.3 mmol/L (3.5-5.1); Protein, Total 7.4 g/dL (5.8-8.1); Sodium 133 mmol/L (136-145)
[2020-05-28 21:23] LABS: Band 19 % (5-11); Lymphocytes 5 % (21-51); MDiff Complete? YES; Monocytes 3 % (0-10); Neutrophil 73 % (42-75)
[2020-05-28 23:08] LABS: Body Fluid Source Paracentesis Fluid
[2020-05-28 23:09] LABS: BF Color Yellow; Clarity Cloudy/Turbid (Clear); Tube # 3
[2020-05-28 23:29] LABS: RBC Count-Automated (BF) 3313 /cu.mm; WBC/Nucleated-Auto (BF) 3670 uL
[2020-05-28 23:57] LABS: BF Segmented Neutrophils 96 %; Cell Count Non Hematic 3 %; Lymphocytes 1 %
== END 2020-05-28 22:31 | disposition home or self-care (01) ==
LOC: ERS 19:42
DX: R18.8 Other ascites (principal); E03.9 Hypothyroidism, unspecified; I10 Essential (primary) hypertension; Z79.899 Other long term (current) drug therapy
CPT/HCPCS: 80053; 85025; 85060; 89051; 99284

== ENCOUNTER 2020-06-01 21:14 | Inpatient (IN) | payer MEDICARE, MEDICAID ==
[2020-06-01 21:57] LABS: Bilirubin Negative (Negative); Blood, Urine Negative (Negative); Clarity Clear (Clear); Glucose, Urine (Dipstick) Normal (Negative); Ketone, Urine Negative (Negative); Leukocyte Negative Leu/uL (Negative); Nitrite Negative (Negative); Protein, Urine (Dipstick) Negative (Neg-Trace); Specific Gravity, Urine 1.016 (1.002-1.036); Urobilinogen Normal mg/dL (Less than 2); pH, Urine 5.5 (5.0-9.0)
[2020-06-01 22:07] LABS: Amphetamine Not Detected (NotDetected); Barbiturates Screen Not Detected (NotDetected); Benzodiazepine Screen Not Detected (NotDetected); Cocaine Metabolite Screen Not Detected (NotDetected); Medtox Control Line Valid? VALID (VALID); Medtox Reader # READER 4; Methadone Not Detected (NotDetected); Methamphetamine Not Detected (NotDetected); Opiate Screen Not Detected (NotDetected); Oxycodone Screen Not Detected (NotDetected); Phencyclidine (PCP) Not Detected (NotDetected); THC/Cannabinoid Screen Not Detected (NotDetected); Tricyclic Screen Not Detected (NotDetected)
[2020-06-01 22:28] LABS: #Eosinphils 0.1 thou/uL (0.0-0.7); #Lymphocytes 0.9 thou/uL (1.20-3.40); #Monocytes 1.3 thou/uL (0.11-0.59); #Neutrophils 12.6 thou/uL (1.40-6.50); %Basophils 0.1 % (0.0-1.0); %Eosinophils 0.4 % (0.0-10.0); %Lymphocytes 6.3 % (21.0-51.0); %Monocytes 8.4 % (0.0-10.0); %Neutrophils 84.8 % (42.0-75.0); Hemoglobin 11.6 g/dL (12.0-16.0); Mean Corpuscular HGB CONC 31.6 g/dL (32.0-36.0); Mean Corpuscular Hemoglobin 31.2 pg (27.0-31.0); Mean Corpuscular Volume 98.6 fL (78.0-98.0); Mean Platelet Volume 8.1 fL (7.4-10.4); Platelet Count 273 thou/uL (130-400); RBC Distribution Width 13.6 % (11.5-14.5); White Blood Cell (WBC) Count 14.9 thou/uL (4.8-10.8)
[2020-06-01 22:45] LABS: Acetaminophen Less than 6.0 mcg/mL (10.0-30.0); Alcohol Less than 10 mg/dL (Less than 10); Salicylate Less than 8.0 mg/dL (15.0-30.0)
[2020-06-01 23:10] LABS: AST (SGOT) 24 U/L (5-34); Albumin 2.2 g/dL (3.4-4.8); Bilirubin, Total 2.1 mg/dL (0.2-1.2); Carbon Dioxide 23 mmol/L (23-31); Chloride 98 mmol/L (98-107); Globulin 4.9 g/dL (2.4-3.5); Potassium 4.2 mmol/L (3.5-5.1); Protein, Total 7.1 g/dL (5.8-8.1); Sodium 133 mmol/L (136-145)
[2020-06-01 23:11] LABS: Anion Gap 18 mmol/L (10-20)
[2020-06-01 23:12] LABS: Alkaline Phosphatase 93 U/L (40-110); Glucose 56 mg/dL (83-110)
[2020-06-01 23:13] LABS: Calc. Creatinine Clearance 0 mL/min (70-130)
[2020-06-01] MEDS ORDERED: Dextrose 50% Abboject 50 ML SYRINGE ONE (23:13)
[2020-06-01 23:14] LABS: BUN (Urea Nitrogen) 51 mg/dL (9.8-20.1)
[2020-06-01 23:15] LABS: ALT (SGPT) 12 U/L (8-55)
[2020-06-02] MEDS ORDERED: Albumin 25% 25 GM/100 ML BOT IVPB SCH (00:15)
[2020-06-02] MEDS ORDERED: Dextrose 5% in Water 1,000 ML IV PRN (00:25)
[2020-06-02] MEDS ORDERED: Dextrose 50% Abboject 50 ML SYRINGE SLOW IVP PRN (00:25)
[2020-06-02] MEDS ORDERED: Dextrose 10% in Water 1,000 ML IV SCH (00:30)
[2020-06-02] MEDS ORDERED: Vancomycin 1 GM in Premix Bag 1 BAG IVPB SCH (00:30)
[2020-06-02] MEDS ORDERED: Acetaminophen 650 MG Suppository PR PRN (00:32)
[2020-06-02 01:14] LABS: Sodium 132 mmol/L (136-145)
[2020-06-02 01:16] LABS: INR-International Normal Ratio 1.6; PTT 33.1 sec (22.9-36.1); Prothrombin Time 19.2 sec (12.0-14.7)
[2020-06-02] MEDS ORDERED: Sodium Chloride 0.9% 1,000 ML IV SCH (01:45)
[2020-06-02 02:29] VITALS: BMI 24.8
[2020-06-02 02:34] LABS: SARS-CoV-2 PCR by NAA Not Detected (NotDetected)
[2020-06-02] MEDS ORDERED: Cefepime 2 GM in Sodium Chloride 0.9% 100 ML IVPB SCH (03:00)
[2020-06-02] MEDS ORDERED: VANCOMYCIN 1.25 GM/250 ML BAG 1.25 GM in Premix Bag 1 BAG IVPB SCH (04:00)
[2020-06-02 05:15] LABS: #Eosinphils 0.1 thou/uL (0.0-0.7); #Lymphocytes 0.7 thou/uL (1.20-3.40); #Monocytes 0.8 thou/uL (0.11-0.59); #Neutrophils 7.6 thou/uL (1.40-6.50); %Basophils 0.3 % (0.0-1.0); %Eosinophils 0.7 % (0.0-10.0); %Lymphocytes 7.2 % (21.0-51.0); %Monocytes 8.3 % (0.0-10.0); %Neutrophils 83.5 % (42.0-75.0); Hemoglobin 8.4 g/dL (12.0-16.0); Mean Corpuscular HGB CONC 32.7 g/dL (32.0-36.0); Mean Corpuscular Hemoglobin 32.1 pg (27.0-31.0); Mean Corpuscular Volume 98.2 fL (78.0-98.0); Mean Platelet Volume 8.2 fL (7.4-10.4); Platelet Count 183 thou/uL (130-400); RBC Distribution Width 13.5 % (11.5-14.5); White Blood Cell (WBC) Count 9.1 thou/uL (4.8-10.8)
[2020-06-02 05:21] LABS: Lactic Acid 2.6 mmol/L (0.5-2.2)
[2020-06-02 05:33] LABS: Anion Gap 12 mmol/L (10-20); BUN (Urea Nitrogen) 45 mg/dL (9.8-20.1); Calc. Creatinine Clearance 24 mL/min (70-130); Calcium 7.3 mg/dL (7.8-10.44); Carbon Dioxide 22 mmol/L (23-31); Chloride 103 mmol/L (98-107); Glucose 91 mg/dL (83-110); Magnesium 1.9 mg/dL (1.6-2.6); Potassium 3.5 mmol/L (3.5-5.1); Sodium 133 mmol/L (136-145)
[2020-06-02] MEDS: Albumin 25% 25 GM/100 ML BOT IVPB SCH ×3 (05:51→17:03)
[2020-06-02] MEDS: Enoxaparin Sodium 30 MG/0.3 ML SYRINGE SC SCH (08:25)
[2020-06-02] MEDS: Pantoprazole 40 MG VIAL IVP SCH (08:26)
[2020-06-02] MEDS: Sodium Chloride 0.9% 1,000 ML IV SCH ×2 (08:26→17:04)
[2020-06-02] MEDS: cefTRIAXone\\ROCEPHIN 2 GM in Sodium Chloride 0.9% 100 ML IVPB SCH (12:01)
[2020-06-02 15:24] LABS: Lactic Acid 2.5 mmol/L (0.5-2.2)
[2020-06-02] MEDS ORDERED: Sodium Chloride 0.9% 500 ML IV SCH (16:30)
[2020-06-03] MEDS ORDERED: Cefepime 1 GM in Sodium Chloride 0.9% 100 ML IVPB SCH (03:00)
[2020-06-03] MEDS ORDERED: Vancomycin 1 GM in Premix Bag 1 BAG IVPB SCH (04:00)
[2020-06-03] MEDS: Levothyroxine Sodium 125 MCG TAB PO SCH (05:45)
[2020-06-03] MEDS: Sodium Chloride 0.9% 1,000 ML IV SCH (05:46)
[2020-06-03 06:33] LABS: Lactic Acid 1.6 mmol/L (0.5-2.2)
[2020-06-03 06:41] LABS: Troponin I 0.026 ng/mL (< 0.028)
[2020-06-03] MEDS: Enoxaparin Sodium 30 MG/0.3 ML SYRINGE SC SCH (08:31)
[2020-06-03] MEDS: Pantoprazole 40 MG VIAL IVP SCH (08:31)
[2020-06-03 09:18] LABS: Hemoglobin 8.5 g/dL (12.0-16.0); Mean Corpuscular HGB CONC 33.3 g/dL (32.0-36.0); Mean Corpuscular Hemoglobin 33.1 pg (27.0-31.0); Mean Corpuscular Volume 99.4 fL (78.0-98.0); Platelet Count 151 thou/uL (130-400); RBC Distribution Width 13.8 % (11.5-14.5); Red Blood Cell (RBC) Count 2.56 mill/uL (4.20-5.40); White Blood Cell (WBC) Count 7.7 thou/uL (4.8-10.8)
[2020-06-03 09:30] LABS: ALT (SGPT) Less than 7 U/L (8-55); AST (SGOT) 15 U/L (5-34); Alkaline Phosphatase 53 U/L (40-110); Anion Gap 11 mmol/L (10-20); BUN (Urea Nitrogen) 28 mg/dL (9.8-20.1); Calc. Creatinine Clearance 43 mL/min (70-130); Calcium 7.6 mg/dL (7.8-10.44); Carbon Dioxide 20 mmol/L (23-31); Chloride 108 mmol/L (98-107); Globulin 2.9 g/dL (2.4-3.5); Glucose 95 mg/dL (83-110); Protein, Total 5.9 g/dL (5.8-8.1); Sodium 136 mmol/L (136-145)
[2020-06-03 09:35] LABS: Potassium 2.8 mmol/L (3.5-5.1)
[2020-06-03] MEDS: traMADol HCl 50 MG TAB PO PRN ×3 (10:26→23:54)
[2020-06-03] MEDS: Potassium Chloride 20 MEQ TAB PO SCH ×2 (10:26→21:21)
[2020-06-03] MEDS: cefTRIAXone\\ROCEPHIN 2 GM in Sodium Chloride 0.9% 100 ML IVPB SCH (11:59)
[2020-06-03 15:47] LABS: Potassium 2.9 mmol/L (3.5-5.1)
[2020-06-03] MEDS ORDERED: Potassium Chloride 20 MEQ TAB PO SCH (16:00)
[2020-06-03] MEDS: Ondansetron PF 4 MG/2 ML Vial IVP PRN (20:02)
[2020-06-03 22:09] LABS: Potassium 3.3 mmol/L (3.5-5.1)
[2020-06-04] MEDS: Levothyroxine Sodium 125 MCG TAB PO SCH (05:39)
[2020-06-04 06:36] LABS: Anion Gap 12 mmol/L (10-20); BUN (Urea Nitrogen) 20 mg/dL (9.8-20.1); Calc. Creatinine Clearance 57 mL/min (70-130); Calcium 7.7 mg/dL (7.8-10.44); Carbon Dioxide 19 mmol/L (23-31); Chloride 109 mmol/L (98-107); Glucose 114 mg/dL (83-110); Magnesium 1.8 mg/dL (1.6-2.6); Potassium 4.7 mmol/L (3.5-5.1); Sodium 135 mmol/L (136-145)
[2020-06-04] MEDS ORDERED: Spironolactone 25 MG TAB PO SCH (08:00)
[2020-06-04] MEDS: Enoxaparin Sodium 30 MG/0.3 ML SYRINGE SC SCH (08:08)
[2020-06-04] MEDS: Pantoprazole 40 MG VIAL IVP SCH (08:09)
[2020-06-04] MEDS: Potassium Chloride 20 MEQ TAB PO SCH (09:08)
[2020-06-04] MEDS ORDERED: Ciprofloxacin 500 MG TAB PO SCH (10:00)
[2020-06-04] MEDS: Ondansetron PF 4 MG/2 ML Vial IVP PRN (18:24)
[2020-06-04] MEDS: Rifaximin 550 MG TAB PO SCH (21:31)
[2020-06-04] MEDS: Enoxaparin Sodium 40 MG/0.4 ML SYRINGE SC SCH (21:32)
[2020-06-05] MEDS: traMADol HCl 50 MG TAB PO PRN (02:30)
[2020-06-05] MEDS ORDERED: Levothyroxine 150 MCG TAB PO SCH (06:00)
[2020-06-05] MEDS: Enoxaparin Sodium 40 MG/0.4 ML SYRINGE SC SCH ×3 (08:17→21:25)
[2020-06-05] MEDS: Rifaximin 550 MG TAB PO SCH ×2 (08:18→21:17)
[2020-06-05] MEDS: Ciprofloxacin 500 MG TAB PO SCH (08:18)
[2020-06-05] MEDS: Propranolol 10 MG TAB PO SCH (08:18)
[2020-06-05] MEDS ORDERED: Furosemide 40 MG/4 ML VIAL ONE (23:31)
[2020-06-05] MEDS ORDERED: Magnesium 2 GM/50 ML 2 GM in Premix Bag 1 BAG IVPB SCH (23:45)
[2020-06-05 23:55] LABS: Hemoglobin 9.8 g/dL (12.0-16.0); Mean Corpuscular HGB CONC 33.9 g/dL (32.0-36.0); Mean Corpuscular Hemoglobin 34.1 pg (27.0-31.0); Mean Platelet Volume 7.9 fL (7.4-10.4); Platelet Count 216 thou/uL (130-400); RBC Distribution Width 14.1 % (11.5-14.5); Red Blood Cell (RBC) Count 2.87 mill/uL (4.20-5.40); White Blood Cell (WBC) Count 15.5 thou/uL (4.8-10.8)
[2020-06-05 23:58] LABS: Anion Gap 13 mmol/L (10-20); BUN (Urea Nitrogen) 15 mg/dL (9.8-20.1); Calc. Creatinine Clearance 74 mL/min (70-130); Calcium 7.5 mg/dL (7.8-10.44); Carbon Dioxide 14 mmol/L (23-31); Chloride 107 mmol/L (98-107); Glucose 102 mg/dL (83-110); Potassium 5.4 mmol/L (3.5-5.1); Sodium 129 mmol/L (136-145)
[2020-06-05] MEDS ORDERED: Furosemide 20 MG/2 ML VIAL SLOW IVP SCH (23:59)
[2020-06-06 00:10] LABS: Band 2 % (5-11); Eosinophils 2 % (0-10); Hypochromia SLIGHT = 6-15 cells (100X) (0-5/hpf); Lymphocytes 13 % (21-51); MDiff Complete? YES; Monocytes 2 % (0-10); Neutrophil 81 % (42-75); Platelet Morphology Comment Appears Adequate
[2020-06-06] MEDS ORDERED: Levothyroxine 175 MCG TAB PO SCH (06:00)
[2020-06-06 06:05] LABS: #Eosinphils 0.3 thou/uL (0.0-0.7); #Neutrophils 12.7 thou/uL (1.40-6.50); %Basophils 0.2 % (0.0-1.0); %Eosinophils 2.1 % (0.0-10.0); %Lymphocytes 6.4 % (21.0-51.0); %Monocytes 6.4 % (0.0-10.0); %Neutrophils 84.8 % (42.0-75.0); Hemoglobin 9.4 g/dL (12.0-16.0); Mean Corpuscular HGB CONC 31.7 g/dL (32.0-36.0); Mean Corpuscular Hemoglobin 31.9 pg (27.0-31.0); Mean Platelet Volume 8.1 fL (7.4-10.4); Platelet Count 198 thou/uL (130-400); RBC Distribution Width 14.3 % (11.5-14.5); Red Blood Cell (RBC) Count 2.95 mill/uL (4.20-5.40)
[2020-06-06] MEDS: Levothyroxine 150 MCG TAB PO SCH (06:19)
[2020-06-06] MEDS: Propranolol 10 MG TAB PO SCH (06:19)
[2020-06-06 06:23] LABS: Anion Gap 13 mmol/L (10-20); BUN (Urea Nitrogen) 16 mg/dL (9.8-20.1); Calc. Creatinine Clearance 73 mL/min (70-130); Calcium 7.6 mg/dL (7.8-10.44); Carbon Dioxide 15 mmol/L (23-31); Chloride 106 mmol/L (98-107); Glucose 109 mg/dL (83-110); Potassium 5.2 mmol/L (3.5-5.1); Sodium 129 mmol/L (136-145)
[2020-06-06] MEDS: Rifaximin 550 MG TAB PO SCH ×2 (08:29→22:05)
[2020-06-06] MEDS: Enoxaparin Sodium 40 MG/0.4 ML SYRINGE SC SCH ×3 (08:29→22:05)
[2020-06-06] MEDS: Liothyronine Sodium 5 MCG TAB PO SCH (08:29)
[2020-06-06] MEDS: Ciprofloxacin 500 MG TAB PO SCH (08:29)
[2020-06-06] MEDS ORDERED: Sodium Bicarbonate 2.5 MEQ/5 ML VIAL ONE (10:07)
[2020-06-06] MEDS ORDERED: Lidocaine 1% PF 5 ML VIAL ONE (10:07)
[2020-06-06] MEDS ORDERED: Vancomycin HCl 25 MG/ML Oral PO SCH (10:15)
[2020-06-06] MEDS: Vancomycin HCl 25 MG/ML Oral PO SCH ×3 (14:00→22:02)
[2020-06-06 14:03] LABS: Fluid, Bilirubin Total 0.6 mg/dL (Not Available); Fluid, Protein 1.2 g/dL (Not Available)
[2020-06-06 14:20] LABS: BF Color Yellow; BF RBC Count - Manual 780 /cu.mm; BF WBC/Nonhematics Ct.-Manual 151 /cu.mm; Body Fluid Source Ascites Body Fluid; Clarity Hazy (Clear); Tube # EDTA
[2020-06-06 14:24] LABS: BF Segmented Neutrophils 42 %; Cell Count Non Hematic 26 %; Eosinophils 2 %; Lymphocytes 29 %
[2020-06-06] MEDS ORDERED: Sodium Bicarb 50 MEQ/50 ML Abboject 8.4% SYRINGE IVP SCH (14:30)
[2020-06-06] MEDS ORDERED: Albumin 25% 25 GM/100 ML BOT IVPB SCH (14:53)
[2020-06-06] MEDS: Sodium Bicarbonate Tab 325 MG TAB PO SCH ×2 (15:57→22:02)
[2020-06-06 18:21] LABS: SARS-CoV-2 PCR by NAA Not Detected (NotDetected)
[2020-06-07] MEDS: Levothyroxine 150 MCG TAB PO SCH (04:58)
[2020-06-07 06:48] LABS: ALT (SGPT) Less than 7 U/L (8-55); AST (SGOT) 19 U/L (5-34); Albumin 2.6 g/dL (3.4-4.8); Alkaline Phosphatase 58 U/L (40-110); Anion Gap 10 mmol/L (10-20); BUN (Urea Nitrogen) 22 mg/dL (9.8-20.1); Bilirubin, Total 1.8 mg/dL (0.2-1.2); Calc. Creatinine Clearance 65 mL/min (70-130); Calcium 7.8 mg/dL (7.8-10.44); Carbon Dioxide 20 mmol/L (23-31); Chloride 108 mmol/L (98-107); Globulin 3.6 g/dL (2.4-3.5); Glucose 110 mg/dL (83-110); Potassium 5.3 mmol/L (3.5-5.1); Protein, Total 6.2 g/dL (5.8-8.1); Sodium 133 mmol/L (136-145)
[2020-06-07] MEDS: Enoxaparin Sodium 40 MG/0.4 ML SYRINGE SC SCH (07:44)
[2020-06-07] MEDS: Sodium Bicarbonate Tab 325 MG TAB PO SCH ×3 (07:45→20:57)
[2020-06-07] MEDS: Ciprofloxacin 500 MG TAB PO SCH (07:45)
[2020-06-07] MEDS: Rifaximin 550 MG TAB PO SCH ×2 (07:45→20:57)
[2020-06-07] MEDS: Liothyronine Sodium 5 MCG TAB PO SCH (07:45)
[2020-06-07] MEDS: Propranolol 10 MG TAB PO SCH (07:45)
[2020-06-07] MEDS ORDERED: Iopamidol 370 76% 100 ML VIAL ONE (08:28)
[2020-06-07] MEDS: Vancomycin HCl 25 MG/ML Oral PO SCH ×4 (09:02→20:58)
[2020-06-07] MEDS ORDERED: Nitroglycerin 0.4 MG TAB (25 Tab Bottle) SL PRN (10:48)
[2020-06-07 11:21] LABS: Actual Bicarbonate (HCO3a) 21.8 mEq/L (22-28); Base Excess (BEa) -5.8 mEq/L (-2.0 to +3.0); CO2 Tension 54.2 mmHg (35.0-45.0); Calcium, Ionized (arterial) 1.19 mmol/L (1.12-1.30); Carboxyhemoglobin (COHb) 0.5 gm% (0.0-3.0); Hemoglobin (Hb) 9.4 g/dL (12.0-16.0); O2 Tension (PaO2), arterial 108.3 mmHg (> 70.0); Potassium - ABG Lab 4.93 mmol/L (3.70-5.30)
[2020-06-07 11:26] LABS: pH, Arterial 7.22 (7.35-7.45)
[2020-06-07 11:27] LABS: Puncture Site LRA
[2020-06-07 11:33] LABS: Troponin I 0.436 ng/mL (< 0.028)
[2020-06-07 11:36] LABS: Hemoglobin 8.9 g/dL (12.0-16.0); Mean Corpuscular HGB CONC 30.3 g/dL (32.0-36.0); Mean Corpuscular Hemoglobin 30.8 pg (27.0-31.0); RBC Distribution Width 14.5 % (11.5-14.5)
[2020-06-07 11:41] LABS: Eosinophils 3 % (0-10); Lymphocytes 4 % (21-51); MDiff Complete? YES; Mean Platelet Volume 8.1 fL (7.4-10.4); Monocytes 5 % (0-10); Neutrophil 88 % (42-75); Platelet Count 254 thou/uL (130-400); Platelet Morphology Comment Appears Adequate; White Blood Cell (WBC) Count 20.1 thou/uL (4.8-10.8)
[2020-06-07 11:42] VITALS: BP 100/66
[2020-06-07] MEDS ORDERED: Enoxaparin Sodium 40 MG/0.4 ML SYRINGE SC SCH (11:56)
[2020-06-07] MEDS ORDERED: Aspirin 81 mg Enteric Coated Tablet PO SCH (12:30)
[2020-06-07] MEDS: Furosemide 20 MG/2 ML VIAL SLOW IVP SCH (13:06)
[2020-06-07 16:04] LABS: INR-International Normal Ratio 1.7; PTT 31.8 sec (22.9-36.1); Prothrombin Time 20.5 sec (12.0-14.7)
[2020-06-07 16:04] LABS: CKMB 5.8 ng/mL (0-6.6)
[2020-06-07 16:06] LABS: Critical Call Chem Troponin I RESULT DECREASING
[2020-06-07 18:50] LABS: Anion Gap 9 mmol/L (10-20); BUN (Urea Nitrogen) 25 mg/dL (9.8-20.1); Calc. Creatinine Clearance 51 mL/min (70-130); Calcium 7.9 mg/dL (7.8-10.44); Carbon Dioxide 21 mmol/L (23-31); Chloride 108 mmol/L (98-107); Glucose 136 mg/dL (83-110); Sodium 133 mmol/L (136-145)
[2020-06-07 19:09] LABS: Critical Call Chem Troponin I RESULT DECREASING
[2020-06-07] MEDS: Carvedilol 3.125 MG TAB PO SCH (20:57)
[2020-06-07] MEDS ORDERED: Enoxaparin Sodium 80 MG/0.8 ML SYRINGE SC SCH (21:00)
[2020-06-08 03:53] LABS: #Lymphocytes 1.5 thou/uL (1.20-3.40); #Monocytes 1.5 thou/uL (0.11-0.59); #Neutrophils 19.4 thou/uL (1.40-6.50); %Eosinophils 0.2 % (0.0-10.0); %Lymphocytes 6.7 % (21.0-51.0); %Monocytes 6.6 % (0.0-10.0); %Neutrophils 86.5 % (42.0-75.0); Hemoglobin 8.7 g/dL (12.0-16.0); Mean Corpuscular HGB CONC 31.1 g/dL (32.0-36.0); Mean Corpuscular Hemoglobin 31.8 pg (27.0-31.0); Mean Platelet Volume 8.2 fL (7.4-10.4); Platelet Count 208 thou/uL (130-400); RBC Distribution Width 14.8 % (11.5-14.5); Red Blood Cell (RBC) Count 2.73 mill/uL (4.20-5.40); White Blood Cell (WBC) Count 22.5 thou/uL (4.8-10.8)
[2020-06-08 04:03] LABS: Anion Gap 13 mmol/L (10-20); BUN (Urea Nitrogen) 26 mg/dL (9.8-20.1); Calc. Creatinine Clearance 49 mL/min (70-130); Carbon Dioxide 17 mmol/L (23-31); Chloride 106 mmol/L (98-107); Glucose 114 mg/dL (83-110); Potassium 5.4 mmol/L (3.5-5.1); Sodium 131 mmol/L (136-145)
[2020-06-08 04:08] VITALS: TEMP 97.5
[2020-06-08] MEDS: Furosemide 20 MG/2 ML VIAL SLOW IVP SCH (06:04)
[2020-06-08] MEDS: Levothyroxine 150 MCG TAB PO SCH (06:04)
[2020-06-08] MEDS: Rifaximin 550 MG TAB PO SCH (08:33)
[2020-06-08] MEDS: Ciprofloxacin 500 MG TAB PO SCH (08:33)
[2020-06-08] MEDS: Carvedilol 3.125 MG TAB PO SCH (08:33)
[2020-06-08] MEDS: Vancomycin HCl 25 MG/ML Oral PO SCH ×2 (08:34→13:03)
[2020-06-08] MEDS: Sodium Bicarbonate Tab 325 MG TAB PO SCH (08:44)
[2020-06-08] MEDS ORDERED: Furosemide 20 MG TAB PO SCH (09:00)
[2020-06-08] MEDS ORDERED: Aspirin 81 mg Enteric Coated Tablet PO SCH (09:00)
[2020-06-08] MEDS ORDERED: Megestrol Acetate 40 MG TAB PO SCH (09:00)
[2020-06-08] MEDS ORDERED: Scopolamine 1.5 mg/72 hour Patch TOP SCH (11:00)
[2020-06-08] MEDS ORDERED: Spironolactone 25 MG TAB PO SCH (17:00)
== END 2020-06-08 13:25 | disposition hospice, inpatient (51) | DRG 871 ==
LOC: ERS 21:14 → T4-B 23:45 → CCU 06-07 15:12
PROVIDERS: ADMIT Student in an Organized Health Care Education/Training Program; ATTEND Internal Medicine
PROC: 0W9G3ZZ Drainage of Peritoneal Cavity, Percutaneous Approach (ICD-10-PCS; principal; 2020-06-06)
DX: A41.9 Sepsis, unspecified organism (principal); G93.41 Metabolic encephalopathy; K65.2 Spontaneous bacterial peritonitis; K76.7 Hepatorenal syndrome; I21.A1 Myocardial infarction type 2; R57.0 Cardiogenic shock; J96.90 Respiratory failure, unspecified, unspecified whether with hypoxia or hypercapnia; N17.9 Acute kidney failure, unspecified; R18.8 Other ascites; E87.2 Acidosis; I85.10 Secondary esophageal varices without bleeding; E87.1 Hypo-osmolality and hyponatremia; K52.1 Toxic gastroenteritis and colitis; A04.72 Enterocolitis due to Clostridium difficile, not specified as recurrent; I51.81 Takotsubo syndrome; I13.0 Hypertensive heart and chronic kidney disease with heart failure and stage 1 through stage 4 chronic kidney disease, or unspecified chronic kidney disease; E44.0 Moderate protein-calorie malnutrition; I82.411 Acute embolism and thrombosis of right femoral vein; N18.9 Chronic kidney disease, unspecified; E03.9 Hypothyroidism, unspecified; F41.9 Anxiety disorder, unspecified; K21.9 Gastro-esophageal reflux disease without esophagitis; L40.9 Psoriasis, unspecified; K72.90 Hepatic failure, unspecified without coma; M79.89 Other specified soft tissue disorders; K74.60 Unspecified cirrhosis of liver; D64.9 Anemia, unspecified; E83.51 Hypocalcemia; E16.2 Hypoglycemia, unspecified; Z20.822 Contact with and (suspected) exposure to COVID-19; F32.9 Major depressive disorder, single episode, unspecified; I50.9 Heart failure, unspecified; E87.6 Hypokalemia; T47.3X5A Adverse effect of saline and osmotic laxatives, initial encounter; R53.81 Other malaise; E87.5 Hyperkalemia; Z88.0 Allergy status to penicillin; Z88.8 Allergy status to other drugs, medicaments and biological substances; Z90.49 Acquired absence of other specified parts of digestive tract; Z98.51 Tubal ligation status; Z68.24 Body mass index [BMI] 24.0-24.9, adult
CPT/HCPCS: 36415; 36416; 36600; 49083; 51702; 70450; 71045; 71275; 76770; 80048; 80053; 80306; 80307; 81003; 82140; 82150; 82247; 82553; 82607; 82746; 82805; 82945; 83605; 83615; 83690; 83735; 83880; 83986; 84156; 84157; 84295; 84300; 84439; 84443; 84484; 85025; 85027; 85060; 85379; 85610; 85730; 87040; 87070; 87086; 87205; 87324; 87449; 87493; 87635; 89051; 93005; 93010; 93306; 94640; 96374; 96375; C9113; J0692; J0696; J1650; J1940; J2405; J3370; J3475; J3490; J7620; P9047; Q9967; S0179; U0003; U0005